=== PATIENT | female | born 1940 | race Caucasian/White ===

== ENCOUNTER 2019-07-18 10:20 | Outpatient (CLI) | payer MEDICARE, SELFPAY ==
[2019-07-18 10:35] LABS: Basophils Absolute Auto 0.08 K/mm3 (0.00-0.10); Basophils Percent Auto 0.9 % (0.0-1.0); Eosinophils Absolute Auto 0.16 K/mm3 (0.02-0.50); Eosinophils Percent Auto 1.8 % (1.0-6.0); Hematocrit 45.4 % (35.0-42.0); Hemoglobin 14.7 g/dL (11.7-13.8); Immature Granulocyte Absolute 0.04 K/mm3 (0.00-0.00); Immature Granulocyte Percent A 0.5 % (0.0-0.0); Lymphocytes Absolute Auto 1.89 K/mm3 (1.10-4.50); Lymphocytes Percent Auto 21.7 % (18.0-42.0); Mean Corpuscular HGB Conc 32.4 g/dL (32.0-36.0); Mean Corpuscular Hemoglobin 29.6 pg (27.0-31.0); Mean Corpuscular Volume 91.3 fL (78.0-102.0); Mean Platelet Volume 9.7 fl (9.2-11.8); Monocytes Absolute Auto 0.79 K/mm3 (0.10-0.90); Monocytes Percent Auto 9.1 % (2.0-11.0); Neutrophils Absolute Auto 5.8 K/mm3 (1.7-7.2); Platelet Count Result 254 K/mm3 (150-420); Red Blood Count 4.97 M/mm3 (4.20-5.40); Red Cell Distribution Width 13.9 % (11.6-14.4); White Blood Count 8.7 K/mm3 (4.8-10.8)
[2019-07-18 11:00] LABS: Anion Gap 11.6 mmol/L (7-16); Blood Urea Nitrogen 20 mg/dL (7-18); Calcium 8.9 mg/dL (8.5-10.1); Carbon Dioxide 29 mmol/L (21-32); Chloride 106 mmol/L (98-108); Estimated Glomerular Filt Rate 53; Glucose 90 mg/dL (70-99); Osmolality Calculated 296 mOsm/kg (285-295); Potassium 4.6 mmol/L (3.5-5.1); Sodium 142 mmol/L (136-145)
== END 2019-07-18 10:21 | disposition home or self-care (01) ==
PROVIDERS: PCP Nurse Practitioner Family; Visit Provider Internal Medicine Hematology & Oncology
DX: I26.99 Other pulmonary embolism without acute cor pulmonale (principal)
CPT/HCPCS: 36415; 80048; 85025

== ENCOUNTER 2020-08-13 12:51 | Outpatient (CLI) | payer MEDICARE, SELFPAY ==
[2020-08-13 13:06] LABS: Basophils Absolute Auto 0.1 K/mm3 (0.0-0.1); Basophils Percent Auto 0.8 % (0.2-1.2); Eosinophils Absolute Auto 0.3 K/mm3 (0-0.3); Eosinophils Percent Auto 2.9 % (0-4.4); Hemoglobin 14.6 g/dL (12.0-15.0); Immature Granulocyte Absolute 0.02 K/mm3 (0.00-0.031); Immature Granulocyte Percent A 0.2 % (0-0.5); Lymphocytes Absolute Auto 2.04 K/mm3 (0.9-3.2); Lymphocytes Percent Auto 22.6 % (18.3-44.2); Mean Corpuscular HGB Conc 31.7 g/dl (32-36); Mean Corpuscular Hemoglobin 29.3 pg (26-34); Mean Corpuscular Volume 92.2 fl (80-100); Mean Platelet Volume 9.5 fl (7.4-10.4); Monocytes Absolute Auto 0.8 K/mm3 (0.1-0.6); Monocytes Percent Auto 8.7 % (2.6-8.5); Neutrophils Absolute Auto 5.8 K/mm3 (1.3-6.7); Neutrophils Percent Auto 64.8 % (45.5-73.1); Platelet Count Result 274 k/mm3 (150-375); Red Blood Count 4.99 M/mm3 (4.2-5.4); Red Cell Distribution Width 13.5 % (11.5-14.5)
[2020-08-13 13:10] LABS: Blood Urea Nitrogen 23 mg/dL (8-26); Carbon Dioxide 30 mmol/L (22-30); Chloride 100 mmol/L (98-109); Estimated Glomerular Filt Rate 53; Glucose 83 mg/dL (70-105); Potassium 4.2 mmol/L (3.5-4.9); Sodium 140 mmol/L (138-146)
[2020-08-13 14:35] LABS: Alanine Aminotransferase 14 U/L (4-35); Albumin Level 3.9 g/dL (3.5-5.1); Alkaline Phosphatase 94 U/L (38-126); Anion Gap 6 mmol/L (8-16); Aspartate Amino Transferase 25 U/L (14-36); Bilirubin,Total 0.3 mg/dL (0.2-1.3); Blood Urea Nitrogen 22 mg/dL (7-17); Calcium 9.1 mg/dL (8.4-10.2); Carbon Dioxide 31 mmol/L (22-30); Chloride 103 mmol/L (98-107); Estimated Glomerular Filt Rate 60; Glucose 84 mg/dL (65-105); Potassium 4.2 mmol/L (3.4-5.0); Sodium 140 mmol/L (137-145)
== END 2020-08-13 12:52 | disposition home or self-care (01) ==
LOC: ANHLAB 12:55
PROVIDERS: PCP Nurse Practitioner Family; Visit Provider Internal Medicine Hematology & Oncology
DX: D68.59 Other primary thrombophilia (principal)
CPT/HCPCS: 36415; 80048; 80053; 85025

== ENCOUNTER 2021-02-03 15:40 | Outpatient (CLI) | payer MEDICARE, SELFPAY ==
[2021-02-03 15:57] LABS: Basophils Absolute Auto 0.07 K/mm3 (0.00-0.10); Basophils Percent Auto 0.8 % (0.0-1.0); Eosinophils Absolute Auto 0.22 K/mm3 (0.02-0.50); Eosinophils Percent Auto 2.5 % (1.0-6.0); Hematocrit 46.6 % (35.0-42.0); Hemoglobin 15.1 g/dL (11.7-13.8); Immature Granulocyte Absolute 0.02 K/mm3 (0.00-0.00); Immature Granulocyte Percent A 0.2 % (0.0-0.0); Lymphocytes Absolute Auto 2.36 K/mm3 (1.10-4.50); Lymphocytes Percent Auto 26.7 % (18.0-42.0); Mean Corpuscular HGB Conc 32.4 g/dL (32.0-36.0); Mean Corpuscular Hemoglobin 30.2 pg (27.0-31.0); Mean Corpuscular Volume 93.2 fL (78.0-102.0); Mean Platelet Volume 9.4 fl (9.2-11.8); Monocytes Absolute Auto 0.88 K/mm3 (0.10-0.90); Neutrophils Absolute Auto 5.3 K/mm3 (1.7-7.2); Neutrophils Percent Auto 59.8 % (50.0-70.0); Platelet Count Result 258 K/mm3 (150-420); Red Cell Distribution Width 13.2 % (11.6-14.4); White Blood Count 8.8 K/mm3 (4.8-10.8)
[2021-02-03 16:30] LABS: Alanine Aminotransferase 23 U/L (14-59); Albumin Level 3.8 g/dL (3.4-5.0); Alkaline Phosphatase 102 U/L (46-116); Anion Gap 7 mmol/L (8-16); Aspartate Amino Transferase 19 U/L (15-37); Bilirubin,Total 0.3 mg/dL (0.00-1.00); Blood Urea Nitrogen 16 mg/dL (7-18); Carbon Dioxide 31 mmol/L (21-32); Chloride 105 mmol/L (98-108); Cholesterol 250 mg/dL (0-200); Estimated Glomerular Filt Rate > 60; Glucose 102 mg/dL (70-99); HDL Direct 49 mg/dL (40-60); LDL Cholesterol Calculated 170 mg/dL (<130); Osmolality Calculated 297 mOsm/kg (285-295); Potassium 5.1 mmol/L (3.5-5.1); Sodium 143 mmol/L (136-145); Triglycerides 157 mg/dL (0-150)
== END 2021-02-03 15:41 | disposition home or self-care (01) ==
LOC: CHSLAB 15:43
PROVIDERS: PCP Nurse Practitioner Family; Visit Provider Nurse Practitioner Family
DX: E78.5 Hyperlipidemia, unspecified (principal); I10 Essential (primary) hypertension
CPT/HCPCS: 36415; 80053; 80061; 85025

== ENCOUNTER 2023-02-15 12:15 | Outpatient (CLI) | payer MEDICARE, SELFPAY ==
[2023-02-15 12:32] LABS: Basophils Absolute Auto 0.1 K/mm3 (0.0-0.1); Basophils Percent Auto 0.8 % (0.2-1.2); Eosinophils Absolute Auto 0.3 K/mm3 (0-0.3); Immature Granulocyte Absolute 0.02 K/mm3 (0.00-0.031); Immature Granulocyte Percent A 0.2 % (0-0.5); Lymphocytes Absolute Auto 2.07 K/mm3 (0.9-3.2); Lymphocytes Percent Auto 25.1 % (18.3-44.2); Mean Corpuscular HGB Conc 32.6 g/dl (32-36); Mean Corpuscular Hemoglobin 30.3 pg (26-34); Mean Corpuscular Volume 93.1 fl (80-100); Mean Platelet Volume 9.2 fl (7.4-10.4); Monocytes Absolute Auto 0.9 K/mm3 (0.1-0.6); Monocytes Percent Auto 10.3 % (2.6-8.5); Neutrophils Percent Auto 60.6 % (45.5-73.1); Platelet Count Result 286 k/mm3 (150-375); Red Blood Count 4.62 M/mm3 (4.2-5.4); Red Cell Distribution Width 12.7 % (11.5-14.5); White Blood Count 8.3 K/mm3 (4.5-10.0)
[2023-02-15 12:37] LABS: Blood Urea Nitrogen 30 mg/dL (8-26); Carbon Dioxide 30 mmol/L (22-30); Chloride 96 mmol/L (98-109); Estimated Glomerular Filt Rate 36; Glucose 97 mg/dL (70-105); Sodium 137 mmol/L (138-146)
[2023-02-15 13:56] LABS: Alanine Aminotransferase 16 U/L (6-35); Albumin Level 3.8 g/dL (3.5-5.1); Alkaline Phosphatase 87 U/L (38-126); Anion Gap 5 mmol/L (8-16); Aspartate Amino Transferase 26 U/L (14-36); Bilirubin,Total 0.4 mg/dL (0.2-1.3); Blood Urea Nitrogen 31 mg/dL (7-17); Calcium 9.1 mg/dL (8.4-10.2); Carbon Dioxide 34 mmol/L (22-30); Chloride 97 mmol/L (98-107); Estimated Glomerular Filt Rate 43; Glucose 95 mg/dL (65-110); Sodium 136 mmol/L (137-145)
== END 2023-02-15 12:16 | disposition home or self-care (01) ==
LOC: ANHLAB 12:18
PROVIDERS: PCP Nurse Practitioner Family; Visit Provider Internal Medicine Hematology & Oncology
DX: D68.69 Other thrombophilia (principal)
CPT/HCPCS: 36415; 80047; 80053; 85025

== ENCOUNTER 2023-11-13 15:57 | Outpatient (CLI) | payer MEDICARE, OTHER, SELFPAY ==
[2023-11-13 16:18] LABS: Basophils Absolute Auto 0.06 K/mm3 (0.00-0.10); Basophils Percent Auto 0.7 % (0.0-1.0); Eosinophils Absolute Auto 0.31 K/mm3 (0.02-0.50); Eosinophils Percent Auto 3.8 % (1.0-6.0); Hematocrit 40.1 % (35.0-42.0); Hemoglobin 13.4 g/dL (11.7-13.8); Immature Granulocyte Absolute 0.03 K/mm3 (0.00-0.00); Immature Granulocyte Percent A 0.4 % (0.0-0.0); Lymphocytes Absolute Auto 1.76 K/mm3 (1.10-4.50); Lymphocytes Percent Auto 21.5 % (18.0-42.0); Mean Corpuscular HGB Conc 33.4 g/dL (32-36); Mean Corpuscular Hemoglobin 29.8 pg (27.0-31.0); Mean Corpuscular Volume 89.3 fL (78.0-102.0); Monocytes Absolute Auto 0.83 K/mm3 (0.10-0.90); Monocytes Percent Auto 10.1 % (2.0-11.0); Neutrophils Percent Auto 63.5 % (50.0-70.0); Platelet Count Result 283 K/mm3 (150-420); Red Blood Count 4.49 M/mm3 (4.20-5.40); Red Cell Distribution Width 12.7 % (11.6-14.4); White Blood Count 8.2 K/mm3 (4.8-10.8)
[2023-11-13 16:19] LABS: Appearance Urine Clear (Clear); Bilirubin Urine Negative (Negative); Blood Urine Trace-intact (Negative); Color Urine Light Yellow (Yellow); Glucose Urine UA Negative (Negative); Ketones Urine Negative (Negative); Leukocyte Esterase Ur 1+ LEU/UL (Negative); Nitrate Urine Negative (Negative); Protein Urine Negative (Negative); Specific Grav Ur <= 1.005 (1.010-1.020); Urobilinogen Urine 0.2 mg/dL (0.2-1.0)
[2023-11-13 16:21] LABS: Add Urine Microscopic? YES
[2023-11-13 16:29] LABS: Bacteria Urine None seen /hpf; Mucus Urine Few /lpf; Squamous Epithelial Cell Urine None Seen /hpf (Few)
[2023-11-13 17:13] LABS: Alanine Aminotransferase 17 U/L (14-59); Albumin Level 3.6 g/dL (3.4-5.0); Alkaline Phosphatase 83 U/L (46-116); Anion Gap 8 mmol/L (4-12); Aspartate Amino Transferase 18 U/L (15-37); Bilirubin,Total 0.4 mg/dL (0.00-1.00); Blood Urea Nitrogen 23 mg/dL (7-18); Calcium 8.7 mg/dL (8.5-10.1); Carbon Dioxide 29 mmol/L (21-32); Chloride 97 mmol/L (98-108); Cholesterol 239 mg/dL (0-200); Estimated Glomerular Filt Rate 50; Glucose 98 mg/dL (70-99); HDL Direct 59 mg/dL (40-60); LDL Cholesterol Calculated 155 mg/dL (<130); Osmolality Calculated 281 mOsm/kg (285-295); Potassium 3.8 mmol/L (3.5-5.1); Sodium 134 mmol/L (136-145); Total Protein 6.7 g/dL (6.4-8.2); Triglycerides 124 mg/dL (0-150)
== END 2023-11-13 15:58 | disposition home or self-care (01) ==
LOC: CHSLAB 16:01
PROVIDERS: PCP Nurse Practitioner Family; Visit Provider Nurse Practitioner Family
DX: I10 Essential (primary) hypertension (principal); R31.9 Hematuria, unspecified; E78.5 Hyperlipidemia, unspecified; R82.90 Unspecified abnormal findings in urine
CPT/HCPCS: 36415; 80053; 80061; 81001; 85025; 87086; 87088

== ENCOUNTER 2024-02-16 09:27 | Outpatient (NON) | payer MEDICARE, SELFPAY ==
[2024-02-16 09:35] LABS: Bilirubin Urine Negative (Negative); Blood Urine 3+ (Negative); Glucose Urine UA Negative (Negative); Ketones Urine Negative (Negative); Leukocyte Esterase Ur 1+ LEU/UL (Negative); Nitrate Urine Negative (Negative); Protein Urine 1+ (Negative); Specific Grav Ur 1.015 (1.010-1.020); Urobilinogen Urine 0.2 mg/dL (0.2-1.0); pH Urine 6.5 (5.0-8.0)
[2024-02-16 09:37] LABS: Add Urine Microscopic? YES
[2024-02-16 09:38] LABS: Color Urine Light Red (Yellow)
[2024-02-16 09:40] LABS: Appearance Urine Cloudy (Clear); Bacteria Urine 1+ /hpf; Squamous Epithelial Cell Urine Few /hpf (Few); WBC Urine 51-75 /hpf (0-3)
== END 2024-02-16 09:28 | disposition home or self-care (01) ==
LOC: CHSLAB 09:28
PROVIDERS: PCP Nurse Practitioner Family; Visit Provider Nurse Practitioner Family
DX: R31.9 Hematuria, unspecified (principal)
CPT/HCPCS: 81001; 87086; 87088

== ENCOUNTER 2024-02-21 12:30 | Outpatient (CLI) | payer MEDICARE, OTHER, SELFPAY ==
[2024-02-21 12:44] LABS: Basophils Absolute Auto 0.1 K/mm3 (0.0-0.1); Basophils Percent Auto 0.7 % (0.2-1.2); Eosinophils Absolute Auto 0.3 K/mm3 (0-0.3); Hematocrit 42.8 % (37.0-47.0); Hemoglobin 13.8 g/dL (12.0-15.0); Immature Granulocyte Absolute 0.04 K/mm3 (0.00-0.031); Immature Granulocyte Percent A 0.4 % (0-0.5); Lymphocytes Absolute Auto 2.12 K/mm3 (0.9-3.2); Lymphocytes Percent Auto 19.5 % (18.3-44.2); Mean Corpuscular HGB Conc 32.2 g/dl (32-36); Mean Corpuscular Hemoglobin 29.9 pg (26-34); Mean Corpuscular Volume 92.6 fl (80-100); Mean Platelet Volume 9.1 fl (7.4-10.4); Monocytes Percent Auto 8.9 % (2.6-8.5); Neutrophils Absolute Auto 7.3 K/mm3 (1.3-6.7); Neutrophils Percent Auto 67.5 % (45.5-73.1); Platelet Count Result 301 k/mm3 (150-375); Red Blood Count 4.62 M/mm3 (4.2-5.4); Red Cell Distribution Width 12.9 % (11.5-14.5); White Blood Count 10.9 K/mm3 (4.5-10.0)
[2024-02-21 12:48] LABS: Blood Urea Nitrogen 22 mg/dL (8-26); Carbon Dioxide 29 mmol/L (22-30); Chloride 98 mmol/L (98-109); Estimated Glomerular Filt Rate 39; Glucose 90 mg/dL (70-105); Ionized Calcium (POC) 1.14 mmol/L (1.11-1.31); Potassium 3.8 mmol/L (3.5-4.9); Sodium 136 mmol/L (138-146)
== END 2024-02-21 12:31 | disposition home or self-care (01) ==
LOC: ANHLAB 12:32
PROVIDERS: PCP Nurse Practitioner Family; Visit Provider Internal Medicine Hematology & Oncology
DX: D68.69 Other thrombophilia (principal)
CPT/HCPCS: 36415; 80047; 85025

== ENCOUNTER 2024-03-17 15:04 | Emergency (ER) | payer MEDICARE, OTHER, SELFPAY ==
[2024-03-17] VITALS (43 sets, daily range): BP systolic 108–158; BP diastolic 51–77; PULSE 56–71; RESP 19–27; TEMP 36.4; O2SAT 94–100
--- NOTE | ~2024-03-17 | CT_ITS ---
EXAMINATION: CT brain wo con DATE: 03/17/2024 16:04 INDICATION: AMS/weakness x5 days . TECHNIQUE: Computed tomography (CT) of the head was performed without intravenous contrast. The mA wa s adjusted according to patient size. Iterative reconstruction technique was employed. The dose-lengt h product was 605.33 mGy-cm. COMPARISON: None. FINDINGS: No acute intracranial hemorrhage or extra-axial fluid collection. No hydrocephalus, mass, or herniation. No acute ischemic infarct. Unremarkable dural venous sinus attenuation. No acute osseous abnormality. The aerated spaces are clear. Mild atrophy and moderate chronic white matter change. Atherosclerotic intracranial calcification. Sm all old bilateral basal ganglia lacunar infarcts. Left lens replacement. IMPRESSION: No acute intracranial process. Reviewed, dictated and finalized at location K. F ENGINEER
--- NOTE | ~2024-03-17 | CT_ITS ---
EXAMINATION: CT abdomen pelvis wo con DATE: 03/17/2024 18:55 INDICATION: Acute renal failure TECHNIQUE: Computed tomography (CT) of the abdomen and pelvis was performed without intravenous contr ast. Automated exposure control and iterative reconstruction technique were employed. The dose-length product was 763.16 mGy-cm. COMPARISON: None. FINDINGS: Lower thorax: Large hiatal hernia containing the majority of the stomach. Aortic valve and coronary a rtery calcification. Liver: Normal. Biliary/Gallbladder: Gallbladder is normal. No bile duct dilation. Pancreas: No mass or duct dilation. Spleen: Normal. Adrenals:No mass. Kidneys: Simple bilateral cysts. No hydronephrosis. Left renal atrophy. No obstructing calcifications . Mild bilateral perinephric stranding. GI tract: No small or large bowel dilation. Appendix not confidently visualized. Diverticulosis witho ut diverticulitis. Mesentery/Peritoneum: No ascites, mass, or free air. Retroperitoneum: No mass. Atherosclerotic abdominal aortic and/or arterial calcifications. Pelvis: Moderate bladder wall thickening. 1.5 cm intraluminal soft tissue density projecting off the left lateral bladder wall. Small volume deep pelvic fluid. Absent uterus. Ovaries not visualized. Soft Tissues: Soft tissues and body wall unremarkable. Bones: No acute osseous finding. IMPRESSION: Left renal atrophy. No hydronephrosis. Cystitis versus urinary bladder wall thickening from incomplete distention. Small volume pelvic ascites. 1.5 cm bladder mass, recommend urology referral. Reviewed, dictated and finalized at location K. REPAIR MACHINIST
--- NOTE | ~2024-03-17 | XR_ITS ---
EXAMINATION: XR chest 1V portable Exam Date/Time: 03/17/2024 17:15 OWNER OPERATOR HISTORY: weakness/AMS x5 days Comparison: 03/26/2016. RESULT: Lines, tubes, and devices: None. Lungs and pleura: Segmental left basilar opacity. Costophrenic angle blunting on the left. Cardiomediastinal silhouette: Stable. Moderate hiatal hernia. Other: No acute osseous or upper abdominal finding. IMPRESSION: Segmental left basilar atelectasis/consolidation. Small left pleural effusion versus chronic pleural blunting. Reviewed, dictated and finalized at location K. R OPERATOR IMPRESSION: Segmental left basilar atelectasis/consolidation. Small left pleural effusion v ersus chronic pleural blunting.
--- NOTE | 2024-03-17 15:29 | ECG_ITS ---
Test Date: 2024-03-17 15:50:32 Measurements Intervals [place] Rate: 61 P: 52 VT: 119 QRS: 5 QRSD: 106 T: 28 QT: 416 QTc: 420 Interpretive Statements SINUS RHYTHM WITH SHORT VT INTERVAL EARLY PRECORDIAL R/S TRANSITION LEFT VENTRICULAR HYPERTROPHY WITH ST-T CHANGE BORDERLINE ST-T WAVE ABNORMALITY- ANTEROLAT/INF LEADS BASELINE ARTIFACT- I, II, III, AVR, AVL, AVF, V1-V6 BORDERLINE ECG No previous ECG available for comparison Electronically Signed On 03-17-2024 18:26:28 WATER SERVER by Stanley Lo D.O.
--- NOTE | 2024-03-17 15:44 | ED.GENADULT ---
HPI - General Adult General Chief complaint: Weakness Stated complaint: weakness History of Present Illness HPI narrative: Malia is an 83F with a PMH of HTN, HLD that came to the ED with weakness for 5 days. She reports that she has gradually been getting weaker since then but came in today after a son thought she was slurring her speech on the phone. She denies headache, N/V, diarrhea, chest pain, abdominal pain and dyspnea. Related Data Home Medications Medication Instructions Recorded Confirmed acetaminophen 650 mg 650 mg PO DAILY 08/06/19 03/17/24 tablet,extended release (Arthritis Pain Relief (acetaminophen) ER) loratadine 5 mg-pseudoephedrine ER 1 tablet PO DAILY 08/06/19 03/17/24 120 mg tablet,extended release,12hr (Claritin-D 12 Hour) uzxzajbw-dblr-ocac 8 mg-folic 400 1 tablet PO DAILY 08/06/19 03/17/24 mcg-K 50 mcg-lutein 300 mcg tablet (Multivitamin Women 50 Plus) rivaroxaban 20 mg tablet (Xarelto) 20 mg PO QPM 08/06/19 03/17/24 sodium chloride 5 % eye ointment 1 applic EACH EYE DAILY 02/03/21 03/17/24 (Romi 128) ascorbic acid (vitamin C) 500 mg 500 mg PO DAILY 11/13/23 03/17/24 capsule omega 1-vfd-sec-fish oil 300 1 cap PO DAILY 11/13/23 03/17/24 mg-1,000 mg capsule (Fish Oil) vitamin E (dl, acetate) 450 mg 450 mg PO DAILY 11/13/23 03/17/24 (1,000 unit) capsule atenolol 50 mg tablet 50 mg PO BID 03/17/24 03/17/24 chlorthalidone 25 mg tablet 25 mg PO DAILY 03/17/24 03/17/24 Allergies Allergy/AdvReac Type Severity Reaction Status Date / Time diclofenac [Arthrotec 50] Allergy Intermediate Unknown Verified 03/17/24 15:11 Eqtpgez-BIQ-BpN Reductase Allergy Intermediate Unknown Verified 03/17/24 15:11 Inhibitor [Coqnswv-Ets-Gtc Reductase Inhibitor] Review of Systems Review of Systems: All systems reviewed & are unremarkable except as noted in HPI and below PMFSH Past Medical History Medical History DVT (deep venous thrombosis) HTN (hypertension) Hyperlipidemia Osteoarthritis knees Overweight Pulmonary embolism Surgical History Surgical History History of appendectomy 2002 Hx of hysterectomy 2002 Family History Family History Father Hypertension Family history of arthritis Other Family history of malignant neoplasm Social History Social History Smoking status: Never smoker Alcohol intake: current Exam Const: General: cooperative, healthy appearing, comfortable, no acute distress, well developed, alert, awake and Physically active Orientation/consciousness: oriented to person, oriented to place and oriented to time HENMT: Head: normal to inspection, normocephalic and atraumatic Ears: hearing grossly normal bilaterally and external ears normal Face/Nose/Sinus: Normal external nose present Eyes: General: appearance normal, both eyes and all related structures Periorbital: periorbital findings normal Sclera: sclerae normal Pupils: Equal, round and reactive pupils present Neck: Neck: normal visual inspection Chest: Chest palpation & inspection: normal inspection of the chest Resp: Effort & Inspection: normal respiratory effort, able to speak in complete sentences and no respiratory distress Auscultation: clear to auscultation bilaterally Cardio: Jugular venous distension: no JVD Rate: regular rate Rhythm: regular rhythm GI: Inspection: normal to inspection GI Palp: Yes Soft to palpation Auscultation: normal bowel sounds Skin: General skin exam: normal color and no rashes or lesions noted Neuro: General: oriented to person, oriented to place and oriented to time Cranial nerves: Yes Equal, round and reactive pupils present Extrem: General: normal to inspection Course Course Emergency Course: Ordered labs, EKG, and CT brain. EKG showed NSR with a rate of 61, normal axis, no ST elevation/depression or ectopy EXAMINATION: CT brain wo con DATE: 03/17/2024 16:04 INDICATION: AMS/weakness x5 days . TECHNIQUE: Computed tomography (CT) of the head was performed without intravenous contrast. The mA was adjusted according to patient size. Iterative reconstruction technique was employed. The dose-length product was 605.33 mGy-cm. COMPARISON: None. FINDINGS: No acute intracranial hemorrhage or extra-axial fluid collection. No hydrocephalus, mass, or herniation. No acute ischemic infarct. Unremarkable dural venous sinus attenuation. No acute osseous abnormality. The aerated spaces are clear. Mild atrophy and moderate chronic white matter change. Atherosclerotic intracranial calcification. 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 Left lens replacement. IMPRESSION: No acute intracranial process. EXAMINATION: XR chest 1V portable Exam Date/Time: 03/17/2024 17:15 MANAGER DENTAL HISTORY: weakness/AMS x5 days Comparison: 03/26/2016. RESULT: Lines, tubes, and devices: None. Lungs and pleura: Segmental left basilar opacity. Costophrenic angle blunting on the left. Cardiomediastinal silhouette: Stable. Moderate hiatal hernia. Other: No acute osseous or upper abdominal finding. IMPRESSION: Segmental left basilar atelectasis/consolidation. Small left pleural effusion versus chronic pleural blunting. Labs showed severe leukocytosis, hyponatremia, hyperkalemia, Cr. of 5.59, GFR of 7, Contacted [facility] for Admission at 1830. Critical recommended 2L of fluids, recheck BMP and to get a CT abd/pelvis. Given ceftriaxone given results of UA. EXAMINATION: CT abdomen pelvis wo con DATE: 03/17/2024 18:55 INDICATION: Acute renal failure TECHNIQUE: Computed tomography (CT) of the abdomen and pelvis was performed without intravenous contrast. Automated exposure control and iterative reconstruction technique were employed. The dose-length product was 763.16 mGy-cm. COMPARISON: None. FINDINGS: Lower thorax: Large hiatal hernia containing the majority of the stomach. Aortic valve and coronary artery calcification. Liver: Normal. Biliary/Gallbladder: Gallbladder is normal. No bile duct dilation. Pancreas: No mass or duct dilation. Spleen: Normal. Adrenals:No mass. Kidneys: Simple bilateral cysts. No hydronephrosis. Left renal atrophy. No obstructing calcifications. Mild bilateral perinephric stranding. GI tract: No small or large bowel dilation. Appendix not confidently visualized. Diverticulosis without diverticulitis. Mesentery/Peritoneum: No ascites, mass, or free air. Retroperitoneum: No mass. Atherosclerotic abdominal aortic and/or arterial calcifications. Pelvis: Moderate bladder wall thickening. 1.5 cm intraluminal soft tissue density projecting off the left lateral bladder wall. Small volume deep pelvic fluid. Absent uterus. Ovaries not visualized. Soft Tissues: Soft tissues and body wall unremarkable. Bones: No acute osseous finding. IMPRESSION: Left renal atrophy. No hydronephrosis. Cystitis versus urinary bladder wall thickening from incomplete distention. Small volume pelvic ascites. 1.5 cm bladder mass, recommend urology referral. After fluids and albuterol sodium improved to 124, K+ improved to 3.9, but Cr. was still very elevated. Dr. Sierra accepted the transfer at 2207 Vital Signs Vital signs: Vital Signs Temperature 97.5 F L 03/17/24 15:06 Pulse Rate 71 03/17/24 15:06 Respiratory Rate 20 03/17/24 15:06 Blood Pressure 147/69 H 03/17/24 15:06 Pulse Oximetry 95 03/17/24 15:06 Oxygen Delivery Room Air 03/17/24 15:06 Temperature 97.5 F L 03/17/24 15:06 Pulse Rate 62 03/17/24 23:32 Respiratory Rate 19 03/17/24 20:15 Blood Pressure 136/76 03/17/24 23:32 Pulse Oximetry 99 03/17/24 23:32 Oxygen Delivery Room Air 03/17/24 17:00 Oxygen Flow Rate 10 03/17/24 18:48 Medical Decision Making Vital Signs Vital Signs: Vital Signs Temperature 97.5 F L 03/17/24 15:06 Pulse Rate 71 03/17/24 15:06 Respiratory Rate 20 03/17/24 15:06 Blood Pressure 147/69 H 03/17/24 15:06 Pulse Oximetry 95 03/17/24 15:06 Oxygen Delivery Room Air 03/17/24 15:06 Temperature 97.5 F L 03/17/24 15:06 Pulse Rate 62 03/17/24 23:32 Respiratory Rate 19 03/17/24 20:15 Blood Pressure 136/76 03/17/24 23:32 Pulse Oximetry 99 03/17/24 23:32 Oxygen Delivery Room Air 03/17/24 17:00 Oxygen Flow Rate 10 03/17/24 18:48 Lab Data 03/17/24 15:29 03/17/24 21:17 Labs: Lab Results 03/17/24 03/17/24 03/17/24 Range/Units 15:29 15:30 17:45 WBC 23.8 H* (4.8-10.8) K/mm3 RBC 4.19 L (4.20-5.40) M/mm3 Hgb 12.5 (11.7-13.8) g/dL Hct 35.2 (35.0-42.0) % MCV 84.0 (78.0-102.0) fL MCH 29.8 (27.0-31.0) pg MCHC 35.5 (32-36) g/dL RDW 13.7 (11.6-14.4) % Plt Count 209 (150-420) K/mm3 MPV 10.6 (9.2-11.8) fl Immature Gran % (Auto) Not Reportable Neut % (Auto) Not Reportable Lymph % (Auto) Not Reportable [place] % (Auto) Not Reportable Eos % (Auto) Not Reportable Baso % (Auto) Not Reportable Lymph # (Auto) Not Reportable [place] # (Auto) Not Reportable Eos # (Auto) Not Reportable Baso # (Auto) Not Reportable Abs Immat Gran (auto) Not Reportable Absolute Neuts (auto) Not Reportable Absolute Nucleated RBC Not Reportable Total Counted 100 Neutrophils % (Manual) 82 H (46-73) % Band Neutrophils % 0 (0-6) % Lymphocytes % (Manual) 8 L (18-44) % Monocytes % (Manual) 10 H (3-9) % Nucleated RBC % Not Reportable Abs Neuts (Manual) 19.51 H (1.7-7.2) K/mm3 Abs Lymphs (Manual) 1.90 (1.1-4.5) K/mm3 Abs Monocytes (Manual) 2.38 H (0.1-0.90) K/mm3 Hypersegmented Neuts Present Other Cell Type See comment Toxic Granulation Present Platelet Estimate Adequate (Adequate) Schistocytes None seen Sodium 120 L (136-145) mmol/L Potassium 5.5 H (3.5-5.1) mmol/L Chloride 85 L (98-108) mmol/L Carbon Dioxide 20 L (21-32) mmol/L Anion Gap 15 H (4-12) mmol/L BUN 103 H (7-18) mg/dL Creatinine 5.59 H* (0.55-1.02) mg/dL Estim Creat Clear Calc 8 ml/min Estimated GFR 7 L (59 - ) Glucose 77 (70-99) mg/dL Calculated Osmolality 281 L (285-295) mOsm/kg Lactic Acid 1.5 (0.4-2.0) mmol/L Calcium 9.1 (8.5-10.1) mg/dL Magnesium 2.3 (1.8-2.4) mg/dL Total Bilirubin 1.0 (0.00-1.00) mg/dL AST 45 H (15-37) U/L ALT 25 (14-59) U/L Alkaline Phosphatase 241 H (46-116) U/L Troponin I 49.8 (0.00-60.4) ng/L NT-Pro-B Natriuret Pep 79593 H (0-450) pg/mL Total Protein 6.4 (6.4-8.2) g/dL Albumin 1.8 L (3.4-5.0) g/dL Urine Color Yellow (Yellow) Urine Appearance Turbid A (Clear) Urine pH 5.5 (5.0-8.0) Ur Specific [place] 1.015 (1.010-1.020) Urine Protein 2+ H (Negative) Urine Glucose (UA) Negative (Negative) Urine Ketones Trace H (Negative) Ur Blood (Man) 3+ H (Negative) Urine Nitrate Negative (Negative) Urine Bilirubin Negative (Negative) Urine Urobilinogen 0.2 (0.2-1.0) mg/dL Leukocyte Esterase Rfl 3+ H (Negative) [place]/UL Urine RBC >75 H (0-2) /hpf Urine WBC >75 H (0-3) /hpf Urine WBC Clumps Present H (None) /hpf Amorphous Sediment Heavy H (None) Urine Bacteria 4+ H (None) /hpf Influenza A (RT-PCR) Negative (Negative) Influenza B (RT-PCR) Negative (Negative) RSV (RT-PCR) Negative (Negative) SARS-CoV-2 RNA (RT-PCR) Negative (Negative) 03/17/24 Range/Units 21:17 WBC (4.8-10.8) K/mm3 RBC (4.20-5.40) M/mm3 Hgb (11.7-13.8) g/dL Hct (35.0-42.0) % MCV (78.0-102.0) fL MCH (27.0-31.0) pg MCHC (32-36) g/dL RDW (11.6-14.4) % Plt Count (150-420) K/mm3 MPV (9.2-11.8) fl Immature Gran % (Auto) Neut % (Auto) Lymph % (Auto) [place] % (Auto) Eos % (Auto) Baso % (Auto) Lymph # (Auto) [place] # (Auto) Eos # (Auto) Baso # (Auto) Abs Immat Gran (auto) Absolute Neuts (auto) Absolute Nucleated RBC Total Counted Neutrophils % (Manual) (46-73) % Band Neutrophils % (0-6) % Lymphocytes % (Manual) (18-44) % Monocytes % (Manual) (3-9) % Nucleated RBC % Abs Neuts (Manual) (1.7-7.2) K/mm3 Abs Lymphs (Manual) (1.1-4.5) K/mm3 Abs Monocytes (Manual) (0.1-0.90) K/mm3 Hypersegmented Neuts Other Cell Type Toxic Granulation Platelet Estimate (Adequate) Schistocytes Sodium 124 L (136-145) mmol/L Potassium 3.9 (3.5-5.1) mmol/L Chloride 88 L (98-108) mmol/L Carbon Dioxide 19 L (21-32) mmol/L Anion Gap 17 H (4-12) mmol/L BUN 101 H (7-18) mg/dL Creatinine 5.49 H* (0.55-1.02) mg/dL Estim Creat Clear Calc 8 ml/min Estimated GFR 7 L (59 - ) Glucose 74 (70-99) mg/dL Calculated Osmolality 288 (285-295) mOsm/kg Lactic Acid (0.4-2.0) mmol/L Calcium 8.9 (8.5-10.1) mg/dL Magnesium (1.8-2.4) mg/dL Total Bilirubin (0.00-1.00) mg/dL AST (15-37) U/L ALT (14-59) U/L Alkaline Phosphatase (46-116) U/L Troponin I (0.00-60.4) ng/L NT-Pro-B Natriuret Pep (0-450) pg/mL Total Protein (6.4-8.2) g/dL Albumin (3.4-5.0) g/dL Urine Color (Yellow) Urine Appearance (Clear) Urine pH (5.0-8.0) Ur Specific [place] (1.010-1.020) Urine Protein (Negative) Urine Glucose (UA) (Negative) Urine Ketones (Negative) Ur Blood (Man) (Negative) Urine Nitrate (Negative) Urine Bilirubin (Negative) Urine Urobilinogen (0.2-1.0) mg/dL Leukocyte Esterase Rfl (Negative) [place]/UL Urine RBC (0-2) /hpf Urine WBC (0-3) /hpf Urine WBC Clumps (None) /hpf Amorphous Sediment (None) Urine Bacteria (None) /hpf Influenza A (RT-PCR) (Negative) Influenza B (RT-PCR) (Negative) RSV (RT-PCR) (Negative) SARS-CoV-2 RNA (RT-PCR) (Negative) ABG Data ABG results: 03/17/24 17:45 VBG pH 7.33 VBG pCO2 42.8 VBG pO2 27.1 L VBG HCO3 21.9 L O2 Delivery Device Other device O2 Liters/Min 10.0 Discharge Plan Discharge Clinical Impression: Acute renal failure Patient Disposition: Home, Self-Care Condition: Serious Prescriptions: No Action chlorthalidone 25 mg tablet 25 mg PO DAILY Rx Instructions: TAKE 1 TABLET BY MOUTH EVERY DAY atenolol 50 mg tablet 50 mg PO BID Rx Instructions: TAKE 1 TABLET BY MOUTH TWICE A DAY acetaminophen [Arthritis Pain Relief (acetam)] 650 mg Tablet Extended Release 650 mg PO DAILY Claritin-D 12 Hour 5-120 mg Tablet Extended Release 12 Hr 1 tablet PO DAILY Multivitamin Women 50 Plus 8 mg iron-400 mcg-300 mcg Tablet 1 tablet PO DAILY Xarelto 20 mg Tablet 20 mg PO QPM sodium chloride [Romi 128] 5 % ointment 1 applic EACH EYE DAILY ascorbic acid (vitamin C) 500 mg capsule 500 mg PO DAILY vitamin E (dl, acetate) 450 mg (1,000 unit) capsule 450 mg PO DAILY omega 9-hii-scs-fish oil [Fish Oil] 300-1,000 mg capsule 1 cap PO DAILY Follow-up/Referrals: UNKNOWN,DOCTOR [Primary Care Provider] -
[2024-03-17 15:48] LABS: Hematocrit 35.2 % (35.0-42.0); Hemoglobin 12.5 g/dL (11.7-13.8); Mean Corpuscular HGB Conc 35.5 g/dL (32-36); Mean Corpuscular Hemoglobin 29.8 pg (27.0-31.0); Mean Platelet Volume 10.6 fl (9.2-11.8); Platelet Count Result 209 K/mm3 (150-420); Red Blood Count 4.19 M/mm3 (4.20-5.40); Red Cell Distribution Width 13.7 % (11.6-14.4)
--- NOTE | 2024-03-17 15:53 | PC.NURSE ---
covid culture sent to lab
[2024-03-17 16:03] LABS: White Blood Count 23.8 K/mm3 (4.8-10.8)
[2024-03-17 16:18] LABS: Lactic Acid Reflex 1.5 mmol/L (0.4-2.0)
[2024-03-17 16:29] LABS: Influenza A QL RT-PCR Negative (Negative); Influenza B QL RT-PCR Negative (Negative); RSV RNA, RT-PCR Negative (Negative); SARS-CoV-2 RNA PCR Negative (Negative)
[2024-03-17 16:40] LABS: Alanine Aminotransferase 25 U/L (14-59); Albumin Level 1.8 g/dL (3.4-5.0); Alkaline Phosphatase 241 U/L (46-116); Anion Gap 15 mmol/L (4-12); Aspartate Amino Transferase 45 U/L (15-37); Blood Urea Nitrogen 103 mg/dL (7-18); Calcium 9.1 mg/dL (8.5-10.1); Carbon Dioxide 20 mmol/L (21-32); Chloride 85 mmol/L (98-108); Estimated CRCL calculation 8 ml/min; Estimated Glomerular Filt Rate 7; Glucose 77 mg/dL (70-99); Magnesium 2.3 mg/dL (1.8-2.4); NT Pro B Type Natriuretic Pept 19788 pg/mL (0-450); Osmolality Calculated 281 mOsm/kg (285-295); Potassium 5.5 mmol/L (3.5-5.1); Total Protein 6.4 g/dL (6.4-8.2); Troponin I 49.8 ng/L (0.00-60.4)
[2024-03-17 16:49] LABS: Sodium 120 mmol/L (136-145)
[2024-03-17] MEDS: ALBUTEROL SULFATE NEB 2.5 MG/3 ML INH 15 MG INHALATION (17:18)
[2024-03-17] MEDS: SODIUM CHLORIDE 0.9% IV 1,000 ML 999 ML IV CONT ×2 (17:57→19:08)
[2024-03-17 18:11] LABS: HCO3 VBG 21.9 mEq/l (24.0-30.0); PCO2 VBG 42.8 mmHg (42.0-48.0); PO2 VBG 27.1 mmHg (35.0-45.0); pH VBG 7.33 (7.33-7.43)
[2024-03-17 18:20] LABS: Device OTHER DEVICE
[2024-03-17 19:15] LABS: Band Neutrophils Percent 0 % (0-6); Lymphocytes Percent Manual 8 % (18-44); Monocytes Absolute Manual 2.38 K/mm3 (0.1-0.90); Monocytes Percent Manual 10 % (3-9); Neutrophils Absolute Manual 19.51 K/mm3 (1.7-7.2); Neutrophils Percent Manual 82 % (46-73); Total Cells Counted 100
[2024-03-17 19:16] LABS: Hypersegmented Neutrophils Present; Platelet Estimate Adequate (Adequate); Schistocytes None Seen; Toxic Granulation Present
[2024-03-17 19:21] LABS: Add Urine Microscopic? YES; Bilirubin Urine Negative (Negative); Blood Urine 3+ (Negative); Color Urine Yellow (Yellow); Glucose Urine UA Negative (Negative); Ketones Urine Trace (Negative); Leukocyte Esterase Ur 3+ LEU/UL (Negative); Nitrate Urine Negative (Negative); Protein Urine 2+ (Negative); Specific Grav Ur 1.015 (1.010-1.020); Urobilinogen Urine 0.2 mg/dL (0.2-1.0); pH Urine 5.5 (5.0-8.0)
[2024-03-17 19:29] LABS: Amorphous Sediment Urine Heavy; Appearance Urine Turbid (Clear); Bacteria Urine 4+ /hpf; RBC Urine >75 /hpf (0-2); WBC Clumps Urine Present /hpf; WBC Urine >75 /hpf (0-3)
[2024-03-17] MEDS: cefTRIAXone 2 GM/NS 100 ML 2 GM/100 ML BAG IVPB (19:57)
[2024-03-17 21:32] LABS: Anion Gap 17 mmol/L (4-12); Blood Urea Nitrogen 101 mg/dL (7-18); Calcium 8.9 mg/dL (8.5-10.1); Carbon Dioxide 19 mmol/L (21-32); Chloride 88 mmol/L (98-108); Estimated CRCL calculation 8 ml/min; Estimated Glomerular Filt Rate 7; Glucose 74 mg/dL (70-99); Osmolality Calculated 288 mOsm/kg (285-295); Potassium 3.9 mmol/L (3.5-5.1); Sodium 124 mmol/L (136-145)
--- NOTE | 2024-03-20 12:42 | PC.NURSE ---
blood and urine preliminary cultures noted. results still pending. pt transferred to [facility]
--- NOTE | 2024-03-21 13:11 | PC.NURSE ---
1310 CONTACTED KAREN RODRIGUEZ SHE WILL FOLLOW UP WITH PT ON FLOOR FOR FINAL BLOOD CULTURE POSITIVE FOR ESCHERICHIA COLI PT RECIEVED ROCEPHIN 2GM IVPB IN ER
== END 2024-03-17 23:50 | disposition short-term general hospital (02) ==
PROVIDERS: Emergency Provider Family Medicine
DX: N17.9 Acute kidney failure, unspecified (principal); I10 Essential (primary) hypertension; E78.5 Hyperlipidemia, unspecified; Z79.899 Other long term (current) drug therapy; Z79.01 Long term (current) use of anticoagulants; Z20.822 Contact with and (suspected) exposure to COVID-19
CPT/HCPCS: 36415; 70450; 71045; 74176; 80048; 80053; 81001; 82803; 83605; 83735; 83880; 84484; 85025; 87040; 87086; 87186; 87637; 93005; 96361; 96365; 99285; J0696; J7030

== ENCOUNTER 2024-03-18 02:42 | Inpatient (IN) | payer MEDICARE, OTHER, SELFPAY ==
[2024-03-18] VITALS (20 sets, daily range): BP systolic 130–153; BP diastolic 44–71; PULSE 60–71; RESP 18–20; TEMP 36.3–36.8; O2SAT 93–100; BMI 29.7
--- NOTE | 2024-03-18 | ECHO_ITS ---
Patient Info Name: Malia Selby Age: 83 years : 1940 Gender: Female Ht: 67 in Wt: 190 lbs BSA: 2.04 m2 HR: 64 bpm BP: 130 / 56 mmHg Technical Quality: Fair Exam Date: 03/18/2024 10:37 AM Exam Location: Echo Lab Patient Status: Inpatient Admit Date: 03/18/2024 Staff Ordering Physician: Kennedy Sierra MD Parts Consultant: Anibal Maria RDCS Attending Provider: Kennedy Sierra MD Referring Physician: Rigo KILPATRICK; Exam Type: CA echo doppler color flow Study Info Indications - MATTHEW Complete two-dimensional, color flow and Doppler transthoracic echocardiogram is performed. Summary 1. Complete two-dimensional, color flow and Doppler transthoracic echocardiogram is performed. 2. Left ventricular systolic function is normal, estimated at 55-60%. 3. There is mildly increased left ventricular wall thickness. 4. The left ventricular diastolic function is grade I diastolic dysfunction. 5. Left atrial chamber dimension is mildly enlarged. 6. There is mild aortic valve stenosis. FLOR 1.4cm2 and mean gradient 7 mm Hg. 7. There is mild aortic valve calcification. 8. There is mild mitral valve regurgitation. 9. There is trace tricuspid valve regurgitation. 10. No pulmonary hypertension, estimated pulmonary arterial systolic pressure is 24 mmHg. Left Ventricle Left ventricular chamber dimension is normal. Left ventricular systolic function is normal, estimated at 55-60%. There is mildly increased left ventricular wall thickness. Left ventricular septal wall motion is normal. The left ventricular diastolic function is grade I diastolic dysfunction. Right Ventricle Right ventricular chamber dimension is normal. Right ventricular systolic function is normal. Left Atria Left atrial chamber dimension is mildly enlarged. Right Atria Right atrial chamber dimension is normal. Atrial Septum Intact interatrial septum visualized by color flow imaging. Aortic Valve The aortic valve is trileaflet. There is no aortic valve sclerosis. There is mild aortic valve stenosis. FLOR 1.4cm2 and mean gradient 7 mm Hg. There is no aortic valve regurgitation. There is mild aortic valve calcification. Pulmonic Valve The pulmonic valve is normal. There is no pulmonic valve stenosis. There is no pulmonic regurgitation. Mitral Valve The mitral valve has normal leaflets. There is no mitral valve stenosis. There is mild mitral valve regurgitation. Tricuspid Valve The tricuspid valve leaflets are normal. There is no significant tricuspid valve stenosis. There is trace tricuspid valve regurgitation. No pulmonary hypertension, estimated pulmonary arterial systolic pressure is 24 mmHg. Pericardium/Pleural The pericardium appears normal. There is no pericardial effusion. Aorta The aortic root size at the sinus of Valsalva is normal. The prox ascending aorta size is normal. Left Ventricular Outflow Tract Name Value Normal LVOT 2D LVOT Diameter 2.0 cm LVOT Doppler LVOT Peak Gradient 3 mmHg LVOT Mean Gradient 1 mmHg LVOT VTI 21 cm LVOT VTI/AV VTI Ratio 0.5 LVOT Stroke Volume 62 ml LVOT CO 4.0 l/min LVOT CI 2.0 l/min/m2 Mitral Valve Name Value Normal MV Doppler MV Decel Mcmullen 275 cm/s2 MV PHT 70 ms MV Area (PHT) 3.1 cm2 4.0-5.0 MV Regurgitation Doppler MR Peak Gradient 67 mmHg MV Diastolic Function MV E Peak Velocity 67 cm/s MV A Peak Velocity 102 cm/s MV E/A 0.7 MV Decel Time 243 ms MV Annular TDI MV E/e' (Septal) 16.1 <=8.0 MV E/e' (Lateral) 10.0 <=8.0 MV E/e' (Average) 13.0 Tricuspid Valve Name Value Normal TV Regurgitation Doppler TR Peak Velocity 189 cm/s TR Peak Gradient 14 mmHg Estimated PAP/RSVP RA Pressure 10 mmHg <=5 PA Systolic Pressure 24 mmHg <36 RV Systolic Pressure 24 mmHg <36 Aortic Valve Name Value Normal AV Doppler AV Peak Velocity 176 cm/s AV Peak Gradient 12 mmHg AV Mean Gradient 7 mmHg AV VTI 44 cm AV Area (Cont Eq VTI) 1.4 cm2 >=3.0 AV Area (Cont Eq Abner) 1.4 cm2 AV Regurgitation 2D LVOT Area 3.0 cm2 Ventricles Name Value Normal LV Dimensions 2D/MM IVS Diastolic Thickness (2D) 1.2 cm 0.6-1.0 LVID Diastole (2D) 4.9 cm 3.8-5.2 LVIW Diastolic Thickness (2D) 1.2 cm 0.6-0.9 LVID Systole (2D) 3.3 cm 2.2-3.5 LVOT Diameter 2.0 cm LV Mass (2D Cubed) 216.64 g 67.00-162.00 LV Mass Index (2D Cubed) 106 g/m2 43-95 Relative Wall Thickness (2D) 0.48 LV Fractional Shortening/Ejection Fraction 2D/MM LV Fractional Shortening (2D) 33 % 27-45 LV EF (2D Teicholz) 61 % 54-74 LV Diastolic Volume (4C MOD) 100 ml LV EF (4C MOD) 60 % LV Diastolic Volume (2C MOD) 79 ml LV EF (2C MOD) 53 % LV Diastolic Volume (BP MOD) 89 ml 46-106 LV Diastolic Volume Index (BP MOD) 43 ml/m2 29-61 LV Systolic Volume (BP MOD) 38 ml 14-42 LV Systolic Volume Index (BP MOD) 19 ml/m2 8-24 LV EF (BP MOD) 57 % 54-74 LV Diastolic Length (4C) 7.3 cm LV Systolic Length (4C) 5.8 cm LV Stroke Volume (4C MOD) 60 ml Atria Name Value Normal LA Dimensions LA Volume (4C A-L) 45 ml LA Volume (BP A-L) 62 ml RA Dimensions RA Area (4C) 13.7 cm2 <=18.0 Report Signatures
--- NOTE | ~2024-03-18 | US_ITS ---
EXAMINATION: US renal BI DATE: 03/18/2024 12:16 INDICATION: Acute renal insufficiency TECHNIQUE: Multiple ultrasound grayscale images of the kidneys were obtained. COMPARISON: None. FINDINGS: The right kidney measures 12.7 x 6.4 x 5.6 cm. The left kidney measures 9.0 x 4.7 x 4.9 cm. There is asymmetric moderate cortical atrophy at the left kidney relative to the right. The kidneys demonstrat e normal echogenicity. 4.0 cm anechoic cyst at the upper pole of the right kidney and 4.1 cm anechoic cyst at the lower pole of the left kidney.. There is no hydronephrosis in either kidney. No stones identified. The bladder is is not visualized likely decompressed with a Ferreira catheter reportedly in place. IMPRESSION: 1. Moderate diffuse cortical atrophy at the left kidney. No hydronephrosis. 2. Bilateral renal cysts. Reviewed, dictated and finalized at location B. [place] STOCKER
--- NOTE | ~2024-03-18 | XR_ITS ---
EXAMINATION: XR retrograde pyelogram BI DATE: 03/21/2024 13:34 INDICATION: Hematuria. Bladder mass. TECHNIQUE: 138 intraoperative fluoroscopic views of the abdomen and pelvis were obtained. I was not p resent. Fluoroscopy exposure time was 25 seconds. COMPARISON: CT abdomen and pelvis 03/17/2024, ultrasound 03/18/2024 FINDINGS: The bilateral retrograde pyelograms are normal. IMPRESSION: 1. Normal bilateral retrograde pyelograms. Reviewed, dictated and finalized at location A. L [employer]ING [employer]PERATOR
--- NOTE | 2024-03-18 00:30 | ADMGEN ---
This patient, Malia Selby, was admitted to IMU Room 205-02. Patient/family oriented to hospital policies and general routines including ID bracelet, bed and alarms, visiting hours, pain management, procedures, bathroom and other care routines, personal items, smoking policy, room service/diet, and visiting hours. Information on how to activate the Rapid Response Team has been discussed. Patient/Family are encouraged to report perceived risks to care and to ask questions if they do not understand what they are told or what they should do.
--- NOTE | 2024-03-18 02:44 | ECG_ITS ---
Test Date: 2024-03-18 05:28:24 Measurements Intervals [place] Rate: 65 P: 56 TX: 131 QRS: 11 QRSD: 101 T: 13 QT: 414 QTc: 430 Interpretive Statements SINUS RHYTHM LEFT VENTRICULAR HYPERTROPHY BASELINE ARTIFACT- I, II, III, AVR, AVL, AVF, V2 BORDERLINE ECG Compared to ECG 03/17/2024 15:50:32 NO SIGNIFICANT CHANGE Electronically Signed On 03-18-2024 07:03:30 AUTOMOTIVE INTERNET SALES CONSULTANT by Stanley Lo D.O.
[2024-03-18 03:57] LABS: Basophils Percent Auto 0.1 % (0.2-1.2); Eosinophils Percent Auto 0.1 % (0-4.4); Hematocrit 36.4 % (37.0-47.0); Hemoglobin 12.7 g/dL (12.0-15.0); Immature Granulocyte Absolute 0.48 K/mm3 (0.00-0.031); Immature Granulocyte Percent A 1.8 % (0-0.5); Lymphocytes Absolute Auto 1.07 K/mm3 (0.9-3.2); Lymphocytes Percent Auto 4.1 % (18.3-44.2); Mean Corpuscular HGB Conc 34.9 g/dl (32-36); Mean Corpuscular Hemoglobin 30.2 pg (26-34); Mean Corpuscular Volume 86.7 fl (80-100); Mean Platelet Volume 10.2 fl (7.4-10.4); Monocytes Absolute Auto 1.8 K/mm3 (0.1-0.6); Monocytes Percent Auto 6.6 % (2.6-8.5); Neutrophils Percent Auto 87.3 % (45.5-73.1); Platelet Count Result 230 k/mm3 (150-375); Red Cell Distribution Width 14.1 % (11.5-14.5); White Blood Count 26.4 K/mm3 (4.5-10.0)
[2024-03-18 04:09] LABS: INR 1.6; Prothrombin Time 19.4 Seconds (11.1-14.7)
[2024-03-18 04:18] LABS: Anion Gap 17 mmol/L (4-12); Blood Urea Nitrogen 99 mg/dL (7-17); Calcium 8.6 mg/dL (8.4-10.2); Carbon Dioxide 18 mmol/L (22-30); Chloride 88 mmol/L (98-107); Glucose 61 mg/dL (65-110); Magnesium 2.1 mg/dL (1.6-2.3); Phosphorus 5.9 mg/dL (2.5-4.5); Potassium 4.3 mmol/L (3.4-5.0); Sodium 123 mmol/L (137-145)
[2024-03-18 04:25] LABS: Estimated CRCL calculation 8 ml/min; Estimated Glomerular Filt Rate 7
[2024-03-18 04:37] LABS: Glucose Point of Care 57 mg/dl (65-105)
[2024-03-18 04:38] LABS: Creatinine Urine 68.7 mg/dL
[2024-03-18 04:39] LABS: Sodium Urine Random 31 meq/L
[2024-03-18] MEDS: SODIUM CHLORIDE 0.9% IV 1,000 ML 75 ML IV CONT ×2 (05:00→21:04)
[2024-03-18] MEDS: AZITHROMYCIN 500 MG/NS 250 ML 500 MG/250 ML BAG 250 MG IVPB (05:00)
[2024-03-18 06:02] LABS: Glucose Point of Care 85 mg/dl (65-105)
[2024-03-18 06:02] LABS: Glucose Point of Care 71 mg/dl (65-105)
--- NOTE | 2024-03-18 06:35 | P.CONUR_ITS ---
Assessment and Plan Assessment and plan (1) Acute renal failure: Code(s): N17.9 - Acute kidney failure, unspecified Status: Acute (2) Urinary tract infection: Code(s): N39.0 - Urinary tract infection, site not specified Status: Acute (3) Bladder mass: Code(s): N32.89 - Other specified disorders of bladder Status: Acute Assessment and Plan: * MATTHEW without upper tract obstruction * Acute UTI - on Ceftriaxone pending culture * Cysto. once infection treated - later this week while admitted if logistically possible * If bladder mass, will need to stop Xarelto prior to resection Urology Consult Note HPI Date Seen: 03/18/24 Requesting Physician: Kennedy Sierra MD Primary Care Provider: UNKNOWN,DOCTOR Consult Narrative Narrative: Malia Selby is a 83 year old female, previously unknown to our practice and without known significant urological history, transferred from [facility] where she presented with a several-day history of generalized weakness and acute onset of slurring of her speech. Evaluation in the emergency department there showed signs of urinary tract infection and acute kidney injury. CT scan showed some mild left renal atrophy without other upper urinary tract pathology. There does appear to be a possible mass in the left posterior lateral bladder w all. Patient does report intermittent mild irritable voiding symptoms but denies a history of recurrent urinary tract infection or gross hematuria. Review of Systems Review of Systems: All systems reviewed & are unremarkable except as noted in HPI and below PMFSH Past Medical History Medical History DVT (deep venous thrombosis) HTN (hypertension) Hyperlipidemia Osteoarthritis knees Overweight Pulmonary embolism Surgical History Surgical History History of appendectomy 2002 Hx of hysterectomy 2003 Family History Family History Father Hypertension Family history of arthritis Other Family history of malignant neoplasm Social History Social History Smoking status: Never smoker Alcohol intake: never Substance use: never Substance use type: does not use Do You Feel Safe in your Home?: Yes Lack of Transportation: No Lack of Food: Never True Current Housing: I Have Housing Concerned About Future Housing: No Difficulty Paying Gas/Electric Bills: No Difficulty Paying for Meds: No Currently Unemployed: No Education: High School Diploma/GED Difficulty w/ Childcare or Family Care: No Spiritual care concerns: No Meds Home Medications and Allergies Home Medications Medication Instructions Recorded Confirmed Type acetaminophen 650 mg 650 mg PO DAILY PRN Pain 08/06/19 03/18/24 History tablet,extended release (Arthritis Pain Relief (acetaminophen) ER) loratadine 5 mg-pseudoephedrine ER 1 tablet PO DAILY PRN Allergic 08/06/19 03/18/24 History 120 mg tablet,extended Symptoms release,12hr (Claritin-D 12 Hour) lsnsytze-ljqy-knsx 8 mg-folic 400 1 tablet PO DAILY 08/06/19 03/18/24 History mcg-K 50 mcg-lutein 300 mcg tablet (Multivitamin Women 50 Plus) rivaroxaban 20 mg tablet (Xarelto) 20 mg PO QPM 08/06/19 03/18/24 History sodium chloride 5 % eye ointment 1 applic EACH EYE HS 02/03/21 03/18/24 History (Romi 128) ascorbic acid (vitamin C) 500 mg 500 mg PO DAILY 11/13/23 03/18/24 History capsule omega 3-vbg-hwv-fish oil 300 1 cap PO DAILY 11/13/23 03/18/24 History mg-1,000 mg capsule (Fish Oil) vitamin E (dl, acetate) 450 mg 400 mg PO DAILY 11/13/23 03/18/24 History (1,000 unit) capsule atenolol 50 mg tablet 50 mg PO BID 03/17/24 03/18/24 History chlorthalidone 25 mg tablet 25 mg PO DAILY 03/17/24 03/18/24 History sodium chloride 5 % eye drops 1 drp EACH EYE TID 03/18/24 03/18/24 History vit C-vit U-hpltpk-jeehouiu capsule 1 cap PO DAILY 03/18/24 03/18/24 History Allergies Allergy/AdvReac Type Severity Reaction Status Date / Time diclofenac [Arthrotec 50] Allergy Intermediate Unknown Verified 03/17/24 15:11 Vzevqtf-VSI-OlU Reductase Allergy Intermediate Unknown Verified 03/17/24 15:11 Inhibitor [Uuynvfz-Gak-Vsz Reductase Inhibitor] Vital Signs Vital Signs - 24 hr 03/18/24 00:41 03/18/24 00:45 03/18/24 04:00 Temperature 98.2 F Pulse Rate 61 Respiratory Rate 18 Blood Pressure 151/44 H Pulse Oximetry 96 Oxygen Delivery Room Air Room Air 03/18/24 02:00 03/18/24 04:46 Temperature 98 F Pulse Rate 60 62 Respiratory Rate 18 Blood Pressure 130/56 L Pulse Oximetry 98 Oxygen Delivery Exam Const: General: no acute distress Resp: Effort & Inspection: normal respiratory effort GI: Inspection: non-distended GI Palp: No abdominal tenderness and No Guarding due to palpation present (GI) Auscultation: normal bowel sounds Results Labs 03/18/24 03:45 03/18/24 03:45 Labs: Short CBC 03/18/24 Range/Units 03:45 WBC 26.4 H (4.5-10.0) K/mm3 Hgb 12.7 (12.0-15.0) g/dL Hct 36.4 L (37.0-47.0) % Plt Count 230 (150-375) k/mm3 [facility] 03/18/24 03:45 Sodium 123 L Potassium 4.3 Chloride 88 L Carbon Dioxide 18 L BUN 99 H D Creatinine 5.50 H Glucose 61 L Calcium 8.6
--- NOTE | 2024-03-18 07:29 | P.HP_ITS ---
H&P: HPI History of Present Illness Date/Time: 03/18/24 07:29 Chief Complaint: weakness Narrative: Malia is an 83F with a PMH of Hypercoagulable state with Hx PE and left LE DVT which is managed with Periodic phlebotomy and Xarelto,thrombophilia, HTN, HLD that came to the ED with weakness for 5 days. She reports that she has gradually been getting weaker since then but came in today after a son thought she was slurring her speech on the phone. She denies headache, N/V, diarrhea, chest pain, abdominal pain and dyspnea. Transferred from [facility] where she presented with a several-day history of generalized weakness and acute onset of slurring of her speech. Evaluation in the emergency department there showed signs of urinary tract infection and acute kidney injury. CT scan showed some mild left renal atrophy without other upper urinary tract pathology. There does appear to be a possible mass in the left posterior lateral bladder wall. Patient does report intermittent mild irritable voiding symptoms but denies a history of recurrent urinary tract infection or gross hematuria. Pertinent Labs on admission : WBC 26.4, Na 123, AG 17, Cr 5.50 ( Baseline 1.30),GFR 7 UA : Blood 3, LE positive, Nitrates neg, WBC >75 Abd/Pelvis CT : Left renal atrophy. No hydronephrosis.Cystitis versus urinary bladder wall thickening from incomplete distention.Small volume pelvic ascites. 1.5 cm bladder mass, recommend urology referral. Patient is seen by for hypercoagulable state with history of bilateral pulmonary embolism and left lower extremity DVT which was diagnosed in March 2016. Currently patient is on Xarelto 20 mg p.o. q.d. which was last taken yesterday. Upon the diagnosis of bladder mass we discussed with her son given who is the medical POA and wants to evaluate the mass. We are currently holding Xarelto and starting heparin drip. Urology today evaluated the patient will consider cystoscopy once the infection is treated. Patient is currently on ceftriaxone and urine culture is pending. Pending Nephrology evaluation for MATTHEW and Hypo Na. Review of Systems Review of Systems: All systems reviewed & are unremarkable except as noted in HPI and below PMFSH Past Medical History Medical History DVT (deep venous thrombosis) HTN (hypertension) Hyperlipidemia Osteoarthritis knees Overweight Pulmonary embolism Surgical History Surgical History History of appendectomy 2002 Hx of hysterectomy 2002 Family History Family History Father Hypertension Family history of arthritis Other Family history of malignant neoplasm Social History Social History Smoking status: Never smoker Alcohol intake: never Substance use: never Substance use type: does not use Do You Feel Safe in your Home?: Yes Lack of Transportation: No Lack of Food: Never True Current Housing: I Have Housing Concerned About Future Housing: No Difficulty Paying Gas/Electric Bills: No Difficulty Paying for Meds: No Currently Unemployed: No Education: High School Diploma/GED Difficulty w/ Childcare or Family Care: No Spiritual care concerns: No Meds Home Medications and Allergies Home Medications Medication Instructions Recorded Confirmed Type acetaminophen 650 mg 650 mg PO DAILY PRN Pain 08/06/19 03/18/24 History tablet,extended release (Arthritis Pain Relief (acetaminophen) ER) loratadine 5 mg-pseudoephedrine ER 1 tablet PO DAILY PRN Allergic 08/06/19 03/18/24 History 120 mg tablet,extended Symptoms release,12hr (Claritin-D 12 Hour) wqtcqmhf-gymj-xukd 8 mg-folic 400 1 tablet PO DAILY 08/06/19 03/18/24 History mcg-K 50 mcg-lutein 300 mcg tablet (Multivitamin Women 50 Plus) rivaroxaban 20 mg tablet (Xarelto) 20 mg PO QPM 08/06/19 03/18/24 History sodium chloride 5 % eye ointment 1 applic EACH EYE HS 02/03/21 03/18/24 History (Romi 128) ascorbic acid (vitamin C) 500 mg 500 mg PO DAILY 11/13/23 03/18/24 History capsule omega 4-hlo-qla-fish oil 300 1 cap PO DAILY 11/13/23 03/18/24 History mg-1,000 mg capsule (Fish Oil) vitamin E (dl, acetate) 450 mg 400 mg PO DAILY 11/13/23 03/18/24 History (1,000 unit) capsule atenolol 50 mg tablet 50 mg PO BID 03/17/24 03/18/24 History chlorthalidone 25 mg tablet 25 mg PO DAILY 03/17/24 03/18/24 History sodium chloride 5 % eye drops 1 drp EACH EYE TID 03/18/24 03/18/24 History vit C-vit Y-dumkbn-fgrzxnja capsule 1 cap PO DAILY 03/18/24 03/18/24 History Allergies Allergy/AdvReac Type Severity Reaction Status Date / Time diclofenac [Arthrotec 50] Allergy Intermediate Unknown Verified 03/17/24 15:11 Rqkuvyn-WMS-YvW Reductase Allergy Intermediate Unknown Verified 03/17/24 15:11 Inhibitor [Sybzfmm-Kbe-Ffh Reductase Inhibitor] Vital Signs Vital Signs - 24 hr 03/18/24 00:41 03/18/24 00:45 03/18/24 04:00 Temperature 98.2 F Pulse Rate 61 Respiratory Rate 18 Blood Pressure 151/44 H Pulse Oximetry 96 Oxygen Delivery Room Air Room Air 03/18/24 02:00 03/18/24 04:46 Temperature 98 F Pulse Rate 60 62 Respiratory Rate 18 Blood Pressure 130/56 L Pulse Oximetry 98 Oxygen Delivery Exam Const: General: no acute distress Resp: Effort & Inspection: normal respiratory effort GI: Inspection: non-distended Auscultation: normal bowel sounds H&P: Results Labs Labs: Short CBC 03/18/24 Range/Units 03:45 WBC 26.4 H (4.5-10.0) K/mm3 Hgb 12.7 (12.0-15.0) g/dL Hct 36.4 L (37.0-47.0) % Plt Count 230 (150-375) k/mm3 [facility] 03/18/24 03:45 Sodium 123 L Potassium 4.3 Chloride 88 L Carbon Dioxide 18 L BUN 99 H D Creatinine 5.50 H Glucose 61 L Calcium 8.6 Assessment and Plan Assessment and plan (1) Acute renal failure: Code(s): N17.9 - Acute kidney failure, unspecified Status: Acute (2) Urinary tract infection: Code(s): N39.0 - Urinary tract infection, site not specified Status: Acute (3) Bladder mass: Code(s): N32.89 - Other specified disorders of bladder Status: Acute Plan #Bladder mass # MATTHEW #Urosepsis -Abd/Pelvis CT : Left renal atrophy. No hydronephrosis.Cystitis versus urinary bladder wall thickening from incomplete distention.Small volume pelvic ascites.1.5 cm bladder mass, recommend urology referral. -Urology evaluated possible cystoscopy -Cr 5.50 ( Baseline 1.30),GFR 7 -On Ceftriaxone 2 gm -Monitor UO -Hold Nephrotoxic drugs -Chlorthalidone on hold -Strict I and O -Electrolyte replenishment -US renal -Oncology consulted -Nephrology consulted -Xarelto on hold due to possible cystoscopy -On heparin drip # Hypo Na -Na 123 -Chlorthalidone on hold -Dehydration contribution -NaCl @ 75ml/hr -fractional excretion of urea -CPK , serology and immunofixation. -Nephrology following #UTI/Urosepsis -UA reviewed -UC Pending -On Ceftriaxone #Hypercoagulable state -Heparin drip -Xarelto on hold due to possible cystoscopy -Not required a phlebotomy in the last year. -Follows up with Hospitalist [facility] Advance Care Plan I have confirmed that the patient's Advanced Care Plan is present, code status is documented, or surrogate decision maker is listed in patient medical record.: Yes Medication Reconciliation I have utilized all available resources to obtain, update and review the patients current medications (includes all prescriptions, OTC, herbals, cannabis, and nutritional supplements).: Yes
[2024-03-18 08:18] LABS: Glucose Point of Care 89 mg/dl (65-105)
[2024-03-18] MEDS: atenoloL 50 MG TABLET PO ×2 (08:41→17:07)
[2024-03-18 11:34] LABS: Glucose Point of Care 71 mg/dl (65-105)
--- NOTE | 2024-03-18 11:38 | P.CONNP_ITS ---
Assessment and Plan Assessment and plan (1) Acute renal failure: Code(s): N17.9 - Acute kidney failure, unspecified Status: Acute Assessment and Plan: the patient has acute kidney injury. The patient has not been taking any nonsteroidal anti-inflammatory agents. She has not been on any new medications. She has received no contrast. She has not been eating very well and has been on a diuretic. the patient's urine electrolytes do not look pre renal but she was on a diuretic. Will get a fractional excretion of urea. She looks somewhat dry to me as she has no swelling in her mucous membranes are dry. I do agree with giving her some IV fluids. The patient has a UTI and a very high white count in the blood stream and so could have urosepsis. This could of course cause renal failure. Patient has a bladder mass but no obstruction so I do not think this is playing a role in her renal disease. other causes include glomerulonephritis, interstitial nephritis, infiltrative diseases, and rhabdomyolysis but I think these are all less likely. At this point will get a renal ultrasound to look more into the left renal atrophy. Will check a CPK , serology and immunofixation. Will continue antibiotics and IV fluids. (2) Chronic kidney disease, stage 3b: Code(s): N18.32 - Chronic kidney disease, stage 3b Status: Acute Assessment and Plan: the patient has chronic kidney disease. 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 She also has hypertension which could contribute to this as well. in addition she has hyperlipidemia and so could have some vascular disease in the kidneys. Will see what the above tests show. (3) HTN (hypertension): Code(s): I10 - Essential (primary) hypertension Status: Acute Assessment and Plan: Her blood pressure seems under pretty good control ranging from 100-150. It could be better, but with the acute kidney injury I do not want to over treat this in the short term. (4) Hyperlipidemia: Code(s): E78.5 - Hyperlipidemia, unspecified Status: Acute Assessment and Plan: the patient is on pravastatin (5) Bladder mass: Code(s): N32.89 - Other specified disorders of bladder Status: Acute Assessment and Plan: Dr. Garcia has seen the patient (6) Urinary tract infection: Code(s): N39.0 - Urinary tract infection, site not specified Status: Acute Assessment and Plan: the patient has pyuria. Cultures are pending and she is on antibiotics. (7) Erythrocytosis: Code(s): D75.1 - Secondary polycythemia Status: Acute Assessment and Plan: This is not been an issue lately. Possibly the elevated creatinine has calmed this down. She has not required a phlebotomy in the last year. (8) Hyponatremia: Code(s): E87.1 - Hypo-osmolality and hyponatremia Status: Acute Assessment and Plan: The sodium level is low. It was normal until February of 2023 and since then has been mildly low. For this admission the sodium is very low. The patient is on chlorthalidone which can do this. The patient has a bladder mass and could be cancer which can contribute to a low sodium as well. dehydration can also make the sodium low. Other causes of hyponatremia include: Medications: Chlorthalidone is the only 1 that would do this in her situation. Abnormally functioning thyroid or adrenal glands. We will check these. [employer] disorders. She had a CT of the brain which was negative. Pulmonary disorders. She does have a little bit of atelectasis /c onsolidation. This would be a diagnosis of exclusion. Cancer. Of course the patient has bladder cancer and a strong family history of cancer. At this point will get serum and urine osmolality, TSH and cortisol, urine sodium, SPEP. Will start a fluid restriction. Will continue IV fluids for now and watch the sodium closely long discussion with the patient, son, and [id number]-vt-lpl. History of Present Illness Reason for Consult Consult date: 03/18/24 Chief Complaint Chief complaint: Acute renal failure History of Present Illness Narrative: Malia reese is a very pleasant 83-year-old lady who has multiple medical problems including history of DVT, pulmonary embolism on Xarelto, hypertension, hyperlipidemia, osteoarthritis, cancer of the pancreatic head, and mildly elevated creatinine through late 2022 and early 2023. a few months ago the patient went to the doctor. She was found have blood in the urine. She was treated with an antibiotic. She was post to follow-up on this but never did. She does say however that she is had blood in her urine periodically, generally about once a month since then. the patient says that for the last week she has had poor appetite but drinking lots of fluid. She has been taking her medications. She has grown gradually weaker. a 1st she got along with a walker but more recently, She was barely able to get out of bed. Her son called her yesterday and could barely hear her she was so weak so her other son went over and arranged for her to come to the e mergency room. She was sent to the hospital in [place] and evaluated. Her creatinine was very high at around 5. The patient was transferred to [facility] for further care. The patient was found to have pyuria and so has been placed on antibiotics. She has been given IV fluids as well. She feels about the same today. She denies any foamy urine kidney stones or bladder infections other than above. She denies any chest pain. She has no appetite but no nausea vomiting or diarrhea or abdominal pain. She has had some shortness of breath. She denies any skin rash. she has osteoarthritis. She has been having more pain in the low back lately. She also has had some right shoulder pain. The patient has Fuch's Dystrophy. Review of Systems Constitutional: Constitutional: Reports no additional constitutional complaints Eyes: Eyes: Reports no additional eye complaints ENT: Reports system reviewed and no additional complaints, except as documented Cardiovascular: Cardiovascular: Reports no additional cardiovascular complaints Respiratory: Respiratory: Reports no additional respiratory complaints Gastrointestinal: Gastrointestinal: Reports no additional gastrointestinal complaints Genitourinary: Genitourinary: Reports no additional female genitourinary complaints Musculoskeletal: Musculoskeletal: Reports no additional musculoskeletal complaints Integumentary/Breasts: Skin/Breast: Reports system reviewed and no additional complaints, except as docu Neurologic: Reports system reviewed and no additional complaints, except as documented Psychiatric: Psychiatric: Reports no additional psychiatric complaints Endocrine: Endocrine: Reports no additional endocrine complaints [facility] Past Medical History Medical History DVT (deep venous thrombosis) HTN (hypertension) Hyperlipidemia Osteoarthritis knees Overweight Pulmonary embolism Surgical History Surgical History History of appendectomy 2002 Hx of hysterectomy 2002 Family History Family History Father Hypertension Family history of arthritis Other Family history of malignant neoplasm Social History Social History Smoking status: Never smoker Alcohol intake: never Substance use: never Substance use type: does not use Do You Feel Safe in your Home?: Yes Lack of Transportation: No Lack of Food: Never True Current Housing: I Have Housing Concerned About Future Housing: No Difficulty Paying Gas/Electric Bills: No Difficulty Paying for Meds: No Currently Unemployed: No Education: High School Diploma/GED Difficulty w/ Childcare or Family Care: No Spiritual care concerns: No Meds Home Medications and Allergies Home Medications Medication Instructions Recorded Confirmed Type acetaminophen 650 mg 650 mg PO DAILY PRN Pain 08/06/19 03/18/24 History tablet,extended release (Arthritis Pain Relief (acetaminophen) ER) loratadine 5 mg-pseudoephedrine ER 1 tablet PO DAILY PRN Allergic 08/06/19 03/18/24 History 120 mg tablet,extended Symptoms release,12hr (Claritin-D 12 Hour) cmmrbdgg-cixu-craq 8 mg-folic 400 1 tablet PO DAILY 08/06/19 03/18/24 History mcg-K 50 mcg-lutein 300 mcg tablet (Multivitamin Women 50 Plus) rivaroxaban 20 mg tablet (Xarelto) 20 mg PO QPM 08/06/19 03/18/24 History sodium chloride 5 % eye ointment 1 applic EACH EYE HS 02/03/21 03/18/24 History (Romi 128) ascorbic acid (vitamin C) 500 mg 500 mg PO DAILY 11/13/23 03/18/24 History capsule omega 1-vub-kcd-fish oil 300 1 cap PO DAILY 11/13/23 03/18/24 History mg-1,000 mg capsule (Fish Oil) vitamin E (dl, acetate) 450 mg 400 mg PO DAILY 11/13/23 03/18/24 History (1,000 unit) capsule atenolol 50 mg tablet 50 mg PO BID 03/17/24 03/18/24 History chlorthalidone 25 mg tablet 25 mg PO DAILY 03/17/24 03/18/24 History sodium chloride 5 % eye drops 1 drp EACH EYE TID 03/18/24 03/18/24 History vit C-vit R-zyxexk-mwkjmgsz capsule 1 cap PO DAILY 03/18/24 03/18/24 History Allergies Allergy/AdvReac Type Severity Reaction Status Date / Time diclofenac [Arthrotec 50] Allergy Intermediate Unknown Verified 03/17/24 15:11 Lxkgxgq-OKN-FuR Reductase Allergy Intermediate Unknown Verified 03/17/24 15:11 Inhibitor [Quuehad-Gai-Tuj Reductase Inhibitor] Vital Signs Vital Signs - 24 hr 03/18/24 00:41 03/18/24 00:45 03/18/24 04:00 Temperature 98.2 F Pulse Rate 61 Respiratory Rate 18 Blood Pressure 151/44 H Pulse Oximetry 96 Oxygen Delivery Room Air Room Air 03/18/24 02:00 03/18/24 04:46 03/18/24 07:33 Temperature 98 F 98.1 F Pulse Rate 60 62 65 Respiratory Rate 18 20 Blood Pressure 130/56 L 142/55 H Pulse Oximetry 98 97 Oxygen Delivery 03/18/24 04:00 03/18/24 06:00 03/18/24 08:41 Temperature Pulse Rate 64 71 64 Respiratory Rate Blood Pressure Pulse Oximetry Oxygen Delivery 03/18/24 08:00 03/18/24 08:00 03/18/24 10:00 Temperature Pulse Rate 67 69 Respiratory Rate Blood Pressure Pulse Oximetry Oxygen Delivery Room Air Exam Narrative: Exam Narrative: Well developed well-nourished female, generally weak but in no acute distress Skin is warm and dry without rash Head normocephalic atraumatic Eyes normal sclerae and conjunctivae Mouth normal lips teeth and gums . Mucous membranes are dry Neck no nodes no thyromegaly no carotid bruits Axillae no nodes Back no CVA tenderness Lungs symmetric and clear to auscultation and percussion Heart regular rate and rhythm without rub or gallop Abdomen bowel sounds positive soft nontender, no HSM, masses, or bruits. Extremities no cyanosis, clubbing, or edema Pulses 2+ equal in radial arteries Psychological not anxious or depressed Neuro alert and oriented x3 motor 5/5 cranial nerves 2-12 intact reflexes 2+ and equal in the biceps and patellar tendons cerebellar normal rapid alternating movements Results Lab Results 03/18/24 03:45 03/18/24 03:45 Lab results: Most recent lab results Calcium 8.6 mg/dL (8.4-10.2) 03/18/24 03:45 Phosphorus 5.9 mg/dL (2.5-4.5) H 03/18/24 03:45 Magnesium 2.1 mg/dL (1.6-2.3) 03/18/24 03:45 Urine Creatinine 68.7 mg/dL 03/18/24 04:24
[2024-03-18 11:45] LABS: Hematocrit 34.1 % (37.0-47.0); Hemoglobin 11.7 g/dL (12.0-15.0); Mean Corpuscular HGB Conc 34.3 g/dl (32-36); Mean Corpuscular Hemoglobin 29.9 pg (26-34); Mean Corpuscular Volume 87.2 fl (80-100); Mean Platelet Volume 10.3 fl (7.4-10.4); Platelet Count Result 212 k/mm3 (150-375); Red Blood Count 3.91 M/mm3 (4.2-5.4); Red Cell Distribution Width 14.2 % (11.5-14.5)
[2024-03-18] MEDS: HEPARIN SODIUM 5,000 UNITS/ML VIAL 5500 UNITS IV PUSH (11:46)
[2024-03-18] MEDS: HEPARIN SOD/D5W 100 UNITS/ML 25,000 UNITS/250 ML BAG 13 UNITS IV CONT (11:46)
[2024-03-18 12:00] LABS: Prothrombin Time 23.4 Seconds (11.1-14.7)
[2024-03-18 12:01] LABS: Partial Thromboplastin Time 31.1 Seconds (22.3-36.8)
[2024-03-18 12:30] LABS: Band Neutrophils Percent 5 % (0-6); Basophils Percent Manual 0 % (0-1); Eosinophils Percent Manual 0 % (0-4); Lymphocytes Absolute Manual 0.22 K/mm3 (1.1-4.5); Lymphocytes Percent Manual 1 % (18-44); Monocytes Percent Manual 5 % (3-9); Neutrophils Absolute Manual 20.68 K/mm3 (1.7-7.2); Neutrophils Percent Manual 89 % (46-73); Platelet Estimate Adequate (Adequate); Total Cells Counted 100
[2024-03-18 12:34] LABS: Burr Cells 1+; Platelet Clumps Present; Schistocytes None Seen
[2024-03-18 12:38] LABS: Erythrocyte Sedimentation Rate 57 mm/hr (0-20)
[2024-03-18 13:36] LABS: Creatine Kinase 201 U/L (30-135)
[2024-03-18 13:40] LABS: Complement C3 131 mg/dL (88-165)
[2024-03-18 13:42] LABS: Urea Random Urine 359 MG/DL
[2024-03-18 13:43] LABS: Sodium Urine Random 29 meq/L
[2024-03-18 13:45] LABS: Creatinine Urine 62.9 mg/dL; Total Protein Urine Random 88 mg/dL
[2024-03-18 13:59] LABS: Parathyroid Intact 69.6 pg/mL (14.5-75.2)
--- NOTE | 2024-03-18 15:46 | P.CONONC_ITS ---
Recommendations Patient has been noticing hematuria since November 2023. This has been intermittent so she did not pay much attention to it. She is now admitted for generalized weakness, urinary tract infection. CT scan done outside hospital showed some mild left renal atrophy without other upper urinary tract pathology. There appeared to be a possible mass in the left posterior lateral bladder wall. Patient hematuria since November 2023 and reported it to her primary care physician then. Urologist Dr. Garcia has seen the patient and plan to do cystoscopy after the UTI resolved. Patient is on ceftriaxone and azithromycin. Creatinine 5.5 on admission and nephrology on board. Oncology is consulted for possibility of bladder cancer. Patient has seen Dr. Arnold for hx of thrombosis and is on xarelto. Currently xarelto is switched to heparin drip for possibility of cystoscopy. Patient should see Dr. Arnold as an outpatient to discuss the results of this biopsy. Impression This is a 83-year-old female with possible bladder mass PMF - Date/Time Seen 03/18/24 15:46 - History of Present Illness Malia Selby is a 83 year old female, transferred from [facility] where she presented with a several-day history of generalized weakness and acute onset of slurring of her speech. Evaluation in the emergency department there showed signs of urinary tract infection and acute kidney injury. CT scan done outside hospital showed some mild left renal atrophy without other upper urinary tract pathology. There appeared to be a possible mass in the left posterior lateral bladder wall. Patient hematuria since November 2023 and reported it to her primary care physician then. Urologist Dr. Garcia has seen the patient and plan to do cystoscopy after the UTI resolved. Patient is on ceftriaxone. Creatinine 5.5 on admission and nephrology on board. Oncology is consulted for possibility of bladder cancer. Patient has seen Dr. Arnold for hx of thrombosis and is on xarelto. Currently xarelto is switched to heparin drip for possibility of cystoscopy. - Medical History Medical History (Last Reviewed 03/18/24 @ 11:38 by Noel Manzo MD) DVT (deep venous thrombosis) HTN (hypertension) Hyperlipidemia Osteoarthritis knees Overweight Pulmonary embolism - Surgical History Surgical History (Last Reviewed 03/18/24 @ 11:38 by Noel Manzo MD) History of appendectomy 2002 Hx of hysterectomy 2002 - Family History Family History (Last Reviewed 03/18/24 @ 11:38 by Noel Manzo MD) Father Hypertension Family history of arthritis Other Family history of malignant neoplasm - Social History Social History (Last Reviewed 03/18/24 @ 11:38 by Noel Manzo MD) Alcohol Use: Alcohol intake: never Substance Use: Substance use: never Substance use type: does not use Others: Spiritual care concerns: No Smoking Status: Smoking status: Never smoker Social Determinants of Health: Do You Feel Safe in your Home?: Yes Has the Lack of Transportation Kept You From Medical Appointments or From Getting Medications?: No Within the Past 12 Months, Were You Worried Whether Your Food Would Run Out Before You Got Money to Buy More?: Never True What is Your Housing Situation Today?: I Have Housing Are You Worried That in the Next 2 Months, You May Not Have Your Own Housing to Live In?: No Do You Have Trouble Paying Your Heating Or Electricity Bill?: No Do You Have Trouble Paying For Medicines?: No Are You Currently Unemployed and Looking for Work?: No Highest Level of Education Completed: High School Diploma/GED Do You Have Trouble With Childcare or the Care of a Family Member?: No - Medications Active Medications Generic Name Dose Route Start Last Admin Trade Name Freq PRN Reason Stop Dose Admin Acetaminophen 650 mg 03/18/24 02:38 Acetaminophen 325 Mg Tablet PO DAILY PRN Pain Al Hydrox/Mg Hydrox/Simethicone 30 ml 03/18/24 02:38 Mag Hydrox/Al Hydrox/Simeth 30 Ml Udc PO Q6H PRN Indigestion Atenolol 50 mg 03/18/24 09:00 03/18/24 08:41 Atenolol 50 Mg Tablet PO 50 mg BID LINDA Administration Dextrose 12.5 gm 03/18/24 04:36 Dextrose 50% 25 Gm/50 Ml Syringe IV PUSH PRN PRN Hypoglycemia Protocol Glucagon 1 mg 03/18/24 04:36 Glucagon For Inj 1 Mg Vial IM PRN PRN Hypoglycemia Protocol Glucose 15 gm 03/18/24 04:36 Glucose Oral Gel 15 Gm Of Glucse In 37.5 Gm Tube PO PRN PRN Hypoglycemia Protocol Heparin Sodium (Porcine) 5,500 units 03/18/24 11:27 Heparin Sodium 5,000 Units/Ml Vial IV PUSH PRN PRN aPTT less than 55 seconds Heparin Sodium (Porcine) 3,000 units 03/18/24 11:27 Heparin Sodium 5,000 Units/Ml Vial IV PUSH PRN PRN aPTT 55 - 70 seconds Sodium Chloride 1,000 mls @ 75 mls/hr 03/18/24 02:40 03/18/24 05:00 Normal Saline Iv IV CONT 75 mls/hr .[id number] LINDA Administration Azithromycin 500 mg in 250 mls @ 250 mls/hr 03/18/24 04:00 03/18/24 06:00 Zithromax IVPB Infused Q24H [facility] Infusion Ceftriaxone Sodium 2 gm in 100 mls @ 200 mls/hr 03/18/24 20:00 Rocephin 2 Gm/Ns 100 Ml IVPB Q24H LINDA Dextrose 1,000 mls @ 100 mls/hr 03/18/24 04:36 Dextrose 5% 1,000 Ml IVPB PRN PRN Hypoglycemia Protocol Heparin Sodium/Dextrose 25,000 units in 250 mls @ 13 mls/hr 03/18/24 11:30 03/18/24 11:46 Heparin Sodium/D5w 100 Units/Ml IV CONT 1,300 units/hr .[id number] LINDA 13 mls/hr Administration Protocol 1,300 UNITS/HR Ondansetron HCl 4 mg 03/18/24 02:41 Ondansetron Inj 4 Mg/2 Ml Vial IV PUSH Q6H PRN Nausea And Vomiting Perflutren Lipid Microsphere 0 ml 03/18/24 02:38 Perflutren Lipid Microspheres 1.5 Ml Vial Diluted To 10 Ml Total Volume IV PUSH 03/21/24 02:40 ONCE PRN adequate visualization Protocol Polyethylene Glycol 17 gm 03/18/24 02:38 Polyethylene Glycol 3350 17 Gm Powd.Pack PO QAM PRN Constipation Rivaroxaban 20 mg 03/18/24 17:00 Rivaroxaban 20 Mg Tablet PO DAILY@1700 [facility] - Allergies Allergies Allergy/AdvReac Type Severity Reaction Status Date / Time diclofenac [Arthrotec 50] Allergy Intermediate Unknown Verified 03/17/24 15:11 [id number] Reductase Allergy Intermediate Unknown Verified 03/17/24 15:11 Inhibitor [Ffababg-Xel-Yyg Reductase Inhibitor] Review of Systems - Constitutional Reports fatigue, Reports malaise - Eyes Comments: Normal - ENT Comments: Normal - Cardiovascular Comments: Denies chest pain or shortness of breath. - Respiratory Comments: No cough or phlegm production - Gastrointestinal Comments: Patient does not report any abdominal pain or pelvic pain. No nausea vomiting diarrhea - Neurologic Reports system reviewed and no additional complaints, except as documented Exam - Vital Signs Vital Signs - 24 hr 03/18/24 00:41 03/18/24 00:45 03/18/24 04:00 Temperature 36.8 C Pulse Rate 61 Respiratory Rate 18 Blood Pressure 151/44 H Pulse Oximetry 96 Oxygen Delivery Room Air Room Air 03/18/24 02:00 03/18/24 04:46 03/18/24 07:33 Temperature 36.6 C 36.7 C Pulse Rate 60 62 65 Respiratory Rate 18 20 Blood Pressure 130/56 L 142/55 H Pulse Oximetry 98 97 Oxygen Delivery 03/18/24 04:00 03/18/24 06:00 03/18/24 08:41 Temperature Pulse Rate 64 71 64 Respiratory Rate Blood Pressure Pulse Oximetry Oxygen Delivery 03/18/24 08:00 03/18/24 08:00 03/18/24 10:00 Temperature Pulse Rate 67 69 Respiratory Rate Blood Pressure Pulse Oximetry Oxygen Delivery Room Air 03/18/24 11:49 03/18/24 12:00 03/18/24 12:00 Temperature 36.3 C L Pulse Rate 64 64 Respiratory Rate Blood Pressure 146/55 H Pulse Oximetry 100 Oxygen Delivery Room Air 03/18/24 14:00 03/18/24 15:32 Temperature 36.8 C Pulse Rate 68 64 Respiratory Rate 20 Blood Pressure 153/62 H Pulse Oximetry 96 Oxygen Delivery - Exam HEENT: EOMI, PERRLA Neck: supple Lungs: clear to auscultation Heart: no murmurs, gallops, or rubs, regular rhythm, regular rate Abdomen: abdomen soft, non-distended, normal bowel sounds Neurological: normal gait, normal speech, sensation intact Psychological: mental status NL, mood NL - Lab Results Laboratory Last Values WBC 22.0 K/mm3 (4.5-10.0) H 03/18/24 11:41 RBC 3.91 M/mm3 (4.2-5.4) L 03/18/24 11:41 Hgb 11.7 g/dL (12.0-15.0) L 03/18/24 11:41 Hct 34.1 % (37.0-47.0) L 03/18/24 11:41 MCV 87.2 fl (80-100) 03/18/24 11:41 MCH 29.9 pg (26-34) 03/18/24 11:41 MCHC 34.3 g/dl (32-36) 03/18/24 11:41 RDW 14.2 % (11.5-14.5) 03/18/24 11:41 Plt Count 212 k/mm3 (150-375) 03/18/24 11:41 MPV 10.3 fl (7.4-10.4) 03/18/24 11:41 Immature Gran % (Auto) Not Reportable 03/18/24 11:41 Neut % (Auto) Not Reportable 03/18/24 11:41 Lymph % (Auto) Not Reportable 03/18/24 11:41 [place] % (Auto) Not Reportable 03/18/24 11:41 Eos % (Auto) Not Reportable 03/18/24 11:41 Baso % (Auto) Not Reportable 03/18/24 11:41 Lymph # (Auto) Not Reportable 03/18/24 11:41 Clark # (Auto) Not Reportable 03/18/24 11:41 Eos # (Auto) Not Reportable 03/18/24 11:41 Baso # (Auto) Not Reportable 03/18/24 11:41 Abs Immat Gran (auto) Not Reportable 03/18/24 11:41 Absolute Neuts (auto) Not Reportable 03/18/24 11:41 Absolute Nucleated RBC Not Reportable 03/18/24 11:41 Total Counted 100 03/18/24 11:41 Neutrophils % (Manual) 89 % (46-73) H 03/18/24 11:41 Band Neutrophils % 5 % (0-6) 03/18/24 11:41 Lymphocytes % (Manual) 1 % (18-44) L 03/18/24 11:41 Monocytes % (Manual) 5 % (3-9) 03/18/24 11:41 Eosinophils % (Manual) 0 % (0-4) 03/18/24 11:41 Basophils % (Manual) 0 % (0-1) 03/18/24 11:41 Nucleated RBC % Not Reportable 03/18/24 11:41 Abs Neuts (Manual) 20.68 K/mm3 (1.7-7.2) H 03/18/24 11:41 Abs Lymphs (Manual) 0.22 K/mm3 (1.1-4.5) L 03/18/24 11:41 Abs Monocytes (Manual) 1.10 K/mm3 (0.1-0.90) H 03/18/24 11:41 Absolute Eos (Manual) 0.00 K/mm3 (0.02-0.50) L 03/18/24 11:41 Abs Basophils (Manual) 0.00 K/mm3 (0.0-0.1) 03/18/24 11:41 Platelet Estimate Adequate (Adequate) 03/18/24 11:41 Clumped Platelets Present 03/18/24 11:41 [place] Cells 1+ 03/18/24 11:41 Schistocytes None seen 03/18/24 11:41 ESR 57 mm/hr (0-20) H 03/18/24 11:37 PT 23.4 Seconds (11.1-14.7) H D 03/18/24 11:41 INR 2.0 03/18/24 11:41 APTT 31.1 Seconds (22.3-36.8) 03/18/24 11:41 Sodium 123 mmol/L (137-145) L 03/18/24 03:45 Potassium 4.3 mmol/L (3.4-5.0) 03/18/24 03:45 Chloride 88 mmol/L (98-107) L 03/18/24 03:45 Carbon Dioxide 18 mmol/L (22-30) L 03/18/24 03:45 Anion Gap 17 mmol/L (4-12) H 03/18/24 03:45 BUN 99 mg/dL (7-17) H D 03/18/24 03:45 Creatinine 5.50 mg/dL (0.7-1.0) H 03/18/24 03:45 Estim Creat Clear Calc 8 ml/min 03/18/24 03:45 Estimated GFR 7 (59-) L 03/18/24 03:45 Glucose 61 mg/dL (65-110) L 03/18/24 03:45 POC Capillary Glucose 71 mg/dl (65-105) 03/18/24 11:20 Calcium 8.6 mg/dL (8.4-10.2) 03/18/24 03:45 Phosphorus 5.9 mg/dL (2.5-4.5) H 03/18/24 03:45 Magnesium 2.1 mg/dL (1.6-2.3) 03/18/24 03:45 Total Creatine Kinase 201 U/L (30-135) H 03/18/24 03:38 TSH (Reflex) 0.900 uIU/mL (0.465-4.68) 03/18/24 11:41 PTH Intact 69.6 pg/mL (14.5-75.2) 03/18/24 03:38 Random Cortisol 24.30 ug/dL 03/18/24 03:38 U Random Total Protein 88 mg/dL 03/18/24 13:01 Ur Random Sodium 29 meq/L 03/18/24 13:01 Ur Random Urea 359 MG/DL 03/18/24 13:01 Urine Creatinine 62.9 mg/dL 03/18/24 13:01 Protein/Creat Ratio 2 1.40 mg/mg (0-0.20) H 03/18/24 13:01 Complement C3 131 mg/dL (88-165) 03/18/24 03:38 Complement C4 21.6 mg/dL (14.0-44.0) 03/18/24 03:38
[2024-03-18 16:06] LABS: Glucose Point of Care 106 mg/dl (65-105)
[2024-03-18 17:59] LABS: Partial Thromboplastin Time 56.2 Seconds (22.3-36.8)
[2024-03-18] MEDS: HEPARIN SODIUM 5,000 UNITS/ML VIAL 3000 UNITS IV PUSH (18:11)
[2024-03-18 19:50] LABS: Sodium 123 mmol/L (137-145)
[2024-03-18 20:07] LABS: Glucose Point of Care 107 mg/dl (65-105)
[2024-03-18] MEDS: cefTRIAXone 2 GM/NS 100 ML 2 GM/100 ML BAG IVPB (21:05)
[2024-03-18] MEDS: AZITHROMYCIN 250 MG TABLET 500 MG PO (21:05)
[2024-03-19] VITALS (19 sets, daily range): BP systolic 92–170; BP diastolic 56–74; PULSE 58–65; RESP 18–20; TEMP 36.3–36.8; O2SAT 94–100
[2024-03-19 00:22] LABS: Glucose Point of Care 107 mg/dl (65-105)
[2024-03-19 00:40] LABS: Partial Thromboplastin Time 66.1 Seconds (22.3-36.8)
[2024-03-19] MEDS: HEPARIN SODIUM 5,000 UNITS/ML VIAL 3000 UNITS IV PUSH (00:46)
[2024-03-19] MEDS: HEPARIN SOD/D5W 100 UNITS/ML 25,000 UNITS/250 ML BAG 15 UNITS IV CONT (05:45)
--- NOTE | 2024-03-19 06:24 | P.PNUR_ITS ---
Progress Note: A&P Assessment and Plan (1) Urinary tract infection: Code(s): N39.0 - Urinary tract infection, site not specified Status: Acute (2) Hematuria: Code(s): R31.9 - Hematuria, unspecified Status: Acute (3) Bladder mass: Code(s): N32.89 - Other specified disorders of bladder Status: Acute Assessment and Plan: * Appreciate heme/onc input. * Xarelto on hold. Will tentatively plan cysto., possible TURBT either . or Mon. -> depending on how she's doing with UTI, MATTHEW, etc. Subjective Subjective Date/Time Seen: 03/19/24 06:24 Interval history: Comfortable, no complaints Review of Systems Review of Systems: All systems reviewed & are unremarkable except as noted in HPI and below Exam Const: General: no acute distress Resp: Effort & Inspection: normal respiratory effort GI: Inspection: non-distended GI Palp: No abdominal tenderness and No Guarding due to palpation present (GI) Auscultation: normal bowel sounds Objective Data Vital Signs Vital Signs: Vital Signs - 24 hr 03/18/24 07:33 03/18/24 08:41 03/18/24 08:00 Temperature 98.1 F Pulse Rate 65 64 67 Respiratory Rate 20 Blood Pressure 142/55 H Pulse Oximetry 97 Oxygen Delivery 03/18/24 08:00 03/18/24 10:00 03/18/24 11:49 Temperature 97.3 F L Pulse Rate 69 64 Respiratory Rate Blood Pressure 146/55 H Pulse Oximetry 100 Oxygen Delivery Room Air 03/18/24 12:00 03/18/24 12:00 03/18/24 14:00 Temperature Pulse Rate 64 68 Respiratory Rate Blood Pressure Pulse Oximetry Oxygen Delivery Room Air 03/18/24 15:32 03/18/24 16:00 03/18/24 16:00 Temperature 98.2 F Pulse Rate 64 66 Respiratory Rate 20 Blood Pressure 153/62 H Pulse Oximetry 96 Oxygen Delivery Room Air 03/18/24 17:07 03/18/24 18:00 03/18/24 20:28 Temperature 98.2 F Pulse Rate 65 62 63 Respiratory Rate 20 Blood Pressure 152/71 H Pulse Oximetry 93 Oxygen Delivery 03/18/24 20:00 03/18/24 23:42 03/19/24 00:00 Temperature 98.1 F Pulse Rate 63 Respiratory Rate 20 Blood Pressure 133/49 L Pulse Oximetry 98 Oxygen Delivery Room Air Room Air 03/18/24 20:00 03/18/24 22:00 03/19/24 00:00 Temperature Pulse Rate 64 69 64 Respiratory Rate Blood Pressure Pulse Oximetry Oxygen Delivery 03/19/24 02:00 03/19/24 03:39 03/19/24 05:04 Temperature 97.6 F Pulse Rate 63 63 Respiratory Rate 20 Blood Pressure 138/56 L Pulse Oximetry 94 Oxygen Delivery Room Air 03/19/24 04:00 03/19/24 06:00 Temperature Pulse Rate 63 62 Respiratory Rate Blood Pressure Pulse Oximetry Oxygen Delivery Intake/Output Intake/Output: Intake & Output 03/16/24 03/17/24 03/18/24 03/19/24 23:59 23:59 23:59 23:59 Intake Total 2413.4 926.6 Output Total 950 800 Balance 1463.4 126.6 Meds/Results Medications: Active Medications Generic Name Dose Route Start Last Admin Trade Name Ortizq PRN Reason Stop Dose Admin Acetaminophen 650 mg 03/18/24 02:38 Acetaminophen 325 Mg Tablet PO DAILY PRN Pain Al Hydrox/Mg Hydrox/Simethicone 30 ml 03/18/24 02:38 Mag Hydrox/Al Hydrox/Simeth 30 Ml Udc PO Q6H PRN Indigestion Atenolol 50 mg 03/18/24 09:00 03/18/24 17:07 Atenolol 50 Mg Tablet PO 50 mg BID LINDA Administration Azithromycin 500 mg 03/18/24 21:00 03/18/24 21:05 Azithromycin 250 Mg Tablet PO 03/21/24 21:01 500 mg DAILY@2100 LINDA Administration Dextrose 12.5 gm 03/18/24 04:36 Dextrose 50% 25 Gm/50 Ml Syringe IV PUSH PRN PRN Hypoglycemia Protocol Glucagon 1 mg 03/18/24 04:36 Glucagon For Inj 1 Mg Vial IM PRN PRN Hypoglycemia Protocol Glucose 15 gm 03/18/24 04:36 Glucose Oral Gel 15 Gm Of Glucse In 37.5 Gm Tube PO PRN PRN Hypoglycemia Protocol Heparin Sodium (Porcine) 5,500 units 03/18/24 11:27 Heparin Sodium 5,000 Units/Ml Vial IV PUSH PRN PRN aPTT less than 55 seconds Heparin Sodium (Porcine) 3,000 units 03/18/24 11:27 03/19/24 00:46 Heparin Sodium 5,000 Units/Ml Vial IV PUSH 3,000 units PRN PRN Administration aPTT 55 - 70 seconds Sodium Chloride 1,000 mls @ 75 mls/hr 03/18/24 02:40 03/18/24 21:04 Normal Saline Iv IV CONT 75 mls/hr .[id number] LINDA Administration Ceftriaxone Sodium 2 gm in 100 mls @ 200 mls/hr 03/18/24 20:00 03/18/24 21:35 Rocephin 2 Gm/Ns 100 Ml IVPB Infused Q24H LINDA Infusion Dextrose 1,000 mls @ 100 mls/hr 03/18/24 04:36 Dextrose 5% 1,000 Ml IVPB PRN PRN Hypoglycemia Protocol Heparin Sodium/Dextrose 25,000 units in 250 mls @ 15 mls/hr 03/18/24 11:30 03/19/24 05:45 Heparin Sodium/D5w 100 Units/Ml IV CONT 1,500 units/hr .[id number] LINDA 15 mls/hr Administration Protocol 1,500 UNITS/HR Ondansetron HCl 4 mg 03/18/24 02:41 Ondansetron Inj 4 Mg/2 Ml Vial IV PUSH Q6H PRN Nausea And Vomiting Perflutren Lipid Microsphere 0 ml 03/18/24 02:38 Perflutren Lipid Microspheres 1.5 Ml Vial Diluted To 10 Ml Total Volume IV PUSH 03/21/24 02:40 ONCE PRN adequate visualization Protocol Polyethylene Glycol 17 gm 03/18/24 02:38 Polyethylene Glycol 3350 17 Gm Powd.Pack PO QAM PRN Constipation Rivaroxaban 20 mg 03/18/24 17:00 Rivaroxaban 20 Mg Tablet PO DAILY@1700 [facility] Radiology Results: ITS Impressions Renal Ultrasound 03/18/24 12:20 IMPRESSION: 1. Moderate diffuse cortical atrophy at the left kidney. No hydronephrosis. 2. Bilateral renal cysts. Labs Labs: Laboratory Results - last 24 hr 03/18/24 03/18/24 03/18/24 03:38 07:32 11:20 WBC RBC Hgb Hct MCV MCH MCHC RDW Plt Count MPV Immature Gran % (Auto) Neut % (Auto) Lymph % (Auto) [place] % (Auto) Eos % (Auto) Baso % (Auto) Lymph # (Auto) [place] # (Auto) Eos # (Auto) Baso # (Auto) Abs Immat Gran (auto) Absolute Neuts (auto) Absolute Nucleated RBC Total Counted Neutrophils % (Manual) Band Neutrophils % Lymphocytes % (Manual) Monocytes % (Manual) Eosinophils % (Manual) Basophils % (Manual) Nucleated RBC % Abs Neuts (Manual) Abs Lymphs (Manual) Abs Monocytes (Manual) Absolute Eos (Manual) Abs Basophils (Manual) Platelet Estimate Clumped Platelets [place] Cells Schistocytes ESR PT INR APTT Sodium POC Capillary Glucose 89 71 Total Creatine Kinase 201 H TSH (Reflex) PTH Intact 69.6 Random Cortisol 24.30 U Random Total Protein Ur Random Sodium Ur Random Urea Urine Creatinine Protein/Creat Ratio 2 Complement C3 131 Complement C4 21.6 03/18/24 03/18/24 03/18/24 11:37 11:41 13:01 WBC 22.0 H RBC 3.91 L Hgb 11.7 L Hct 34.1 L MCV 87.2 MCH 29.9 MCHC 34.3 RDW 14.2 Plt Count 212 MPV 10.3 Immature Gran % (Auto) Not Reportable Neut % (Auto) Not Reportable Lymph % (Auto) Not Reportable [place] % (Auto) Not Reportable Eos % (Auto) Not Reportable Baso % (Auto) Not Reportable Lymph # (Auto) Not Reportable [place] # (Auto) Not Reportable Eos # (Auto) Not Reportable Baso # (Auto) Not Reportable Abs Immat Gran (auto) Not Reportable Absolute Neuts (auto) Not Reportable Absolute Nucleated RBC Not Reportable Total Counted 100 Neutrophils % (Manual) 89 H Band Neutrophils % 5 Lymphocytes % (Manual) 1 L Monocytes % (Manual) 5 Eosinophils % (Manual) 0 Basophils % (Manual) 0 Nucleated RBC % Not Reportable Abs Neuts (Manual) 20.68 H Abs Lymphs (Manual) 0.22 L Abs Monocytes (Manual) 1.10 H Absolute Eos (Manual) 0.00 L Abs Basophils (Manual) 0.00 Platelet Estimate Adequate Clumped Platelets Present [place] Cells 1+ Schistocytes None seen ESR 57 H PT 23.4 H D INR 2.0 APTT 31.1 Sodium POC Capillary Glucose Total Creatine Kinase TSH (Reflex) 0.900 PTH Intact Random Cortisol U Random Total Protein 88 Ur Random Sodium 29 Ur Random Urea 359 Urine Creatinine 62.9 Protein/Creat Ratio 2 1.40 H Complement C3 Complement C4 03/18/24 03/18/24 03/18/24 15:31 17:37 19:40 WBC RBC Hgb Hct MCV MCH MCHC RDW Plt Count MPV Immature Gran % (Auto) Neut % (Auto) Lymph % (Auto) [place] % (Auto) Eos % (Auto) Baso % (Auto) Lymph # (Auto) [place] # (Auto) Eos # (Auto) Baso # (Auto) Abs Immat Gran (auto) Absolute Neuts (auto) Absolute Nucleated RBC Total Counted Neutrophils % (Manual) Band Neutrophils % Lymphocytes % (Manual) Monocytes % (Manual) Eosinophils % (Manual) Basophils % (Manual) Nucleated RBC % Abs Neuts (Manual) Abs Lymphs (Manual) Abs Monocytes (Manual) Absolute Eos (Manual) Abs Basophils (Manual) Platelet Estimate Clumped Platelets [place] Cells Schistocytes ESR PT INR APTT 56.2 H Sodium 123 L POC Capillary Glucose 106 H Total Creatine Kinase TSH (Reflex) PTH Intact Random Cortisol U Random Total Protein Ur Random Sodium Ur Random Urea Urine Creatinine Protein/Creat Ratio 2 Complement C3 Complement C4 03/18/24 03/19/24 03/19/24 20:03 00:15 00:20 WBC RBC Hgb Hct MCV MCH MCHC RDW Plt Count MPV Immature Gran % (Auto) Neut % (Auto) Lymph % (Auto) [place] % (Auto) Eos % (Auto) Baso % (Auto) Lymph # (Auto) [place] # (Auto) Eos # (Auto) Baso # (Auto) Abs Immat Gran (auto) Absolute Neuts (auto) Absolute Nucleated RBC Total Counted Neutrophils % (Manual) Band Neutrophils % Lymphocytes % (Manual) Monocytes % (Manual) Eosinophils % (Manual) Basophils % (Manual) Nucleated RBC % Abs Neuts (Manual) Abs Lymphs (Manual) Abs Monocytes (Manual) Absolute Eos (Manual) Abs Basophils (Manual) Platelet Estimate Clumped Platelets [place] Cells Schistocytes ESR PT INR APTT 66.1 H Sodium POC Capillary Glucose 107 H 107 H Total Creatine Kinase TSH (Reflex) PTH Intact Random Cortisol U Random Total Protein Ur Random Sodium Ur Random Urea Urine Creatinine Protein/Creat Ratio 2 Complement C3 Complement C4
[2024-03-19 07:15] LABS: Partial Thromboplastin Time 73.4 Seconds (22.3-36.8)
[2024-03-19 07:20] LABS: Alanine Aminotransferase 20 U/L (6-35); Albumin Level 2.6 g/dL (3.5-5.1); Alkaline Phosphatase 217 U/L (38-126); Anion Gap 13 mmol/L (4-12); Aspartate Amino Transferase 31 U/L (14-36); Basophils Absolute Auto 0.1 K/mm3 (0.0-0.1); Basophils Percent Auto 0.7 % (0.2-1.2); Bilirubin,Total 0.7 mg/dL (0.2-1.3); Blood Urea Nitrogen 99 mg/dL (7-17); Calcium 7.6 mg/dL (8.4-10.2); Carbon Dioxide 17 mmol/L (22-30); Chloride 95 mmol/L (98-107); Eosinophils Absolute Auto 0.1 K/mm3 (0-0.3); Eosinophils Percent Auto 0.3 % (0-4.4); Estimated CRCL calculation 9 ml/min; Estimated Glomerular Filt Rate 8; Glucose 102 mg/dL (65-110); Hematocrit 32.3 % (37.0-47.0); Hemoglobin 11.2 g/dL (12.0-15.0); Immature Granulocyte Absolute 0.53 K/mm3 (0.00-0.031); Immature Granulocyte Percent A 2.9 % (0-0.5); Lymphocytes Absolute Auto 1.05 K/mm3 (0.9-3.2); Lymphocytes Percent Auto 5.7 % (18.3-44.2); Mean Corpuscular HGB Conc 34.7 g/dl (32-36); Mean Corpuscular Hemoglobin 29.7 pg (26-34); Mean Corpuscular Volume 85.7 fl (80-100); Mean Platelet Volume 10.2 fl (7.4-10.4); Monocytes Absolute Auto 1.5 K/mm3 (0.1-0.6); Monocytes Percent Auto 7.9 % (2.6-8.5); Neutrophils Absolute Auto 15.1 K/mm3 (1.3-6.7); Neutrophils Percent Auto 82.5 % (45.5-73.1); Phosphorus 5.5 mg/dL (2.5-4.5); Platelet Count Result 242 k/mm3 (150-375); Potassium 3.8 mmol/L (3.4-5.0); Red Blood Count 3.77 M/mm3 (4.2-5.4); Red Cell Distribution Width 14.1 % (11.5-14.5); Sodium 125 mmol/L (137-145); White Blood Count 18.3 K/mm3 (4.5-10.0)
[2024-03-19 07:25] LABS: Glucose Point of Care 111 mg/dl (65-105)
[2024-03-19 07:53] LABS: Protein, Total 5.3 g/dL (6.1-8.1)
[2024-03-19] MEDS: atenoloL 50 MG TABLET PO ×2 (09:16→18:07)
[2024-03-19] MEDS: SODIUM CHLORIDE 0.9% IV 1,000 ML 75 ML IV CONT ×2 (09:24→21:02)
[2024-03-19 11:53] LABS: Glucose Point of Care 153 mg/dl (65-105)
--- NOTE | 2024-03-19 12:27 | PM.PNNEP ---
Progress Note: A&P Assessment and Plan (1) Acute renal failure: Code(s): N17.9 - Acute kidney failure, unspecified Status: Inactive Assessment and Plan: the patient has acute kidney injury. Fractional excretion of urea is pre renal. Renal ultrasound shows moderate diffuse cortical atrophy of the left kidney. There are cysts in both kidneys. CT showed the bladder mass Sed rate is 57. C3 and C4 are okay. Other serology plus immunofixation are pending CK is mildly high at 2 001 but this would not bother the kidneys. the creatinine has come down a little bit with hydration. most likely the patient has acute kidney injury from pre renal azotemia because she was not eating. The patient has a UTI and a very high white count in the blood stream and so could have urosepsis. This could of course cause renal failure. Will continue hydration and antibiotics. Check labs tomorrow (2) Chronic kidney disease, stage 3b: Code(s): N18.32 - Chronic kidney disease, stage 3b Status: Acute Assessment and Plan: the patient has chronic kidney disease. 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 She also has hypertension which could contribute to this as well. in addition she has hyperlipidemia and so could have some vascular disease in the kidneys. Will see what the above tests show. (3) HTN (hypertension): Code(s): I10 - Essential (primary) hypertension Status: Acute Assessment and Plan: Her blood pressure is a bit high. Systolic is ranging from 130-170 she is getting no antihypertensives. Will start low-dose amlodipine (4) Hyperlipidemia: Code(s): E78.5 - Hyperlipidemia, unspecified Status: Acute Assessment and Plan: the patient is on pravastatin (5) Bladder mass: Code(s): N32.89 - Other specified disorders of bladder Status: Acute Assessment and Plan: Dr. Garcia and Oncology have seen the patient (6) Urinary tract infection: Code(s): N39.0 - Urinary tract infection, site not specified Status: Acute Assessment and Plan: the patient has pyuria. urine culture was negative. Blood culture showed Gram-negative bacilli 1/2 bottles. Possible contaminant? Repeat cultures from yesterday are pending. (7) Erythrocytosis: Code(s): D75.1 - Secondary polycythemia Status: Acute Assessment and Plan: This is not been an issue lately. Possibly the elevated creatinine has calmed this down. She has not required a phlebotomy in the last year. (8) Hyponatremia: Code(s): E87.1 - Hypo-osmolality and hyponatremia Status: Acute Assessment and Plan: The sodium level is low. It was normal until February of 2023 and since then has been mildly low. For this admission the sodium is very low. Urine sodium is a little low. Osmolalitis and SPEP are pending TSH and cortisol rule out thyroid and adrenal gland issues respectively. The patient was on chlorthalidone which can do this. The patient has a bladder mass and could be cancer which can contribute to a low sodium as well. dehydration can also make the sodium low. Other causes of hyponatremia include: Medications: Chlorthalidone is the only 1 that would do this in her situation. Abnormally functioning thyroid or adrenal glands. We will check these. 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 She had a CT of the brain which was negative. Pulmonary disorders. She does have a little bit of atelectasis /consolidation. This would be a diagnosis of exclusion. Cancer. Of course the patient has bladder cancer and a strong family history of cancer. At this point will continue to hydrate. I told patient to drink thirsty not if not. Repeat labs this afternoon Subjective Date/time seen: 03/19/24 12:27 Interval history: Malia is feeling about the same today. She is still weak. She is eating some. Review of Systems Cardiovascular: Cardiovascular: Reports no additional cardiovascular complaints Respiratory: Respiratory: Reports no additional respiratory complaints Gastrointestinal: Gastrointestinal: Reports no additional gastrointestinal complaints Genitourinary: Genitourinary: Reports no additional female genitourinary complaints Exam Narrative: WDWN in NAD skin no rash head ncat lungs clear cor reg no rub abd BS+ nontender and soft ext no edema. Objective Data Vital Signs Vital Signs: Vital Signs - 24 hr 03/18/24 14:00 03/18/24 15:32 03/18/24 16:00 Temperature 98.2 F Pulse Rate 68 64 66 Respiratory Rate 20 Blood Pressure 153/62 H Pulse Oximetry 96 Oxygen Delivery 03/18/24 16:00 03/18/24 17:07 03/18/24 18:00 Temperature Pulse Rate 65 62 Respiratory Rate Blood Pressure Pulse Oximetry Oxygen Delivery Room Air 03/18/24 20:28 03/18/24 20:00 03/18/24 23:42 Temperature 98.2 F 98.1 F Pulse Rate 63 63 Respiratory Rate 20 20 Blood Pressure 152/71 H 133/49 L Pulse Oximetry 93 98 Oxygen Delivery Room Air 03/19/24 00:00 03/18/24 20:00 03/18/24 22:00 Temperature Pulse Rate 64 69 Respiratory Rate Blood Pressure Pulse Oximetry Oxygen Delivery Room Air 03/19/24 00:00 03/19/24 02:00 03/19/24 03:39 Temperature Pulse Rate 64 63 Respiratory Rate Blood Pressure Pulse Oximetry Oxygen Delivery Room Air 03/19/24 05:04 03/19/24 04:00 03/19/24 06:00 Temperature 97.6 F Pulse Rate 63 63 62 Respiratory Rate 20 Blood Pressure 138/56 L Pulse Oximetry 94 Oxygen Delivery 03/19/24 07:20 03/19/24 09:16 03/19/24 12:02 Temperature 98.3 F 97.4 F L Pulse Rate 62 65 58 L Respiratory Rate 20 18 Blood Pressure 146/56 H 170/67 H Pulse Oximetry 95 96 Oxygen Delivery Intake/Output Intake/Output: Intake & Output 03/16/24 03/17/24 03/18/24 03/19/24 23:59 23:59 23:59 23:59 Intake Total 2413.4 2110.4 Output Total 950 800 Balance 1463.4 1310.4 Meds/Results Medications: Active Medications Generic Name Dose Route Start Last Admin Trade Name Freq PRN Reason Stop Dose Admin Acetaminophen 650 mg 03/18/24 02:38 Acetaminophen 325 Mg Tablet PO DAILY PRN Pain Al Hydrox/Mg Hydrox/Simethicone 30 ml 03/18/24 02:38 Mag Hydrox/Al Hydrox/Simeth 30 Ml Udc PO Q6H PRN Indigestion Atenolol 50 mg 03/18/24 09:00 03/19/24 09:16 Atenolol 50 Mg Tablet PO 50 mg BID LINDA Administration Azithromycin 500 mg 03/18/24 21:00 03/18/24 21:05 Azithromycin 250 Mg Tablet PO 03/21/24 21:01 500 mg DAILY@2100 LINDA Administration Dextrose 12.5 gm 03/18/24 04:36 Dextrose 50% 25 Gm/50 Ml Syringe IV PUSH PRN PRN Hypoglycemia Protocol Glucagon 1 mg 03/18/24 04:36 Glucagon For Inj 1 Mg Vial IM PRN PRN Hypoglycemia Protocol Glucose 15 gm 03/18/24 04:36 Glucose Oral Gel 15 Gm Of Glucse In 37.5 Gm Tube PO PRN PRN Hypoglycemia Protocol Heparin Sodium (Porcine) 5,500 units 03/18/24 11:27 Heparin Sodium 5,000 Units/Ml Vial IV PUSH PRN PRN aPTT less than 55 seconds Heparin Sodium (Porcine) 3,000 units 03/18/24 11:27 03/19/24 00:46 Heparin Sodium 5,000 Units/Ml Vial IV PUSH 3,000 units PRN PRN Administration aPTT 55 - 70 seconds Sodium Chloride 1,000 mls @ 75 mls/hr 03/18/24 02:40 03/19/24 09:24 Normal Saline Iv IV CONT 75 mls/hr .[id number] LINDA Administration Ceftriaxone Sodium 2 gm in 100 mls @ 200 mls/hr 03/18/24 20:00 03/18/24 21:35 Rocephin 2 Gm/Ns 100 Ml IVPB Infused Q24H LINDA Infusion Dextrose 1,000 mls @ 100 mls/hr 03/18/24 04:36 Dextrose 5% 1,000 Ml IVPB PRN PRN Hypoglycemia Protocol Heparin Sodium/Dextrose 25,000 units in 250 mls @ 15 mls/hr 03/18/24 11:30 03/19/24 07:00 Heparin Sodium/D5w 100 Units/Ml IV CONT 1,500 units/hr .[id number] LINDA 15 mls/hr Titration Protocol 1,500 UNITS/HR Ondansetron HCl 4 mg 03/18/24 02:41 Ondansetron Inj 4 Mg/2 Ml Vial IV PUSH Q6H PRN Nausea And Vomiting Perflutren Lipid Microsphere 0 ml 03/18/24 02:38 Perflutren Lipid Microspheres 1.5 Ml Vial Diluted To 10 Ml Total Volume IV PUSH 03/21/24 02:40 ONCE PRN adequate visualization Protocol Polyethylene Glycol 17 gm 03/18/24 02:38 Polyethylene Glycol 3350 17 Gm Powd.Pack PO QAM PRN Constipation Rivaroxaban 20 mg 03/18/24 17:00 Rivaroxaban 20 Mg Tablet PO DAILY@1700 LINDA Radiology Results: ITS Impressions Renal Ultrasound 03/18/24 12:20 IMPRESSION: 1. Moderate diffuse cortical atrophy at the left kidney. No hydronephrosis. 2. Bilateral renal cysts. Labs Labs: Laboratory Results - last 24 hr 03/18/24 03/18/24 03/18/24 03:38 11:37 11:41 WBC 22.0 H RBC 3.91 L Hgb 11.7 L Hct 34.1 L MCV 87.2 MCH 29.9 MCHC 34.3 RDW 14.2 Plt Count 212 MPV 10.3 Immature Gran % (Auto) Not Reportable Neut % (Auto) Not Reportable Lymph % (Auto) Not Reportable [place] % (Auto) Not Reportable Eos % (Auto) Not Reportable Baso % (Auto) Not Reportable Lymph # (Auto) Not Reportable [place] # (Auto) Not Reportable Eos # (Auto) Not Reportable Baso # (Auto) Not Reportable Abs Immat Gran (auto) Not Reportable Absolute Neuts (auto) Not Reportable Absolute Nucleated RBC Not Reportable Total Counted 100 Neutrophils % (Manual) 89 H Band Neutrophils % 5 Lymphocytes % (Manual) 1 L Monocytes % (Manual) 5 Eosinophils % (Manual) 0 Basophils % (Manual) 0 Nucleated RBC % Not Reportable Abs Neuts (Manual) 20.68 H Abs Lymphs (Manual) 0.22 L Abs Monocytes (Manual) 1.10 H Absolute Eos (Manual) 0.00 L Abs Basophils (Manual) 0.00 Platelet Estimate Adequate Clumped Platelets Present Roberts Cells 1+ Schistocytes None seen ESR 57 H APTT Sodium Potassium Chloride Carbon Dioxide Anion Gap BUN Creatinine Estim Creat Clear Calc Estimated GFR Glucose POC Capillary Glucose Calcium Phosphorus Total Bilirubin AST ALT Alkaline Phosphatase Total Creatine Kinase 201 H Total Protein Albumin TSH (Reflex) 0.900 PTH Intact 69.6 Random Cortisol 24.30 U Random Total Protein Ur Random Sodium Ur Random Urea Urine Creatinine Protein/Creat Ratio 2 Complement C3 131 Complement C4 21.6 03/18/24 03/18/24 03/18/24 13:01 15:31 17:37 WBC RBC Hgb Hct MCV MCH MCHC RDW Plt Count MPV Immature Gran % (Auto) Neut % (Auto) Lymph % (Auto) [place] % (Auto) Eos % (Auto) Baso % (Auto) Lymph # (Auto) [place] # (Auto) Eos # (Auto) Baso # (Auto) Abs Immat Gran (auto) Absolute Neuts (auto) Absolute Nucleated RBC Total Counted Neutrophils % (Manual) Band Neutrophils % Lymphocytes % (Manual) Monocytes % (Manual) Eosinophils % (Manual) Basophils % (Manual) Nucleated RBC % Abs Neuts (Manual) Abs Lymphs (Manual) Abs Monocytes (Manual) Absolute Eos (Manual) Abs Basophils (Manual) Platelet Estimate Clumped Platelets [place] Cells Schistocytes ESR APTT 56.2 H Sodium Potassium Chloride Carbon Dioxide Anion Gap BUN Creatinine Estim Creat Clear Calc Estimated GFR Glucose POC Capillary Glucose 106 H Calcium Phosphorus Total Bilirubin AST ALT Alkaline Phosphatase Total Creatine Kinase Total Protein 5.3 L Albumin TSH (Reflex) PTH Intact Random Cortisol U Random Total Protein 88 Ur Random Sodium 29 Ur Random Urea 359 Urine Creatinine 62.9 Protein/Creat Ratio 2 1.40 H Complement C3 Complement C4 03/18/24 03/18/24 03/19/24 19:40 20:03 00:15 WBC RBC Hgb Hct MCV MCH MCHC RDW Plt Count MPV Immature Gran % (Auto) Neut % (Auto) Lymph % (Auto) [place] % (Auto) Eos % (Auto) Baso % (Auto) Lymph # (Auto) [place] # (Auto) Eos # (Auto) Baso # (Auto) Abs Immat Gran (auto) Absolute Neuts (auto) Absolute Nucleated RBC Total Counted Neutrophils % (Manual) Band Neutrophils % Lymphocytes % (Manual) Monocytes % (Manual) Eosinophils % (Manual) Basophils % (Manual) Nucleated RBC % Abs Neuts (Manual) Abs Lymphs (Manual) Abs Monocytes (Manual) Absolute Eos (Manual) Abs Basophils (Manual) Platelet Estimate Clumped Platelets Roberts Cells Schistocytes ESR APTT 66.1 H Sodium 123 L Potassium Chloride Carbon Dioxide Anion Gap BUN Creatinine Estim Creat Clear Calc Estimated GFR Glucose POC Capillary Glucose 107 H Calcium Phosphorus Total Bilirubin AST ALT Alkaline Phosphatase Total Creatine Kinase Total Protein Albumin TSH (Reflex) PTH Intact Random Cortisol U Random Total Protein Ur Random Sodium Ur Random Urea Urine Creatinine Protein/Creat Ratio 2 Complement C3 Complement C4 03/19/24 03/19/24 03/19/24 00:20 06:56 07:22 WBC 18.3 H RBC 3.77 L Hgb 11.2 L Hct 32.3 L MCV 85.7 MCH 29.7 MCHC 34.7 RDW 14.1 Plt Count 242 MPV 10.2 Immature Gran % (Auto) 2.9 H Neut % (Auto) 82.5 H Lymph % (Auto) 5.7 L [place] % (Auto) 7.9 Eos % (Auto) 0.3 Baso % (Auto) 0.7 Lymph # (Auto) 1.05 [place] # (Auto) 1.5 H Eos # (Auto) 0.1 Baso # (Auto) 0.1 Abs Immat Gran (auto) 0.53 H Absolute Neuts (auto) 15.1 H Absolute Nucleated RBC 0.000 Total Counted Neutrophils % (Manual) Band Neutrophils % Lymphocytes % (Manual) Monocytes % (Manual) Eosinophils % (Manual) Basophils % (Manual) Nucleated RBC % 0.0 Abs Neuts (Manual) Abs Lymphs (Manual) Abs Monocytes (Manual) Absolute Eos (Manual) Abs Basophils (Manual) Platelet Estimate Clumped Platelets [place] Cells Schistocytes ESR APTT 73.4 H Sodium 125 L Potassium 3.8 Chloride 95 L Carbon Dioxide 17 L Anion Gap 13 H BUN 99 H Creatinine 4.90 H Estim Creat Clear Calc 9 Estimated GFR 8 L Glucose 102 POC Capillary Glucose 107 H 111 H Calcium 7.6 L Phosphorus 5.5 H Total Bilirubin 0.7 AST 31 ALT 20 Alkaline Phosphatase 217 H Total Creatine Kinase Total Protein 6.0 L Albumin 2.6 L TSH (Reflex) PTH Intact Random Cortisol U Random Total Protein Ur Random Sodium Ur Random Urea Urine Creatinine Protein/Creat Ratio 2 Complement C3 Complement C4 03/19/24 11:42 WBC RBC Hgb Hct MCV MCH MCHC RDW Plt Count MPV Immature Gran % (Auto) Neut % (Auto) Lymph % (Auto) [place] % (Auto) Eos % (Auto) Baso % (Auto) Lymph # (Auto) [place] # (Auto) Eos # (Auto) Baso # (Auto) Abs Immat Gran (auto) Absolute Neuts (auto) Absolute Nucleated RBC Total Counted Neutrophils % (Manual) Band Neutrophils % Lymphocytes % (Manual) Monocytes % (Manual) Eosinophils % (Manual) Basophils % (Manual) Nucleated RBC % Abs Neuts (Manual) Abs Lymphs (Manual) Abs Monocytes (Manual) Absolute Eos (Manual) Abs Basophils (Manual) Platelet Estimate Clumped Platelets Roberts Cells Schistocytes ESR APTT Sodium Potassium Chloride Carbon Dioxide Anion Gap BUN Creatinine Estim Creat Clear Calc Estimated GFR Glucose POC Capillary Glucose 153 H Calcium Phosphorus Total Bilirubin AST ALT Alkaline Phosphatase Total Creatine Kinase Total Protein Albumin TSH (Reflex) PTH Intact Random Cortisol U Random Total Protein Ur Random Sodium Ur Random Urea Urine Creatinine Protein/Creat Ratio 2 Complement C3 Complement C4
[2024-03-19] MEDS: amLODIPine BESYLATE 2.5 MG TABLET PO (13:14)
[2024-03-19 13:34] LABS: Partial Thromboplastin Time 53.4 Seconds (22.3-36.8)
[2024-03-19] MEDS: HEPARIN SODIUM 5,000 UNITS/ML VIAL 5500 UNITS IV PUSH (14:03)
--- NOTE | 2024-03-19 14:33 | PM.IMPN ---
Progress Note: A&P Assessment and Plan (1) Acute renal failure: Code(s): N17.9 - Acute kidney failure, unspecified Status: Inactive (2) Urinary tract infection: Code(s): N39.0 - Urinary tract infection, site not specified Status: Acute (3) Bladder mass: Code(s): N32.89 - Other specified disorders of bladder Status: Acute Plan # MATTHEW -Abd/Pelvis CT : Left renal atrophy. No hydronephrosis.Cystitis versus urinary bladder wall thickening from incomplete distention.Small volume pelvic ascites.1.5 cm bladder mass, recommend urology referral. -Urology evaluated possible cystoscopy -Cr 5.50 -->4.9( Baseline 1.30),GFR 7 BUN 99 -US renal showed diffuse cortical atrophy 24 hr urine for immunofixation -Hold Nephrotoxic drugs -Chlorthalidone on hold continue IVF and nephrology following Bladder mass Urology planning for Cystoscopy with TURP on Mon/ Oncology eval noted patient should continue follow ip with Dr Arnold on discharge # Hypo Na -Na 125, today -Chlorthalidone on hold -Dehydration contribution -NaCl @ 75ml/hr -fractional excretion of urea -CPK , serology and immunofixation. -Nephrology following #UTI/Urosepsis with bacteremia Blood culture positive for GNB continue [place] and monitor cultures #Hypercoagulable state -Heparin drip -Xarelto on hold due to possible cystoscopy -Not required a phlebotomy in the last year. -Follows up with DVT prophylaxis on Heparin infusion Subjective Date/time seen: 03/19/24 14:33 Interval history: Patient comfortable at bedside Nephrology doing 24 hours urine immunofixation Review of Systems Review of Systems: All systems reviewed & are unremarkable except as noted in HPI and below Exam Const: General: no acute distress Resp: Effort & Inspection: normal respiratory effort GI: Inspection: non-distended Auscultation: normal bowel sounds Objective Data Vital Signs Vital Signs: Vital Signs - 24 hr 03/18/24 15:32 03/18/24 16:00 03/18/24 16:00 Temperature 98.2 F Pulse Rate 64 66 Respiratory Rate 20 Blood Pressure 153/62 H Pulse Oximetry 96 Oxygen Delivery Room Air 03/18/24 17:07 03/18/24 18:00 03/18/24 20:28 Temperature 98.2 F Pulse Rate 65 62 63 Respiratory Rate 20 Blood Pressure 152/71 H Pulse Oximetry 93 Oxygen Delivery 03/18/24 20:00 03/18/24 23:42 03/19/24 00:00 Temperature 98.1 F Pulse Rate 63 Respiratory Rate 20 Blood Pressure 133/49 L Pulse Oximetry 98 Oxygen Delivery Room Air Room Air 03/18/24 20:00 03/18/24 22:00 03/19/24 00:00 Temperature Pulse Rate 64 69 64 Respiratory Rate Blood Pressure Pulse Oximetry Oxygen Delivery 03/19/24 02:00 03/19/24 03:39 03/19/24 05:04 Temperature 97.6 F Pulse Rate 63 63 Respiratory Rate 20 Blood Pressure 138/56 L Pulse Oximetry 94 Oxygen Delivery Room Air 03/19/24 04:00 03/19/24 06:00 03/19/24 07:20 Temperature 98.3 F Pulse Rate 63 62 62 Respiratory Rate 20 Blood Pressure 146/56 H Pulse Oximetry 95 Oxygen Delivery 03/19/24 09:16 03/19/24 12:02 03/19/24 08:00 Temperature 97.4 F L Pulse Rate 65 58 L Respiratory Rate 18 Blood Pressure 170/67 H Pulse Oximetry 96 Oxygen Delivery Room Air 03/19/24 12:00 03/19/24 13:13 Temperature Pulse Rate Respiratory Rate Blood Pressure 161/64 H Pulse Oximetry Oxygen Delivery Room Air Intake/Output Intake/Output: Intake & Output 03/16/24 03/17/24 03/18/24 03/19/24 23:59 23:59 23:59 23:59 Intake Total 2413.4 2455.9 Output Total 950 800 Balance 1463.4 1655.9 Meds/Results Medications: Active Medications Generic Name Dose Route Start Last Admin Trade Name Freq PRN Reason Stop Dose Admin Acetaminophen 650 mg 03/18/24 02:38 Acetaminophen 325 Mg Tablet PO DAILY PRN Pain Al Hydrox/Mg Hydrox/Simethicone 30 ml 03/18/24 02:38 Mag Hydrox/Al Hydrox/Simeth 30 Ml Udc PO Q6H PRN Indigestion Amlodipine Besylate 2.5 mg 03/19/24 12:35 03/19/24 13:14 Amlodipine Besylate 2.5 Mg Tablet PO 2.5 mg QAM LINDA Administration Atenolol 50 mg 03/18/24 09:00 03/19/24 09:16 Atenolol 50 Mg Tablet PO 50 mg BID LINDA Administration Azithromycin 500 mg 03/18/24 21:00 03/18/24 21:05 Azithromycin 250 Mg Tablet PO 03/21/24 21:01 500 mg DAILY@2100 LINDA Administration Dextrose 12.5 gm 03/18/24 04:36 Dextrose 50% 25 Gm/50 Ml Syringe IV PUSH PRN PRN Hypoglycemia Protocol Glucagon 1 mg 03/18/24 04:36 Glucagon For Inj 1 Mg Vial IM PRN PRN Hypoglycemia Protocol Glucose 15 gm 03/18/24 04:36 Glucose Oral Gel 15 Gm Of Glucse In 37.5 Gm Tube PO PRN PRN Hypoglycemia Protocol Heparin Sodium (Porcine) 5,500 units 03/18/24 11:27 03/19/24 14:03 Heparin Sodium 5,000 Units/Ml Vial IV PUSH 5,500 units PRN PRN Administration aPTT less than 55 seconds Heparin Sodium (Porcine) 3,000 units 03/18/24 11:27 03/19/24 00:46 Heparin Sodium 5,000 Units/Ml Vial IV PUSH 3,000 units PRN PRN Administration aPTT 55 - 70 seconds Sodium Chloride 1,000 mls @ 75 mls/hr 03/18/24 02:40 03/19/24 09:24 Normal Saline Iv IV CONT 75 mls/hr .[id number] LINDA Administration Ceftriaxone Sodium 2 gm in 100 mls @ 200 mls/hr 03/18/24 20:00 03/18/24 21:35 Rocephin 2 Gm/Ns 100 Ml IVPB Infused Q24H LINDA Infusion Dextrose 1,000 mls @ 100 mls/hr 03/18/24 04:36 Dextrose 5% 1,000 Ml IVPB PRN PRN Hypoglycemia Protocol Heparin Sodium/Dextrose 25,000 units in 250 mls @ 18 mls/hr 03/18/24 11:30 03/19/24 14:02 Heparin Sodium/D5w 100 Units/Ml IV CONT 1,800 units/hr .[id number] LINDA 18 mls/hr Titration Protocol 1,800 UNITS/HR Ondansetron HCl 4 mg 03/18/24 02:41 Ondansetron Inj 4 Mg/2 Ml Vial IV PUSH Q6H PRN Nausea And Vomiting Perflutren Lipid Microsphere 0 ml 03/18/24 02:38 Perflutren Lipid Microspheres 1.5 Ml Vial Diluted To 10 Ml Total Volume IV PUSH 03/21/24 02:40 ONCE PRN adequate visualization Protocol Polyethylene Glycol 17 gm 03/18/24 02:38 Polyethylene Glycol 3350 17 Gm Powd.Pack PO QAM PRN Constipation Rivaroxaban 20 mg 03/18/24 17:00 Rivaroxaban 20 Mg Tablet PO DAILY@1700 [facility] Sodium Chloride 1 applic 03/19/24 21:00 Sodium Chloride 5% Ophth Oint 3.5 Gm Tube EACH EYE HS [facility] Sodium Chloride 1 drop 03/19/24 17:00 Sodium Chloride 5% Op Soln 15 Ml Btl EACH EYE TID [facility] Radiology Results: ITS Impressions Renal Ultrasound 03/18/24 12:20 IMPRESSION: 1. Moderate diffuse cortical atrophy at the left kidney. No hydronephrosis. 2. Bilateral renal cysts. Labs Labs: Laboratory Results - last 24 hr 03/18/24 03/18/24 03/18/24 15:31 17:37 19:40 WBC RBC Hgb Hct MCV MCH MCHC RDW Plt Count MPV Immature Gran % (Auto) Neut % (Auto) Lymph % (Auto) [place] % (Auto) Eos % (Auto) Baso % (Auto) Lymph # (Auto) [place] # (Auto) Eos # (Auto) Baso # (Auto) Abs Immat Gran (auto) Absolute Neuts (auto) Absolute Nucleated RBC Nucleated RBC % APTT 56.2 H Sodium 123 L Potassium Chloride Carbon Dioxide Anion Gap BUN Creatinine Estim Creat Clear Calc Estimated GFR Glucose POC Capillary Glucose 106 H Calcium Phosphorus Total Bilirubin AST ALT Alkaline Phosphatase Total Protein 5.3 L Albumin 03/18/24 03/19/24 03/19/24 20:03 00:15 00:20 WBC RBC Hgb Hct MCV MCH MCHC RDW Plt Count MPV Immature Gran % (Auto) Neut % (Auto) Lymph % (Auto) [place] % (Auto) Eos % (Auto) Baso % (Auto) Lymph # (Auto) [place] # (Auto) Eos # (Auto) Baso # (Auto) Abs Immat Gran (auto) Absolute Neuts (auto) Absolute Nucleated RBC Nucleated RBC % APTT 66.1 H Sodium Potassium Chloride Carbon Dioxide Anion Gap BUN Creatinine Estim Creat Clear Calc Estimated GFR Glucose POC Capillary Glucose 107 H 107 H Calcium Phosphorus Total Bilirubin AST ALT Alkaline Phosphatase Total Protein Albumin 03/19/24 03/19/24 03/19/24 06:56 07:22 11:42 WBC 18.3 H RBC 3.77 L Hgb 11.2 L Hct 32.3 L MCV 85.7 MCH 29.7 MCHC 34.7 RDW 14.1 Plt Count 242 MPV 10.2 Immature Gran % (Auto) 2.9 H Neut % (Auto) 82.5 H Lymph % (Auto) 5.7 L [place] % (Auto) 7.9 Eos % (Auto) 0.3 Baso % (Auto) 0.7 Lymph # (Auto) 1.05 [place] # (Auto) 1.5 H Eos # (Auto) 0.1 Baso # (Auto) 0.1 Abs Immat Gran (auto) 0.53 H Absolute Neuts (auto) 15.1 H Absolute Nucleated RBC 0.000 Nucleated RBC % 0.0 APTT 73.4 H Sodium 125 L Potassium 3.8 Chloride 95 L Carbon Dioxide 17 L Anion Gap 13 H BUN 99 H Creatinine 4.90 H Estim Creat Clear Calc 9 Estimated GFR 8 L Glucose 102 POC Capillary Glucose 111 H 153 H Calcium 7.6 L Phosphorus 5.5 H Total Bilirubin 0.7 AST 31 ALT 20 Alkaline Phosphatase 217 H Total Protein 6.0 L Albumin 2.6 L 03/19/24 12:54 WBC RBC Hgb Hct MCV MCH MCHC RDW Plt Count MPV Immature Gran % (Auto) Neut % (Auto) Lymph % (Auto) [place] % (Auto) Eos % (Auto) Baso % (Auto) Lymph # (Auto) [place] # (Auto) Eos # (Auto) Baso # (Auto) Abs Immat Gran (auto) Absolute Neuts (auto) Absolute Nucleated RBC Nucleated RBC % APTT 53.4 H Sodium Potassium Chloride Carbon Dioxide Anion Gap BUN Creatinine Estim Creat Clear Calc Estimated GFR Glucose POC Capillary Glucose Calcium Phosphorus Total Bilirubin AST ALT Alkaline Phosphatase Total Protein Albumin
[2024-03-19 14:54] LABS: Osmolality, Urine 249 mOsm/kg (50-1200)
[2024-03-19 16:26] LABS: Glucose Point of Care 124 mg/dl (65-105)
[2024-03-19 16:54] LABS: Sodium 124 mmol/L (137-145)
[2024-03-19 17:08] LABS: Albumin 2.3 g/dL (3.8-4.8); Alpha 1 Globulin 0.6 g/dL (0.2-0.3); Alpha 2 Globulin 0.9 g/dL (0.5-0.9); Beta 1 Globulin 0.4 g/dL (0.4-0.6); Gamma Globulin 0.7 g/dL (0.8-1.7)
[2024-03-19] MEDS: SODIUM CHLORIDE 5% OP SOLN 15 ML BTL 1 DROP EACH EYE (18:09)
[2024-03-19 20:16] LABS: Glucose Point of Care 120 mg/dl (65-105)
[2024-03-19 20:55] LABS: Partial Thromboplastin Time 160.5 Seconds (22.3-36.8)
[2024-03-19] MEDS: AZITHROMYCIN 250 MG TABLET 500 MG PO (21:01)
[2024-03-19] MEDS: SODIUM CHLORIDE 5% OPHTH OINT 3.5 GM TUBE 1 APPLIC EACH EYE (21:02)
[2024-03-19] MEDS: HEPARIN SOD/D5W 100 UNITS/ML 25,000 UNITS/250 ML BAG 18 UNITS IV CONT (21:07)
[2024-03-19] MEDS: cefTRIAXone 2 GM/NS 100 ML 2 GM/100 ML BAG IVPB (21:08)
[2024-03-20] VITALS (18 sets, daily range): BP systolic 146–166; BP diastolic 50–64; PULSE 57–75; RESP 16–24; TEMP 36.4–36.6; O2SAT 91–100
[2024-03-20 04:45] LABS: Basophils Absolute Auto 0.1 K/mm3 (0.0-0.1); Basophils Percent Auto 0.6 % (0.2-1.2); Eosinophils Absolute Auto 0.1 K/mm3 (0-0.3); Eosinophils Percent Auto 0.7 % (0-4.4); Hematocrit 31.6 % (37.0-47.0); Hemoglobin 10.8 g/dL (12.0-15.0); Immature Granulocyte Absolute 0.92 K/mm3 (0.00-0.031); Immature Granulocyte Percent A 6.6 % (0-0.5); Lymphocytes Absolute Auto 1.24 K/mm3 (0.9-3.2); Lymphocytes Percent Auto 8.9 % (18.3-44.2); Mean Corpuscular HGB Conc 34.2 g/dl (32-36); Mean Corpuscular Hemoglobin 29.2 pg (26-34); Mean Corpuscular Volume 85.4 fl (80-100); Mean Platelet Volume 9.7 fl (7.4-10.4); Monocytes Absolute Auto 1.4 K/mm3 (0.1-0.6); Monocytes Percent Auto 9.8 % (2.6-8.5); Neutrophils Absolute Auto 10.3 K/mm3 (1.3-6.7); Neutrophils Percent Auto 73.4 % (45.5-73.1); Platelet Count Result 275 k/mm3 (150-375); Red Cell Distribution Width 14.1 % (11.5-14.5)
[2024-03-20 04:57] LABS: Alanine Aminotransferase 20 U/L (6-35); Albumin Level 2.5 g/dL (3.5-5.1); Alkaline Phosphatase 203 U/L (38-126); Anion Gap 11 mmol/L (4-12); Aspartate Amino Transferase 30 U/L (14-36); Bilirubin,Total 0.6 mg/dL (0.2-1.3); Blood Urea Nitrogen 90 mg/dL (7-17); Calcium 7.5 mg/dL (8.4-10.2); Carbon Dioxide 17 mmol/L (22-30); Chloride 98 mmol/L (98-107); Estimated CRCL calculation 10 ml/min; Estimated Glomerular Filt Rate 10; Glucose 107 mg/dL (65-110); Magnesium 1.9 mg/dL (1.6-2.3); Potassium 3.8 mmol/L (3.4-5.0); Sodium 126 mmol/L (137-145)
[2024-03-20 04:59] LABS: Partial Thromboplastin Time 96.8 Seconds (22.3-36.8)
--- NOTE | 2024-03-20 07:17 | WPDUROPN2 ---
Progress Note: A&P Assessment and Plan (1) Hematuria: Code(s): R31.9 - Hematuria, unspecified Status: Acute Assessment and Plan: Cystoscopy, possible bladder tumor resection scheduled for tomorrow. Subjective Subjective Date/Time Seen: 03/20/24 07:17 Interval history: Comfortable, no complaints Review of Systems Cardiovascular: Cardiovascular: Denies chest pain, Denies lightheadedness, Denies palpitations and Denies dyspnea Respiratory: Respiratory: Denies dyspnea Gastrointestinal: Gastrointestinal: Denies diarrhea, Denies nausea and Denies vomiting Genitourinary: Genitourinary: Denies hematuria and Denies dysuria Endocrine: Endocrine: Denies palpitations Exam Const: General: no acute distress Resp: Effort & Inspection: normal respiratory effort GI: Inspection: non-distended GI Palp: No abdominal tenderness and No Guarding due to palpation present (GI) Auscultation: normal bowel sounds Objective Data Vital Signs Vital Signs: Vital Signs - 24 hr 03/19/24 07:20 03/19/24 09:16 03/19/24 12:02 Temperature 98.3 F 97.4 F L Pulse Rate 62 65 58 L Respiratory Rate 20 18 Blood Pressure 146/56 H 170/67 H Pulse Oximetry 95 96 Oxygen Delivery 03/19/24 08:00 03/19/24 12:00 03/19/24 13:13 Temperature Pulse Rate Respiratory Rate Blood Pressure 161/64 H Pulse Oximetry Oxygen Delivery Room Air Room Air 03/19/24 08:00 03/19/24 10:00 03/19/24 12:00 Temperature Pulse Rate 64 61 59 L Respiratory Rate Blood Pressure Pulse Oximetry Oxygen Delivery 03/19/24 14:00 03/19/24 16:00 03/19/24 16:00 Temperature 97.7 F Pulse Rate 63 58 L Respiratory Rate 20 Blood Pressure 162/74 H Pulse Oximetry 100 Oxygen Delivery Room Air 03/19/24 18:07 03/19/24 16:00 03/19/24 18:00 Temperature Pulse Rate 60 60 60 Respiratory Rate Blood Pressure Pulse Oximetry Oxygen Delivery 03/19/24 20:15 03/19/24 20:00 03/19/24 20:00 Temperature 97.8 F Pulse Rate 60 59 L Respiratory Rate 20 Blood Pressure 92/67 L Pulse Oximetry 100 Oxygen Delivery Room Air 03/19/24 22:00 03/20/24 00:33 03/20/24 00:00 Temperature 97.8 F Pulse Rate 58 L 63 60 Respiratory Rate 20 Blood Pressure 146/50 H Pulse Oximetry 97 Oxygen Delivery 03/20/24 00:00 03/20/24 04:30 03/20/24 02:00 Temperature 97.8 F Pulse Rate 60 61 Respiratory Rate 20 Blood Pressure 149/58 H Pulse Oximetry 97 Oxygen Delivery Room Air 03/20/24 04:00 03/20/24 04:00 03/20/24 05:49 Temperature Pulse Rate 59 L 59 L Respiratory Rate Blood Pressure Pulse Oximetry Oxygen Delivery Room Air Intake/Output Intake/Output: Intake & Output 03/17/24 03/18/24 03/19/24 03/20/24 23:59 23:59 23:59 23:59 Intake Total 2413.4 3954.4 661.5 Output Total 950 1350 1150 Balance 1463.4 2604.4 -488.5 Meds/Results Medications: Active Medications Generic Name Dose Route Start Last Admin Trade Name Freq PRN Reason Stop Dose Admin Acetaminophen 650 mg 03/18/24 02:38 Acetaminophen 325 Mg Tablet PO DAILY PRN Pain Al Hydrox/Mg Hydrox/Simethicone 30 ml 03/18/24 02:38 Mag Hydrox/Al Hydrox/Simeth 30 Ml Udc PO Q6H PRN Indigestion Amlodipine Besylate 2.5 mg 03/19/24 12:35 03/19/24 13:14 Amlodipine Besylate 2.5 Mg Tablet PO 2.5 mg QAM LINDA Administration Atenolol 50 mg 03/18/24 09:00 03/19/24 18:07 Atenolol 50 Mg Tablet PO 50 mg BID LINDA Administration Azithromycin 500 mg 03/18/24 21:00 03/19/24 21:01 Azithromycin 250 Mg Tablet PO 03/21/24 21:01 500 mg DAILY@2100 LINDA Administration Dextrose 12.5 gm 03/18/24 04:36 Dextrose 50% 25 Gm/50 Ml Syringe IV PUSH PRN PRN Hypoglycemia Protocol Glucagon 1 mg 03/18/24 04:36 Glucagon For Inj 1 Mg Vial IM PRN PRN Hypoglycemia Protocol Glucose 15 gm 03/18/24 04:36 Glucose Oral Gel 15 Gm Of Glucse In 37.5 Gm Tube PO PRN PRN Hypoglycemia Protocol Heparin Sodium (Porcine) 5,500 units 03/18/24 11:27 03/19/24 14:03 Heparin Sodium 5,000 Units/Ml Vial IV PUSH 5,500 units PRN PRN Administration aPTT less than 55 seconds Heparin Sodium (Porcine) 3,000 units 03/18/24 11:27 03/19/24 00:46 Heparin Sodium 5,000 Units/Ml Vial IV PUSH 3,000 units PRN PRN Administration aPTT 55 - 70 seconds Sodium Chloride 1,000 mls @ 75 mls/hr 03/18/24 02:40 03/19/24 21:02 Normal Saline Iv IV CONT 75 mls/hr .[id number] LINDA Administration Ceftriaxone Sodium 2 gm in 100 mls @ 200 mls/hr 03/18/24 20:00 03/19/24 21:55 Rocephin 2 Gm/Ns 100 Ml IVPB Infused Q24H LINDA Infusion Dextrose 1,000 mls @ 100 mls/hr 03/18/24 04:36 Dextrose 5% 1,000 Ml IVPB PRN PRN Hypoglycemia Protocol Heparin Sodium/Dextrose 25,000 units in 250 mls @ 16 mls/hr 03/18/24 11:30 03/20/24 05:06 Heparin Sodium/D5w 100 Units/Ml IV CONT 1,600 units/hr .[id number] LINDA 16 mls/hr Titration Protocol 1,600 UNITS/HR Ondansetron HCl 4 mg 03/18/24 02:41 Ondansetron Inj 4 Mg/2 Ml Vial IV PUSH Q6H PRN Nausea And Vomiting Perflutren Lipid Microsphere 0 ml 03/18/24 02:38 Perflutren Lipid Microspheres 1.5 Ml Vial Diluted To 10 Ml Total Volume IV PUSH 03/21/24 02:40 ONCE PRN adequate visualization Protocol Polyethylene Glycol 17 gm 03/18/24 02:38 Polyethylene Glycol 3350 17 Gm Powd.Pack PO QAM PRN Constipation Rivaroxaban 20 mg 03/18/24 17:00 Rivaroxaban 20 Mg Tablet PO DAILY@1700 LINDA Sodium Chloride 1 applic 03/19/24 21:00 03/19/24 21:02 Sodium Chloride 5% Ophth Oint 3.5 Gm Tube EACH EYE 1 applic HS LINDA Administration Sodium Chloride 1 drop 03/19/24 17:00 03/19/24 18:09 Sodium Chloride 5% Op Soln 15 Ml Btl EACH EYE 1 drop TID LINDA Administration Radiology Results: ITS Impressions Renal Ultrasound 03/18/24 12:20 IMPRESSION: 1. Moderate diffuse cortical atrophy at the left kidney. No hydronephrosis. 2. Bilateral renal cysts. Labs Labs: Laboratory Results - last 24 hr 03/18/24 03/18/24 03/19/24 13:01 17:37 06:56 WBC 18.3 H RBC 3.77 L Hgb 11.2 L Hct 32.3 L MCV 85.7 MCH 29.7 MCHC 34.7 RDW 14.1 Plt Count 242 MPV 10.2 Immature Gran % (Auto) 2.9 H Neut % (Auto) 82.5 H Lymph % (Auto) 5.7 L [place] % (Auto) 7.9 Eos % (Auto) 0.3 Baso % (Auto) 0.7 Lymph # (Auto) 1.05 [place] # (Auto) 1.5 H Eos # (Auto) 0.1 Baso # (Auto) 0.1 Abs Immat Gran (auto) 0.53 H Absolute Neuts (auto) 15.1 H Absolute Nucleated RBC 0.000 Nucleated RBC % 0.0 APTT Sodium 125 L Potassium 3.8 Chloride 95 L Carbon Dioxide 17 L Anion Gap 13 H BUN 99 H Creatinine 4.90 H Estim Creat Clear Calc 9 Estimated GFR 8 L Glucose 102 POC Capillary Glucose Calcium 7.6 L Phosphorus 5.5 H Magnesium Total Bilirubin 0.7 AST 31 ALT 20 Alkaline Phosphatase 217 H Total Protein 5.3 L 6.0 L Albumin 2.3 L 2.6 L Fjfmy-3-Zndfagbwf 0.6 H Fvnfz-7-Gxfkmaien 0.9 Cnrj-2-Ugcceypt 0.4 Ilaz-0-Uhaslyht 0.4 Gamma Globulins 0.7 L PEP Interpretation See note Urine Osmolality 249 03/19/24 03/19/24 03/19/24 07:22 11:42 12:54 WBC RBC Hgb Hct MCV MCH MCHC RDW Plt Count MPV Immature Gran % (Auto) Neut % (Auto) Lymph % (Auto) [place] % (Auto) Eos % (Auto) Baso % (Auto) Lymph # (Auto) [place] # (Auto) Eos # (Auto) Baso # (Auto) Abs Immat Gran (auto) Absolute Neuts (auto) Absolute Nucleated RBC Nucleated RBC % APTT 53.4 H Sodium Potassium Chloride Carbon Dioxide Anion Gap BUN Creatinine Estim Creat Clear Calc Estimated GFR Glucose POC Capillary Glucose 111 H 153 H Calcium Phosphorus Magnesium Total Bilirubin AST ALT Alkaline Phosphatase Total Protein Albumin Hrmaa-9-Roohdckri Xhyqx-1-Ronnqvjzn Xqlm-7-Rzoneeep Kdxh-9-Plqkwsyw Gamma Globulins PEP Interpretation Urine Osmolality 03/19/24 03/19/24 03/19/24 16:02 16:43 19:55 WBC RBC Hgb Hct MCV MCH MCHC RDW Plt Count MPV Immature Gran % (Auto) Neut % (Auto) Lymph % (Auto) [place] % (Auto) Eos % (Auto) Baso % (Auto) Lymph # (Auto) [place] # (Auto) Eos # (Auto) Baso # (Auto) Abs Immat Gran (auto) Absolute Neuts (auto) Absolute Nucleated RBC Nucleated RBC % APTT 160.5 H* Sodium 124 L Potassium Chloride Carbon Dioxide Anion Gap BUN Creatinine Estim Creat Clear Calc Estimated GFR Glucose POC Capillary Glucose 124 H Calcium Phosphorus Magnesium Total Bilirubin AST ALT Alkaline Phosphatase Total Protein Albumin Rqkdu-3-Wlyunqtam Bhtgf-9-Nbsntiwzk Ghdu-5-Qzfrtfku Orve-3-Gwbcqfge Gamma Globulins PEP Interpretation Urine Osmolality 03/19/24 03/20/24 20:09 04:36 WBC 14.0 H RBC 3.70 L Hgb 10.8 L Hct 31.6 L MCV 85.4 MCH 29.2 MCHC 34.2 RDW 14.1 Plt Count 275 MPV 9.7 Immature Gran % (Auto) 6.6 H Neut % (Auto) 73.4 H Lymph % (Auto) 8.9 L [place] % (Auto) 9.8 H Eos % (Auto) 0.7 Baso % (Auto) 0.6 Lymph # (Auto) 1.24 [place] # (Auto) 1.4 H Eos # (Auto) 0.1 Baso # (Auto) 0.1 Abs Immat Gran (auto) 0.92 H Absolute Neuts (auto) 10.3 H Absolute Nucleated RBC 0.000 Nucleated RBC % 0.0 APTT 96.8 H Sodium 126 L Potassium 3.8 Chloride 98 Carbon Dioxide 17 L Anion Gap 11 BUN 90 H Creatinine 4.40 H Estim Creat Clear Calc 10 Estimated GFR 10 L Glucose 107 POC Capillary Glucose 120 H Calcium 7.5 L Phosphorus Magnesium 1.9 Total Bilirubin 0.6 AST 30 ALT 20 Alkaline Phosphatase 203 H Total Protein 6.0 L Albumin 2.5 L Lfahc-1-Zugjrgtzc Wvxnw-3-Ytdkfjsuw Grva-3-Jlqerzzl Xocj-6-Wbckaoxu Gamma Globulins PEP Interpretation Urine Osmolality
[2024-03-20 07:40] LABS: Glucose Point of Care 121 mg/dl (65-105)
[2024-03-20] MEDS: SODIUM CHLORIDE 5% OP SOLN 15 ML BTL 1 DROP EACH EYE ×3 (08:22→16:43)
[2024-03-20] MEDS: SODIUM CHLORIDE 0.9% IV 1,000 ML 75 ML IV CONT ×2 (08:22→20:26)
[2024-03-20] MEDS: atenoloL 50 MG TABLET PO ×2 (08:24→16:43)
[2024-03-20] MEDS: amLODIPine BESYLATE 2.5 MG TABLET PO (08:25)
[2024-03-20 10:43] LABS: Anti Nuclear Antibody Pattern Cytoplasmic; Anti Nuclear Antibody Titer 1:40 titer
[2024-03-20 11:11] LABS: Partial Thromboplastin Time 72.2 Seconds (22.3-36.8)
[2024-03-20 12:02] LABS: Glucose Point of Care 141 mg/dl (65-105)
--- NOTE | 2024-03-20 13:15 | P.PNNP_ITS ---
Progress Note: A&P Assessment and Plan (1) Acute renal failure: Code(s): N17.9 - Acute kidney failure, unspecified Status: Acute Assessment and Plan: * as noted by admission labs * evaluation to date noted: * fractional excretion of urea is pre renal * renal ultrasound shows moderate diffuse cortical atrophy of the left kidney; bilateral renal cysts * CT showed the bladder mass * CPK mildly elevated * serologies pending * creatinine has trended down with IVF hydration * suspect insult due to volume depletion/pre renal azotemia due to diminished oral intake coupled with infection (UTI/bacteremia) * follow trend of repeat labs and UOP * continue supportive therapy (2) Chronic kidney disease, stage 3b: Code(s): N18.32 - Chronic kidney disease, stage 3b Status: Acute Assessment and Plan: * baseline creatinine runs ~ 1.0 - 1.4mg/dl * follow-up on pending testing * suspect due to HTN, vascular disease and age-related change (3) Hyponatremia: Code(s): E87.1 - Hypo-osmolality and hyponatremia Status: Inactive Assessment and Plan: * slow improvement noted * only real intervention has been IVFs * evaluation noted: * urine sodium low * TSH and cortisol okay * serum/urine osmo and protein electrophoresis pending * noted bladder mass * chlorthalidone use * follow trend of sodium (4) Urinary tract infection: Code(s): N39.0 - Urinary tract infection, site not specified Status: Acute Assessment and Plan: * urine and blood culture with GNB * on antibiotics * follow repeat cultures (5) HTN (hypertension): Code(s): I10 - Essential (primary) hypertension Status: Acute Assessment and Plan: * reasonable control * follow trend on hemodynamics (6) Bladder mass: Code(s): N32.89 - Other specified disorders of bladder Status: Acute Assessment and Plan: * as noted by admission imaging * Urology following * likely intervention tomorrow Will continue to follow. Subjective Date/time seen: 03/20/24 13:15 Interval history: Follow-up for acute kidney injury/acute renal failure. Chart reviewed -- assuming care from Dr. Manzo; overall, she reports that she is feeling better at the time of my visit; renal function/creatinine continues to improve albeit slowly; no apparent distress noted. Exam Narrative: General: elderly but WD/WN female in NAD Heart: normal S1 and S2; no rub Lungs: clear to auscultation Abdomen: soft, nontender, nondistended, positive bowel sounds Extremities: no cyanosis or clubbing; no edema Skin: warm and dry Objective Data Vital Signs Vital Signs: Vital Signs 03/19/24 07:20 03/19/24 09:16 03/19/24 12:02 Temperature 98.3 F 97.4 F L Pulse Rate 62 65 58 L Respiratory Rate 20 18 Blood Pressure 146/56 H 170/67 H Pulse Oximetry 95 96 Oxygen Delivery Oxygen Flow Rate 03/19/24 08:00 03/19/24 12:00 03/19/24 13:13 Temperature Pulse Rate Respiratory Rate Blood Pressure 161/64 H Pulse Oximetry Oxygen Delivery Room Air Room Air Oxygen Flow Rate 03/19/24 08:00 03/19/24 10:00 03/19/24 12:00 Temperature Pulse Rate 64 61 59 L Respiratory Rate Blood Pressure Pulse Oximetry Oxygen Delivery Oxygen Flow Rate 03/19/24 14:00 03/19/24 16:00 03/19/24 16:00 Temperature 97.7 F Pulse Rate 63 58 L Respiratory Rate 20 Blood Pressure 162/74 H Pulse Oximetry 100 Oxygen Delivery Room Air Oxygen Flow Rate 03/19/24 18:07 03/19/24 16:00 03/19/24 18:00 Temperature Pulse Rate 60 60 60 Respiratory Rate Blood Pressure Pulse Oximetry Oxygen Delivery Oxygen Flow Rate 03/19/24 20:15 03/19/24 20:00 03/19/24 20:00 Temperature 97.8 F Pulse Rate 60 59 L Respiratory Rate 20 Blood Pressure 92/67 L Pulse Oximetry 100 Oxygen Delivery Room Air Oxygen Flow Rate 03/19/24 22:00 03/20/24 00:33 03/20/24 00:00 Temperature 97.8 F Pulse Rate 58 L 63 60 Respiratory Rate 20 Blood Pressure 146/50 H Pulse Oximetry 97 Oxygen Delivery Oxygen Flow Rate 03/20/24 00:00 03/20/24 04:30 03/20/24 02:00 Temperature 97.8 F Pulse Rate 60 61 Respiratory Rate 20 Blood Pressure 149/58 H Pulse Oximetry 97 Oxygen Delivery Room Air Oxygen Flow Rate 03/20/24 04:00 03/20/24 04:00 03/20/24 05:49 Temperature Pulse Rate 59 L 59 L Respiratory Rate Blood Pressure Pulse Oximetry Oxygen Delivery Room Air Oxygen Flow Rate 03/20/24 08:24 03/20/24 08:00 03/20/24 08:00 Temperature 97.9 F Pulse Rate 60 58 L Respiratory Rate 18 Blood Pressure 147/57 H Pulse Oximetry 96 Oxygen Delivery Room Air Oxygen Flow Rate 03/20/24 08:00 03/20/24 10:00 03/20/24 11:06 Temperature Pulse Rate 62 62 Respiratory Rate Blood Pressure Pulse Oximetry Oxygen Delivery Room Air Oxygen Flow Rate 03/20/24 12:00 03/20/24 12:00 03/20/24 12:00 Temperature 97.6 F Pulse Rate 60 57 L Respiratory Rate 20 Blood Pressure 164/63 H Pulse Oximetry 91 Oxygen Delivery Room Air Oxygen Flow Rate Intake/Output Intake/Output: Intake & Output 03/18/24 03/19/24 03/20/24 03/21/24 23:59 23:59 23:59 23:59 Intake Total 2413.4 3954.4 3531.9 1352 Output Total 950 1350 3250 2785 Balance 1463.4 2604.4 281.9 -1433 Meds/Results Medications: Active Medications Generic Name Dose Route Start Last Admin Trade Name Freq PRN Reason Stop Dose Admin Acetaminophen 650 mg 03/18/24 02:38 Acetaminophen 325 Mg Tablet PO DAILY PRN Pain Al Hydrox/Mg Hydrox/Simethicone 30 ml 03/18/24 02:38 Mag Hydrox/Al Hydrox/Simeth 30 Ml Udc PO Q6H PRN Indigestion Amlodipine Besylate 2.5 mg 03/19/24 12:35 03/21/24 17:31 Amlodipine Besylate 2.5 Mg Tablet PO 2.5 mg QAM LINDA Administration Atenolol 50 mg 03/18/24 09:00 03/21/24 17:31 Atenolol 50 Mg Tablet PO 50 mg BID LINDA Administration Azithromycin 500 mg 03/18/24 21:00 03/20/24 20:26 Azithromycin 250 Mg Tablet PO 03/21/24 21:01 500 mg DAILY@2100 LINDA Administration Dextrose 12.5 gm 03/18/24 04:36 Dextrose 50% 25 Gm/50 Ml Syringe IV PUSH PRN PRN Hypoglycemia Protocol Glucagon 1 mg 03/18/24 04:36 Glucagon For Inj 1 Mg Vial IM PRN PRN Hypoglycemia Protocol Glucose 15 gm 03/18/24 04:36 Glucose Oral Gel 15 Gm Of Glucse In 37.5 Gm Tube PO PRN PRN Hypoglycemia Protocol Heparin Sodium (Porcine) 5,500 units 03/22/24 02:00 Heparin Sodium 5,000 Units/Ml Vial IV PUSH 03/22/24 02:01 ONCE ONE Heparin Sodium (Porcine) 5,500 units 03/22/24 02:00 Heparin Sodium 5,000 Units/Ml Vial IV PUSH 03/22/24 02:01 ONCE ONE Heparin Sodium (Porcine) 5,500 units 03/22/24 02:00 Heparin Sodium 5,000 Units/Ml Vial IV PUSH PRN PRN aPTT less than 55 seconds Hydralazine HCl 10 mg 03/20/24 14:18 Hydralazine Hcl 20 Mg/Ml Vial IV PUSH Q8H PRN Blood Pressure - High Sodium Chloride 1,000 mls @ 75 mls/hr 03/18/24 02:40 03/21/24 17:36 Normal Saline Iv IV CONT 75 mls/hr .[id number] LINDA Administration Ceftriaxone Sodium 2 gm in 100 mls @ 200 mls/hr 03/18/24 20:00 03/20/24 20:25 Rocephin 2 Gm/Ns 100 Ml IVPB 200 mls/hr Q24H LINDA Administration Dextrose 1,000 mls @ 100 mls/hr 03/18/24 04:36 Dextrose 5% 1,000 Ml IVPB PRN PRN Hypoglycemia Protocol Heparin Sodium/Dextrose 25,000 units in 250 mls @ 13 mls/hr 03/22/24 02:00 Heparin Sodium/D5w 100 Units/Ml IV CONT .[id number] LINDA Protocol 1,300 UNITS/HR Ondansetron HCl 4 mg 03/18/24 02:41 Ondansetron Inj 4 Mg/2 Ml Vial IV PUSH Q6H PRN Nausea And Vomiting Polyethylene Glycol 17 gm 03/18/24 02:38 Polyethylene Glycol 3350 17 Gm Powd.Pack PO QAM PRN Constipation Rivaroxaban 20 mg 03/18/24 17:00 Rivaroxaban 20 Mg Tablet PO DAILY@1700 LINDA Sodium Chloride 1 applic 03/19/24 21:00 03/20/24 20:26 Sodium Chloride 5% Ophth Oint 3.5 Gm Tube EACH EYE 1 applic HS LIDNA Administration Sodium Chloride 1 drop 03/19/24 17:00 03/21/24 17:36 Sodium Chloride 5% Op Soln 15 Ml Btl EACH EYE 1 drop TID LINDA Administration Radiology Results: ITS Impressions Renal Ultrasound 03/18/24 12:20 IMPRESSION: 1. Moderate diffuse cortical atrophy at the left kidney. No hydronephrosis. 2. Bilateral renal cysts. Retrograde Pyelogram 03/21/24 15:32 IMPRESSION: 1. Normal bilateral retrograde pyelograms. Labs Labs: Laboratory Results - last 24 hr 03/20/24 04:36 WBC 14.0 H Hgb 10.8 L Hct 31.6 L Plt Count 275 Sodium 126 L Potassium 3.8 Chloride 98 Carbon Dioxide 17 L Anion Gap 11 BUN 90 H Creatinine 4.40 H Estim Creat Clear Calc 10 Estimated GFR 10 L Glucose 107 Calcium 7.5 L Magnesium 1.9 Total Bilirubin 0.6 AST 30 ALT 20 Alkaline Phosphatase 203 H Total Protein 6.0 L Albumin 2.5 L
[2024-03-20] MEDS: HEPARIN SOD/D5W 100 UNITS/ML 25,000 UNITS/250 ML BAG 16 UNITS IV CONT (13:48)
--- NOTE | 2024-03-20 14:18 | PM.IMPN ---
Progress Note: A&P Assessment and Plan (1) Acute renal failure: Code(s): N17.9 - Acute kidney failure, unspecified Status: Inactive (2) Urinary tract infection: Code(s): N39.0 - Urinary tract infection, site not specified Status: Acute (3) Bladder mass: Code(s): N32.89 - Other specified disorders of bladder Status: Acute Plan # MATTHEW -Abd/Pelvis CT : Left renal atrophy. No hydronephrosis.Cystitis versus urinary bladder wall thickening from incomplete distention.Small volume pelvic ascites.1.5 cm bladder mass, recommend urology referral. -Urology evaluated possible cystoscopy -Cr 5.50 -->4.4( Baseline 1.30),GFR 7 BUN 99 -US renal showed diffuse cortical atrophy 24 hr urine for immunofixation -Hold Nephrotoxic drugs -Chlorthalidone on hold continue IVF and nephrology following Bladder mass Urology planning for Cystoscopy with TURP tomorrow Urology following from UTI Blood and urine culture positive for E coli Awaiting sensitivity continue Rocephin # Hypo Na -Na 126, today -Chlorthalidone on hold -Dehydration contribution -NaCl @ 75ml/hr -fractional excretion of urea -CPK , serology and immunofixation. -Nephrology following #UTI/Urosepsis with E coli bacteremia Blood and urine cultures positive for E coli continue Rocephin and monitor cultures Possible pneumonia CXR showed consolidation vs atelectasis COntineu Rocpehin adn Azithromycin monitor #Hypercoagulable state -Heparin drip -Xarelto on hold due to possible cystoscopy -Not required a phlebotomy in the last year. -Follows up with DVT prophylaxis on Heparin infusion Subjective Date/time seen: 03/20/24 14:18 Interval history: noted some improvements today Cr 4.4 from 4.9 Review of Systems Review of Systems: All systems reviewed & are unremarkable except as noted in HPI and below Exam Const: General: no acute distress Resp: Effort & Inspection: normal respiratory effort GI: Inspection: non-distended Auscultation: normal bowel sounds Objective Data Vital Signs Vital Signs: Vital Signs - 24 hr 03/19/24 16:00 03/19/24 16:00 03/19/24 18:07 Temperature 97.7 F Pulse Rate 58 L 60 Respiratory Rate 20 Blood Pressure 162/74 H Pulse Oximetry 100 Oxygen Delivery Room Air 03/19/24 16:00 03/19/24 18:00 03/19/24 20:15 Temperature 97.8 F Pulse Rate 60 60 60 Respiratory Rate 20 Blood Pressure 92/67 L Pulse Oximetry 100 Oxygen Delivery 03/19/24 20:00 03/19/24 20:00 03/19/24 22:00 Temperature Pulse Rate 59 L 58 L Respiratory Rate Blood Pressure Pulse Oximetry Oxygen Delivery Room Air 03/20/24 00:33 03/20/24 00:00 03/20/24 00:00 Temperature 97.8 F Pulse Rate 63 60 Respiratory Rate 20 Blood Pressure 146/50 H Pulse Oximetry 97 Oxygen Delivery Room Air 03/20/24 04:30 03/20/24 02:00 03/20/24 04:00 Temperature 97.8 F Pulse Rate 60 61 59 L Respiratory Rate 20 Blood Pressure 149/58 H Pulse Oximetry 97 Oxygen Delivery 03/20/24 04:00 03/20/24 05:49 03/20/24 08:24 Temperature Pulse Rate 59 L 60 Respiratory Rate Blood Pressure Pulse Oximetry Oxygen Delivery Room Air 03/20/24 08:00 03/20/24 08:00 03/20/24 08:00 Temperature 97.9 F Pulse Rate 58 L 62 Respiratory Rate 18 Blood Pressure 147/57 H Pulse Oximetry 96 Oxygen Delivery Room Air 03/20/24 10:00 03/20/24 11:06 03/20/24 12:00 Temperature Pulse Rate 62 Respiratory Rate Blood Pressure Pulse Oximetry Oxygen Delivery Room Air Room Air 03/20/24 12:00 Temperature 97.6 F Pulse Rate 60 Respiratory Rate 20 Blood Pressure 164/63 H Pulse Oximetry 91 Oxygen Delivery Intake/Output Intake/Output: Intake & Output 03/17/24 03/18/24 03/19/24 03/20/24 23:59 23:59 23:59 23:59 Intake Total 2413.4 3954.4 2129.7 Output Total 950 1350 1150 Balance 1463.4 2604.4 979.7 Meds/Results Medications: Active Medications Generic Name Dose Route Start Last Admin Trade Name Freq PRN Reason Stop Dose Admin Acetaminophen 650 mg 03/18/24 02:38 Acetaminophen 325 Mg Tablet PO DAILY PRN Pain Al Hydrox/Mg Hydrox/Simethicone 30 ml 03/18/24 02:38 Mag Hydrox/Al Hydrox/Simeth 30 Ml Udc PO Q6H PRN Indigestion Amlodipine Besylate 2.5 mg 03/19/24 12:35 03/20/24 08:25 Amlodipine Besylate 2.5 Mg Tablet PO 2.5 mg QAM LINDA Administration Atenolol 50 mg 03/18/24 09:00 03/20/24 08:24 Atenolol 50 Mg Tablet PO 50 mg BID LINDA Administration Azithromycin 500 mg 03/18/24 21:00 03/19/24 21:01 Azithromycin 250 Mg Tablet PO 03/21/24 21:01 500 mg DAILY@2100 LINDA Administration Dextrose 12.5 gm 03/18/24 04:36 Dextrose 50% 25 Gm/50 Ml Syringe IV PUSH PRN PRN Hypoglycemia Protocol Glucagon 1 mg 03/18/24 04:36 Glucagon For Inj 1 Mg Vial IM PRN PRN Hypoglycemia Protocol Glucose 15 gm 03/18/24 04:36 Glucose Oral Gel 15 Gm Of Glucse In 37.5 Gm Tube PO PRN PRN Hypoglycemia Protocol Heparin Sodium (Porcine) 5,500 units 03/18/24 11:27 03/19/24 14:03 Heparin Sodium 5,000 Units/Ml Vial IV PUSH 5,500 units PRN PRN Administration aPTT less than 55 seconds Heparin Sodium (Porcine) 3,000 units 03/18/24 11:27 03/19/24 00:46 Heparin Sodium 5,000 Units/Ml Vial IV PUSH 3,000 units PRN PRN Administration aPTT 55 - 70 seconds Sodium Chloride 1,000 mls @ 75 mls/hr 03/18/24 02:40 03/20/24 08:22 Normal Saline Iv IV CONT 75 mls/hr .[id number] LINDA Administration Ceftriaxone Sodium 2 gm in 100 mls @ 200 mls/hr 03/18/24 20:00 03/19/24 21:55 Rocephin 2 Gm/Ns 100 Ml IVPB Infused Q24H LINDA Infusion Dextrose 1,000 mls @ 100 mls/hr 03/18/24 04:36 Dextrose 5% 1,000 Ml IVPB PRN PRN Hypoglycemia Protocol Heparin Sodium/Dextrose 25,000 units in 250 mls @ 16 mls/hr 03/18/24 11:30 03/20/24 13:48 Heparin Sodium/D5w 100 Units/Ml IV CONT 1,600 units/hr .[id number] LINDA 16 mls/hr Administration Protocol 1,600 UNITS/HR Ondansetron HCl 4 mg 03/18/24 02:41 Ondansetron Inj 4 Mg/2 Ml Vial IV PUSH Q6H PRN Nausea And Vomiting Perflutren Lipid Microsphere 0 ml 03/18/24 02:38 Perflutren Lipid Microspheres 1.5 Ml Vial Diluted To 10 Ml Total Volume IV PUSH 03/21/24 02:40 ONCE PRN adequate visualization Protocol Polyethylene Glycol 17 gm 03/18/24 02:38 Polyethylene Glycol 3350 17 Gm Powd.Pack PO QAM PRN Constipation Rivaroxaban 20 mg 03/18/24 17:00 Rivaroxaban 20 Mg Tablet PO DAILY@1700 LINDA Sodium Chloride 1 applic 03/19/24 21:00 03/19/24 21:02 Sodium Chloride 5% Ophth Oint 3.5 Gm Tube EACH EYE 1 applic HS LINDA Administration Sodium Chloride 1 drop 03/19/24 17:00 03/20/24 13:11 Sodium Chloride 5% Op Soln 15 Ml Btl EACH EYE 1 drop TID LINDA Administration Radiology Results: ITS Impressions Renal Ultrasound 03/18/24 12:20 IMPRESSION: 1. Moderate diffuse cortical atrophy at the left kidney. No hydronephrosis. 2. Bilateral renal cysts. Labs Labs: Laboratory Results - last 24 hr 03/18/24 03/18/24 03/19/24 13:01 17:37 16:02 WBC RBC Hgb Hct MCV MCH MCHC RDW Plt Count MPV Immature Gran % (Auto) Neut % (Auto) Lymph % (Auto) [place] % (Auto) Eos % (Auto) Baso % (Auto) Lymph # (Auto) [place] # (Auto) Eos # (Auto) Baso # (Auto) Abs Immat Gran (auto) Absolute Neuts (auto) Absolute Nucleated RBC Nucleated RBC % APTT Sodium Potassium Chloride Carbon Dioxide Anion Gap BUN Creatinine Estim Creat Clear Calc Estimated GFR Glucose POC Capillary Glucose 124 H Calcium Magnesium Total Bilirubin AST ALT Alkaline Phosphatase Total Protein Albumin 2.3 L Waizv-1-Cdgfemmwj 0.6 H Laifh-4-Yjjsgnibq 0.9 Angq-9-Fjnxdhpp 0.4 Tlec-4-Zxkzbajf 0.4 Gamma Globulins 0.7 L PEP Interpretation See note Urine Osmolality 249 DAVE Screen Positive A DAVE Titer 1:40 H DAVE Pattern Cytoplasmic A 03/19/24 03/19/24 03/19/24 16:43 19:55 20:09 WBC RBC Hgb Hct MCV MCH MCHC RDW Plt Count MPV Immature Gran % (Auto) Neut % (Auto) Lymph % (Auto) [place] % (Auto) Eos % (Auto) Baso % (Auto) Lymph # (Auto) [place] # (Auto) Eos # (Auto) Baso # (Auto) Abs Immat Gran (auto) Absolute Neuts (auto) Absolute Nucleated RBC Nucleated RBC % APTT 160.5 H* Sodium 124 L Potassium Chloride Carbon Dioxide Anion Gap BUN Creatinine Estim Creat Clear Calc Estimated GFR Glucose POC Capillary Glucose 120 H Calcium Magnesium Total Bilirubin AST ALT Alkaline Phosphatase Total Protein Albumin Jckce-9-Pkngpbbpx Mkazt-5-Iwwnseqtq Qsym-7-Hzeoanrg Wqdp-3-Ilbwpkij Gamma Globulins PEP Interpretation Urine Osmolality DAVE Screen DAVE Titer DAVE Pattern 03/20/24 03/20/24 03/20/24 04:36 07:36 10:32 WBC 14.0 H RBC 3.70 L Hgb 10.8 L Hct 31.6 L MCV 85.4 MCH 29.2 MCHC 34.2 RDW 14.1 Plt Count 275 MPV 9.7 Immature Gran % (Auto) 6.6 H Neut % (Auto) 73.4 H Lymph % (Auto) 8.9 L [place] % (Auto) 9.8 H Eos % (Auto) 0.7 Baso % (Auto) 0.6 Lymph # (Auto) 1.24 [place] # (Auto) 1.4 H Eos # (Auto) 0.1 Baso # (Auto) 0.1 Abs Immat Gran (auto) 0.92 H Absolute Neuts (auto) 10.3 H Absolute Nucleated RBC 0.000 Nucleated RBC % 0.0 APTT 96.8 H 72.2 H Sodium 126 L Potassium 3.8 Chloride 98 Carbon Dioxide 17 L Anion Gap 11 BUN 90 H Creatinine 4.40 H Estim Creat Clear Calc 10 Estimated GFR 10 L Glucose 107 POC Capillary Glucose 121 H Calcium 7.5 L Magnesium 1.9 Total Bilirubin 0.6 AST 30 ALT 20 Alkaline Phosphatase 203 H Total Protein 6.0 L Albumin 2.5 L Qoovs-0-Lbwogctda Mhzux-8-Rsoelhurh Nwfx-4-Ngviwmlm Doyq-0-Mdziwjvp Gamma Globulins PEP Interpretation Urine Osmolality DAVE Screen DAVE Titer DAVE Pattern 03/20/24 11:53 WBC RBC Hgb Hct MCV MCH MCHC RDW Plt Count MPV Immature Gran % (Auto) Neut % (Auto) Lymph % (Auto) [place] % (Auto) Eos % (Auto) Baso % (Auto) Lymph # (Auto) [place] # (Auto) Eos # (Auto) Baso # (Auto) Abs Immat Gran (auto) Absolute Neuts (auto) Absolute Nucleated RBC Nucleated RBC % APTT Sodium Potassium Chloride Carbon Dioxide Anion Gap BUN Creatinine Estim Creat Clear Calc Estimated GFR Glucose POC Capillary Glucose 141 H Calcium Magnesium Total Bilirubin AST ALT Alkaline Phosphatase Total Protein Albumin Vjrao-3-Xzsmyqvtt Lpuoy-1-Fwnbdumwo Wvau-0-Ngdhtomu Lips-9-Ajabxumk Gamma Globulins PEP Interpretation Urine Osmolality DAVE Screen DAVE Titer DAVE Pattern
[2024-03-20 15:19] LABS: Complement Total CH50 37 U/mL (31-60)
[2024-03-20 17:27] LABS: Glucose Point of Care 122 mg/dl (65-105)
[2024-03-20 20:08] LABS: Glucose Point of Care 111 mg/dl (65-105)
[2024-03-20 20:09] LABS: Creat 24 Hr 0.65 g/24 h (0.50-2.15); Pro/Creat Ratio 1120 mg/g creat (<150); Protein,total, 24 Hr Ur 728 mg/24 h (<150)
[2024-03-20] MEDS: cefTRIAXone 2 GM/NS 100 ML 2 GM/100 ML BAG IVPB (20:25)
[2024-03-20] MEDS: AZITHROMYCIN 250 MG TABLET 500 MG PO (20:26)
[2024-03-20] MEDS: SODIUM CHLORIDE 5% OPHTH OINT 3.5 GM TUBE 1 APPLIC EACH EYE (20:26)
[2024-03-20 21:14] LABS: Lactic Acid Reflex 0.8 mmol/L (0.7-2.0)
[2024-03-21] VITALS (23 sets, daily range): BP systolic 129–172; BP diastolic 47–64; PULSE 59–84; RESP 14–20; TEMP 36.4–37; O2SAT 96–100
[2024-03-21 00:19] LABS: Glucose Point of Care 108 mg/dl (65-105)
[2024-03-21 05:22] LABS: Hematocrit 32.2 % (37.0-47.0); Hemoglobin 10.9 g/dL (12.0-15.0); Mean Corpuscular HGB Conc 33.9 g/dl (32-36); Mean Corpuscular Hemoglobin 29.3 pg (26-34); Mean Corpuscular Volume 86.6 fl (80-100); Mean Platelet Volume 9.8 fl (7.4-10.4); Platelet Count Result 342 k/mm3 (150-375); Red Blood Count 3.72 M/mm3 (4.2-5.4); Red Cell Distribution Width 14.2 % (11.5-14.5); White Blood Count 14.7 K/mm3 (4.5-10.0)
[2024-03-21 05:35] LABS: Alanine Aminotransferase 20 U/L (6-35); Albumin Level 2.6 g/dL (3.5-5.1); Alkaline Phosphatase 210 U/L (38-126); Anion Gap 12 mmol/L (4-12); Aspartate Amino Transferase 33 U/L (14-36); Bilirubin,Total 0.4 mg/dL (0.2-1.3); Blood Urea Nitrogen 84 mg/dL (7-17); Calcium 8.1 mg/dL (8.4-10.2); Carbon Dioxide 18 mmol/L (22-30); Chloride 101 mmol/L (98-107); Estimated CRCL calculation 12 ml/min; Estimated Glomerular Filt Rate 11; Glucose 113 mg/dL (65-110); Magnesium 1.9 mg/dL (1.6-2.3); Potassium 3.9 mmol/L (3.4-5.0); Sodium 131 mmol/L (137-145)
[2024-03-21 05:44] LABS: Band Neutrophils Percent 4 % (0-6); Lymphocytes Absolute Manual 1.02 K/mm3 (1.1-4.5); Monocytes Absolute Manual 1.17 K/mm3 (0.1-0.90); Monocytes Percent Manual 8 % (3-9); Neutrophils Absolute Manual 12.49 K/mm3 (1.7-7.2); Neutrophils Percent Manual 81 % (46-73); Total Cells Counted 100
[2024-03-21 05:45] LABS: Platelet Estimate Adequate (Adequate)
[2024-03-21 05:46] LABS: Anisocytosis 1+; Schistocytes None Seen
--- NOTE | 2024-03-21 05:55 | WPDHPUPDATE1 ---
History and Physical Update Update Date/Time: 03/21/24 05:55 History and Physical has been reviewed, including an updated exam of the patient. There are NO changes in the patient's condition. Risks, benefits, and alternatives have been discussed and questions answered. Patient agrees to proceed with procedure.
[2024-03-21 06:01] LABS: Partial Thromboplastin Time 32.5 Seconds (22.3-36.8)
[2024-03-21 08:03] LABS: Glucose Point of Care 119 mg/dl (65-105)
--- NOTE | 2024-03-21 11:50 | P.PNNP_ITS ---
Progress Note: A&P Assessment and Plan (1) Acute renal failure: Code(s): N17.9 - Acute kidney failure, unspecified Status: Acute Assessment and Plan: * as noted by admission labs * evaluation to date noted: * fractional excretion of urea is pre renal * renal ultrasound shows moderate diffuse cortical atrophy of the left kidney; bilateral renal cysts * CT showed the bladder mass * CPK mildly elevated * serologies pending * creatinine has trended down with IVF hydration * suspect insult due to volume depletion/pre renal azotemia due to diminished oral intake coupled with infection (UTI/bacteremia) * follow trend of repeat labs and UOP * continue supportive therapy (2) Chronic kidney disease, stage 3b: Code(s): N18.32 - Chronic kidney disease, stage 3b Status: Acute Assessment and Plan: * baseline creatinine runs ~ 1.0 - 1.4mg/dl * follow-up on pending testing * suspect due to HTN, vascular disease and age-related change (3) Hyponatremia: Code(s): E87.1 - Hypo-osmolality and hyponatremia Status: Inactive Assessment and Plan: * slow improvement noted * only real intervention has been IVFs * evaluation noted: * urine sodium low * TSH and cortisol okay * serum/urine osmo and protein electrophoresis pending * noted bladder mass * chlorthalidone use * follow trend of sodium (4) Urinary tract infection: Code(s): N39.0 - Urinary tract infection, site not specified Status: Acute Assessment and Plan: * urine and blood culture with GNB * on antibiotics * follow repeat cultures (5) HTN (hypertension): Code(s): I10 - Essential (primary) hypertension Status: Acute Assessment and Plan: * reasonable control * follow trend on hemodynamics (6) Bladder mass: Code(s): N32.89 - Other specified disorders of bladder Status: Acute Assessment and Plan: * as noted by admission imaging * Urology following * likely intervention today by Urology Will continue to follow. Subjective Date/time seen: 03/21/24 11:50 Interval history: Follow-up for acute kidney injury/acute renal failure. Renal function/creatinine as well as sodium level continue to improve with ongoing therapy/interventions to date; noted plan for cystoscopy later this afternoon for further evaluation of bladder mass; no apparent distress noted at the time of my visit. Exam Narrative: General: elderly but WD/WN female in [facility]: normal S1 and S2; no rub Lungs: clear to auscultation Abdomen: soft, nontender, nondistended, positive bowel sounds Extremities: no cyanosis or clubbing; no edema Skin: warm and intact Objective Data Vital Signs Vital Signs: Vital Signs Temp Pulse Resp BP Pulse Ox O2 Del Method O2 Flow Rate 03/21/24 11:00 63 Room Air 03/21/24 10:00 60 03/21/24 15:38 97.6 F 60 18 144/51 H 97 03/21/24 14:45 62 16 152/59 H 100 Room Air 03/21/24 14:30 62 16 152/57 H 99 Room Air 03/21/24 14:15 59 L 14 148/56 H 98 Room Air 03/21/24 14:00 62 18 169/61 H 100 Simple Face Mask 8 03/21/24 13:49 97.8 F 62 14 149/64 H 100 Trach Collar 8 03/21/24 11:37 97.9 F 60 20 153/63 H 98 Intake/Output Intake/Output: Intake & Output 03/19/24 03/20/24 03/21/24 03/22/24 23:59 23:59 23:59 23:59 Intake Total 3954.4 3631.9 1352 1550 Output Total 1350 3250 2785 900 Balance 2604.4 381.9 -1433 650 Meds/Results Medications: Active Medications Generic Name Dose Route Start Last Admin Trade Name Freq PRN Reason Stop Dose Admin Acetaminophen 650 mg 03/18/24 02:38 Acetaminophen 325 Mg Tablet PO DAILY PRN Pain Al Hydrox/Mg Hydrox/Simethicone 30 ml 03/18/24 02:38 Mag Hydrox/Al Hydrox/Simeth 30 Ml Udc PO Q6H PRN Indigestion Amlodipine Besylate 2.5 mg 03/19/24 12:35 03/21/24 17:31 Amlodipine Besylate 2.5 Mg Tablet PO 2.5 mg QAM LINDA Administration Atenolol 50 mg 03/18/24 09:00 03/21/24 19:27 Atenolol 50 Mg Tablet PO Not Given BID LINDA Dextrose 12.5 gm 03/18/24 04:36 Dextrose 50% 25 Gm/50 Ml Syringe IV PUSH PRN PRN Hypoglycemia Protocol Glucagon 1 mg 03/18/24 04:36 Glucagon For Inj 1 Mg Vial IM PRN PRN Hypoglycemia Protocol Glucose 15 gm 03/18/24 04:36 Glucose Oral Gel 15 Gm Of Glucse In 37.5 Gm Tube PO PRN PRN Hypoglycemia Protocol Heparin Sodium (Porcine) 5,500 units 03/22/24 02:00 Heparin Sodium 5,000 Units/Ml Vial IV PUSH PRN PRN aPTT less than 55 seconds Heparin Sodium (Porcine) 3,000 units 03/22/24 00:54 Heparin Sodium 5,000 Units/Ml Vial IV PUSH PRN PRN aPTT 55 - 70 seconds Hydralazine HCl 10 mg 03/20/24 14:18 Hydralazine Hcl 20 Mg/Ml Vial IV PUSH Q8H PRN Blood Pressure - High Sodium Chloride 1,000 mls @ 75 mls/hr 03/18/24 02:40 03/22/24 07:17 Normal Saline Iv IV CONT 75 mls/hr .[id number] LINDA Administration Ceftriaxone Sodium 2 gm in 100 mls @ 200 mls/hr 03/18/24 20:00 03/21/24 20:26 Rocephin 2 Gm/Ns 100 Ml IVPB 200 mls/hr Q24H LINDA Administration Dextrose 1,000 mls @ 100 mls/hr 03/18/24 04:36 Dextrose 5% 1,000 Ml IVPB PRN PRN Hypoglycemia Protocol Heparin Sodium/Dextrose 25,000 units in 250 mls @ 13 mls/hr 03/22/24 02:00 03/22/24 02:25 Heparin Sodium/D5w 100 Units/Ml IV CONT 1,300 units/hr .[id number] LINDA 13 mls/hr Administration Protocol 1,300 UNITS/HR Ondansetron HCl 4 mg 03/18/24 02:41 Ondansetron Inj 4 Mg/2 Ml Vial IV PUSH Q6H PRN Nausea And Vomiting Polyethylene Glycol 17 gm 03/18/24 02:38 Polyethylene Glycol 3350 17 Gm Powd.Pack PO QAM PRN Constipation Rivaroxaban 20 mg 03/18/24 17:00 Rivaroxaban 20 Mg Tablet PO DAILY@1700 ILNDA Sodium Chloride 1 applic 03/19/24 21:00 03/21/24 22:00 Sodium Chloride 5% Ophth Oint 3.5 Gm Tube EACH EYE 1 applic HS LINDA Administration Sodium Chloride 1 drop 03/19/24 17:00 03/21/24 19:27 Sodium Chloride 5% Op Soln 15 Ml Btl EACH EYE Not Given TID LINDA Radiology Results: ITS Impressions Renal Ultrasound 03/18/24 12:20 IMPRESSION: 1. Moderate diffuse cortical atrophy at the left kidney. No hydronephrosis. 2. Bilateral renal cysts. Retrograde Pyelogram 03/21/24 15:32 IMPRESSION: 1. Normal bilateral retrograde pyelograms. Labs Labs: Laboratory Results - last 24 hr 03/21/24 04:52 WBC 14.7 H Hgb 10.9 L Hct 32.2 L Plt Count 342 Sodium 131 L Potassium 3.9 Chloride 101 Carbon Dioxide 18 L Anion Gap 12 BUN 84 H Creatinine 3.90 H Estim Creat Clear Calc 12 Estimated GFR 11 L Glucose 113 H Calcium 8.1 L Magnesium 1.9 Total Bilirubin 0.4 AST 33 ALT 20 Alkaline Phosphatase 210 H Total Protein 6.0 L Albumin 2.6 L
[2024-03-21 11:56] LABS: Glucose Point of Care 111 mg/dl (65-105)
[2024-03-21] MEDS: LACTATED RINGERS 1,000 ML 30 ML IV CONT (12:45)
--- NOTE | 2024-03-21 12:51 | P.PNAN_ITS ---
Anes - Initial Pre Proc Eval Procedure: Operation Date: 03/21/24 13:30 Proposed Procedures p Cystoscopy,Bilateral Retrograde Pyelogram - Kai Garcia MD s Possible Trans Urethral Resection Bladder Tumor - Kai Garcia MD Date/Time: 03/21/24 12:51 Surgeon: Kennedy Sierra MD Pre Op Diagnosis: Acute renal failure Patient Data Age: 83 Gender: F Height: 1.7 m Weight: 94.3 kg Last Vital Signs Temp 36.6 C 03/21/24 11:37 Pulse 60 03/21/24 11:37 Resp 20 03/21/24 11:37 BP 153/63 H 03/21/24 11:37 Pulse Ox 98 03/21/24 11:37 O2 Del Method Room Air 03/21/24 08:06 Allergies Allergy/AdvReac Type Severity Reaction Status Date / Time diclofenac [Arthrotec 50] Allergy Intermediate Unknown Verified 03/17/24 15:11 Jvojxqy-KLR-HuJ Reductase Allergy Intermediate Unknown Verified 03/17/24 15:11 Inhibitor [Uqlbsxw-Mhy-Fsz Reductase Inhibitor] Home Medications Medication Instructions Recorded Confirmed Type acetaminophen 650 mg 650 mg PO DAILY PRN Pain 08/06/19 03/18/24 History tablet,extended release (Arthritis Pain Relief (acetaminophen) ER) loratadine 5 mg-pseudoephedrine ER 1 tablet PO DAILY PRN Allergic 08/06/19 03/18/24 History 120 mg tablet,extended Symptoms release,12hr (Claritin-D 12 Hour) jaafncdn-cfoh-supz 8 mg-folic 400 1 tablet PO DAILY 08/06/19 03/18/24 History mcg-K 50 mcg-lutein 300 mcg tablet (Multivitamin Women 50 Plus) rivaroxaban 20 mg tablet (Xarelto) 20 mg PO QPM 08/06/19 03/18/24 History sodium chloride 5 % eye ointment 1 applic EACH EYE HS 02/03/21 03/18/24 History (Romi 128) ascorbic acid (vitamin C) 500 mg 500 mg PO DAILY 11/13/23 03/18/24 History capsule omega 4-age-bxs-fish oil 300 1 cap PO DAILY 11/13/23 03/18/24 History mg-1,000 mg capsule (Fish Oil) vitamin E (dl, acetate) 450 mg 400 mg PO DAILY 11/13/23 03/18/24 History (1,000 unit) capsule atenolol 50 mg tablet 50 mg PO BID 03/17/24 03/18/24 History chlorthalidone 25 mg tablet 25 mg PO DAILY 03/17/24 03/18/24 History sodium chloride 5 % eye drops 1 drp EACH EYE TID 03/18/24 03/18/24 History vit C-vit X-mkmpzh-belbmcis capsule 1 cap PO DAILY 03/18/24 03/18/24 History Laboratory Tests 03/18/24 03/19/24 03/20/24 17:37 13:00 15:52 WBC RBC Hgb Hct MCV MCH MCHC RDW Plt Count MPV Immature Gran % (Auto) Neut % (Auto) Lymph % (Auto) [place] % (Auto) Eos % (Auto) Baso % (Auto) Lymph # (Auto) [place] # (Auto) Eos # (Auto) Baso # (Auto) Abs Immat Gran (auto) Absolute Neuts (auto) Absolute Nucleated RBC Total Counted Neutrophils % (Manual) Band Neutrophils % Lymphocytes % (Manual) Monocytes % (Manual) Nucleated RBC % Abs Neuts (Manual) Abs Lymphs (Manual) Abs Monocytes (Manual) Platelet Estimate Anisocytosis Schistocytes APTT Sodium Potassium Chloride Carbon Dioxide Anion Gap BUN Creatinine Estim Creat Clear Calc Estimated GFR Glucose POC Capillary Glucose 122 H mg/dl (65-105) Serum Osmolality 303 mOsm/kg (278-305) Lactic Acid Calcium Magnesium Total Bilirubin AST ALT Alkaline Phosphatase Total Protein Albumin U Protein 24 Hr Presump 728 H mg/24h (<150) Tot Complement (CH50) 37 U/mL (31-60) 03/20/24 03/20/24 03/21/24 20:06 20:54 00:12 WBC RBC Hgb Hct MCV MCH MCHC RDW Plt Count MPV Immature Gran % (Auto) Neut % (Auto) Lymph % (Auto) [place] % (Auto) Eos % (Auto) Baso % (Auto) Lymph # (Auto) [place] # (Auto) Eos # (Auto) Baso # (Auto) Abs Immat Gran (auto) Absolute Neuts (auto) Absolute Nucleated RBC Total Counted Neutrophils % (Manual) Band Neutrophils % Lymphocytes % (Manual) Monocytes % (Manual) Nucleated RBC % Abs Neuts (Manual) Abs Lymphs (Manual) Abs Monocytes (Manual) Platelet Estimate Anisocytosis Schistocytes APTT Sodium Potassium Chloride Carbon Dioxide Anion Gap BUN Creatinine Estim Creat Clear Calc Estimated GFR Glucose POC Capillary Glucose 111 H mg/dl 108 H mg/dl (65-105) (65-105) Serum Osmolality Lactic Acid 0.8 mmol/L (0.7-2.0) Calcium Magnesium Total Bilirubin AST ALT Alkaline Phosphatase Total Protein Albumin U Protein 24 Hr Presump Tot Complement (CH50) 03/21/24 03/21/24 03/21/24 04:52 07:51 11:42 WBC 14.7 H K/mm3 (4.5-10.0) RBC 3.72 L M/mm3 (4.2-5.4) Hgb 10.9 L g/dL (12.0-15.0) Hct 32.2 L % (37.0-47.0) MCV 86.6 fl (80-100) MCH 29.3 pg (26-34) MCHC 33.9 g/dl (32-36) RDW 14.2 % (11.5-14.5) Plt Count 342 k/mm3 (150-375) MPV 9.8 fl (7.4-10.4) Immature Gran % (Auto) Not Reportable Neut % (Auto) Not Reportable Lymph % (Auto) Not Reportable [place] % (Auto) Not Reportable Eos % (Auto) Not Reportable Baso % (Auto) Not Reportable Lymph # (Auto) Not Reportable [place] # (Auto) Not Reportable Eos # (Auto) Not Reportable Baso # (Auto) Not Reportable Abs Immat Gran (auto) Not Reportable Absolute Neuts (auto) Not Reportable Absolute Nucleated RBC Not Reportable Total Counted 100 Neutrophils % (Manual) 81 H % (46-73) Band Neutrophils % 4 % (0-6) Lymphocytes % (Manual) 7.0 L % (18-44) Monocytes % (Manual) 8 % (3-9) Nucleated RBC % Not Reportable Abs Neuts (Manual) 12.49 H K/mm3 (1.7-7.2) Abs Lymphs (Manual) 1.02 L K/mm3 (1.1-4.5) Abs Monocytes (Manual) 1.17 H K/mm3 (0.1-0.90) Platelet Estimate Adequate (Adequate) Anisocytosis 1+ Schistocytes None seen APTT 32.5 Seconds (22.3-36.8) Sodium 131 L mmol/L (137-145) Potassium 3.9 mmol/L (3.4-5.0) Chloride 101 mmol/L (98-107) Carbon Dioxide 18 L mmol/L (22-30) Anion Gap 12 mmol/L (4-12) BUN 84 H mg/dL (7-17) Creatinine 3.90 H mg/dL (0.7-1.0) Estim Creat Clear Calc 12 ml/min Estimated GFR 11 L (59 - ) Glucose 113 H mg/dL (65-110) POC Capillary Glucose 119 H mg/dl 111 H mg/dl (65-105) (65-105) Serum Osmolality Lactic Acid Calcium 8.1 L mg/dL (8.4-10.2) Magnesium 1.9 mg/dL (1.6-2.3) Total Bilirubin 0.4 mg/dL (0.2-1.3) AST 33 U/L (14-36) ALT 20 U/L (6-35) Alkaline Phosphatase 210 H U/L (38-126) Total Protein 6.0 L g/dL (6.3-8.2) Albumin 2.6 L g/dL (3.5-5.1) U Protein 24 Hr Presump Tot Complement (CH50) Patient hx anesthesia problems: none Family hx anesthesia problems: none Results Review: All pre-operative results and documents have been reviewed as part of the pre- operative evaluation. [facility], LAT[facility] Past Medical History Medical History (Updated 03/21/24 @ 12:52 by William Thakkar MD) Acute renal failure DVT (deep venous thrombosis) HTN (hypertension) Hyperlipidemia Hyponatremia Hyponatremia Osteoarthritis knees Overweight Pulmonary embolism Surgical History Surgical History History of appendectomy 2002 Hx of hysterectomy 2002 Family History Family History Father Hypertension Family history of arthritis Other Family history of malignant neoplasm Social History Social History Smoking status: Never smoker Alcohol intake: never Substance use: never Substance use type: does not use Do You Feel Safe in your Home?: Yes Lack of Transportation: No Lack of Food: Never True Current Housing: I Have Housing Concerned About Future Housing: No Difficulty Paying Gas/Electric Bills: No Difficulty Paying for Meds: No Currently Unemployed: No Education: High School Diploma/GED Difficulty w/ Childcare or Family Care: No Spiritual care concerns: No Anes - Eval Final PreProcedure Day of Procedure 03/21/24 12:51 Patient weight: obese Heart: regular rate and rhythm Lungs: clear to auscultation Airway: Mallampati scale class II Neurological: alert and oriented Last oral intake: >/= 8 hours ASA classification: III Emergent: no Anesthetic plan: proceed Anesthesia type and monitoring: general LMA and standard monitoring Results Review: All pre-operative results and documents have been reviewed as part of the pre- operative evaluation. Informed Consent: The patient's anesthetic plan and its attendant risks and benefits were discussed with the patient/family/POA. Questions were solicited and answers provided to the satisfaction of the patient/family/POA.
--- NOTE | 2024-03-21 13:16 | PCPTNOTE ---
Attempted to see patient for PT, however patient was out of the room for procedure.
[2024-03-21] MEDS: LIDOCAINE HCL 2% GEL UROJET 10 ML PKG MUCOUS MEM (13:20)
--- NOTE | 2024-03-21 13:56 | P.OP_ITS ---
Procedure Note - Detailed Date of Procedure 03/21/24 Pre-op Diagnosis Hematuria, possible bladder mass Post-op Diagnosis Same Procedure Performed Cystoscopy, bilateral retrograde pyelography, TURBT ( medium, 3 cm) Surgeon Kai Garcia MD Anesthesia General Description of Procedure patient is brought to the operative suite where she is prepped draped in routine sterile fashion while in dorsal lithotomy position after the uneventful induction of a general LMA anesthetic. Cystoscopy was undertaken with a 21 F rigid cystoscope. Bladder neck and urethra endoscopically normal. 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 The remainder the bladder mucosa is perfectly normal. Eight F bulb-tipped catheter was used to obtain bilateral retrograde pyelograms. Her right upper calices appear depressed likely from some compe nsatory hypertrophy of her right kidney. There was no apparent filling defects or points of obstruction. Left retrograde pyelogram was perfectly normal. There was no additional intravesical neoplasm and no foreign bodies. The right ureteral orifice and left ureteral orifice were normal and preserved throughout the remainder this procedure. Using a 24 F resectoscope I resected this neoplasm in its entirety with an attempt made to include detrusor muscle for pathological evaluation of invasion. The base and periphery was cauterized. Again this was done with care to avoid injury to the left ureteral orifice. All chips were removed. Resectoscope was removed. Urine Output 550 Drains Yes Pathology Yes Complications No immediate complications Condition Stable Disposition PACU
--- NOTE | 2024-03-21 15:34 | PM.IMPN ---
Progress Note: A&P Assessment and Plan (1) Acute renal failure: Code(s): N17.9 - Acute kidney failure, unspecified Status: Inactive (2) Urinary tract infection: Code(s): N39.0 - Urinary tract infection, site not specified Status: Acute (3) Bladder mass: Code(s): N32.89 - Other specified disorders of bladder Status: Acute Plan # MATTHEW -Abd/Pelvis CT : Left renal atrophy. No hydronephrosis.Cystitis versus urinary bladder wall thickening from incomplete distention.Small volume pelvic ascites.1.5 cm bladder mass, recommend urology referral. -Urology evaluated possible cystoscopy -Cr 5.50 -->3.9( Baseline 1.30),GFR 7 BUN 99 -US renal showed diffuse cortical atrophy 24 hr urine for immunofixation -Hold Nephrotoxic drugs -Chlorthalidone on hold continue IVF and nephrology following Bladder mass Urology planning for Cystoscopy with TURP today Urology following # Hyponatremia -Na 131, today -Chlorthalidone on hold -Dehydration contribution -NaCl @ 75ml/hr -fractional excretion of urea -CPK , serology and immunofixation. -Nephrology following #UTI/Urosepsis with E coli bacteremia Blood and urine cultures positive for E coli continue Rocephin and monitor repeat cultures Possible pneumonia CXR showed consolidation vs atelectasis Continue Rocephin and Azithromycin monitor #Hypercoagulable state -Heparin drip -Xarelto on hold due to possible cystoscopy -Not required a phlebotomy in the last year. -Follows up with Dr. Arnold DVT prophylaxis on Heparin infusion Subjective Date/time seen: 03/21/24 15:34 Interval history: Comfortable at bedside today and noted much improvement today Review of Systems Review of Systems: All systems reviewed & are unremarkable except as noted in HPI and below Exam Const: General: no acute distress Resp: Effort & Inspection: normal respiratory effort GI: Inspection: non-distended Auscultation: normal bowel sounds Objective Data Vital Signs Vital Signs: Vital Signs - 24 hr 03/20/24 16:00 03/20/24 16:00 03/20/24 16:43 Temperature Pulse Rate 57 L 63 Respiratory Rate Blood Pressure Pulse Oximetry Oxygen Delivery Room Air Oxygen Flow Rate 03/20/24 16:00 03/20/24 18:00 03/20/24 18:35 Temperature 97.5 F L Pulse Rate 57 L 71 Respiratory Rate 24 H 20 Blood Pressure 160/64 H Pulse Oximetry 100 Oxygen Delivery Oxygen Flow Rate 03/20/24 20:00 03/20/24 20:00 03/20/24 20:00 Temperature 97.9 F Pulse Rate 61 75 Respiratory Rate 16 Blood Pressure 166/63 H Pulse Oximetry 95 Oxygen Delivery Room Air Oxygen Flow Rate 03/20/24 21:52 03/20/24 22:00 03/21/24 00:00 Temperature 98 F Pulse Rate 63 65 Respiratory Rate 16 Blood Pressure 150/60 H 167/56 H Pulse Oximetry 98 Oxygen Delivery Oxygen Flow Rate 03/21/24 01:15 03/21/24 00:00 03/21/24 00:00 Temperature Pulse Rate 64 Respiratory Rate Blood Pressure 150/58 H Pulse Oximetry Oxygen Delivery Room Air Oxygen Flow Rate 03/21/24 02:00 03/21/24 04:00 03/21/24 04:00 Temperature Pulse Rate 67 66 Respiratory Rate Blood Pressure Pulse Oximetry Oxygen Delivery Room Air Oxygen Flow Rate 03/21/24 05:00 03/21/24 07:52 03/21/24 08:06 Temperature 98.3 F 98.3 F Pulse Rate 84 60 Respiratory Rate 16 20 Blood Pressure 129/47 L 143/49 H Pulse Oximetry 96 97 Oxygen Delivery Room Air Oxygen Flow Rate 03/21/24 11:37 03/21/24 13:49 03/21/24 14:00 Temperature 97.9 F 97.8 F Pulse Rate 60 62 62 Respiratory Rate 20 14 18 Blood Pressure 153/63 H 149/64 H 169/61 H Pulse Oximetry 98 100 100 Oxygen Delivery Trach Collar Simple Face Mask Oxygen Flow Rate 8 8 03/21/24 14:15 03/21/24 14:30 03/21/24 14:45 Temperature Pulse Rate 59 L 62 62 Respiratory Rate 14 16 16 Blood Pressure 148/56 H 152/57 H 152/59 H Pulse Oximetry 98 99 100 Oxygen Delivery Room Air Room Air Room Air Oxygen Flow Rate Intake/Output Intake/Output: Intake & Output 03/18/24 03/19/24 03/20/24 03/21/24 23:59 23:59 23:59 23:59 Intake Total 2413.4 3954.4 3531.9 112 Output Total 950 1350 3250 2460 Balance 1463.4 2604.4 134.8 -9156 Meds/Results Medications: Active Medications Generic Name Dose Route Start Last Admin Trade Name Freq PRN Reason Stop Dose Admin Acetaminophen 650 mg 03/18/24 02:38 Acetaminophen 325 Mg Tablet PO DAILY PRN Pain Al Hydrox/Mg Hydrox/Simethicone 30 ml 03/18/24 02:38 Mag Hydrox/Al Hydrox/Simeth 30 Ml Udc PO Q6H PRN Indigestion Amlodipine Besylate 2.5 mg 03/19/24 12:35 03/20/24 08:25 Amlodipine Besylate 2.5 Mg Tablet PO 2.5 mg QAM LINDA Administration Atenolol 50 mg 03/18/24 09:00 03/20/24 16:43 Atenolol 50 Mg Tablet PO 50 mg BID LINDA Administration Azithromycin 500 mg 03/18/24 21:00 03/20/24 20:26 Azithromycin 250 Mg Tablet PO 03/21/24 21:01 500 mg DAILY@2100 LINDA Administration Dextrose 12.5 gm 03/18/24 04:36 Dextrose 50% 25 Gm/50 Ml Syringe IV PUSH PRN PRN Hypoglycemia Protocol Glucagon 1 mg 03/18/24 04:36 Glucagon For Inj 1 Mg Vial IM PRN PRN Hypoglycemia Protocol Glucose 15 gm 03/18/24 04:36 Glucose Oral Gel 15 Gm Of Glucse In 37.5 Gm Tube PO PRN PRN Hypoglycemia Protocol Heparin Sodium (Porcine) 5,500 units 03/18/24 11:27 03/19/24 14:03 Heparin Sodium 5,000 Units/Ml Vial IV PUSH 5,500 units PRN PRN Administration aPTT less than 55 seconds Heparin Sodium (Porcine) 3,000 units 03/18/24 11:27 03/19/24 00:46 Heparin Sodium 5,000 Units/Ml Vial IV PUSH 3,000 units PRN PRN Administration aPTT 55 - 70 seconds Hydralazine HCl 10 mg 03/20/24 14:18 Hydralazine Hcl 20 Mg/Ml Vial IV PUSH Q8H PRN Blood Pressure - High Sodium Chloride 1,000 mls @ 75 mls/hr 03/18/24 02:40 03/20/24 20:26 Normal Saline Iv IV CONT 75 mls/hr .[id number] LINDA Administration Ceftriaxone Sodium 2 gm in 100 mls @ 200 mls/hr 03/18/24 20:00 03/20/24 20:25 Rocephin 2 Gm/Ns 100 Ml IVPB 200 mls/hr Q24H LINDA Administration Dextrose 1,000 mls @ 100 mls/hr 03/18/24 04:36 Dextrose 5% 1,000 Ml IVPB PRN PRN Hypoglycemia Protocol Heparin Sodium/Dextrose 25,000 units in 250 mls @ 0 mls/hr 03/18/24 11:30 03/21/24 00:00 Heparin Sodium/D5w 100 Units/Ml IV CONT 0 units/hr .Q0M LINDA 0 mls/hr Titration Protocol Ondansetron HCl 4 mg 03/18/24 02:41 Ondansetron Inj 4 Mg/2 Ml Vial IV PUSH Q6H PRN Nausea And Vomiting Polyethylene Glycol 17 gm 03/18/24 02:38 Polyethylene Glycol 3350 17 Gm Powd.Pack PO QAM PRN Constipation Rivaroxaban 20 mg 03/18/24 17:00 Rivaroxaban 20 Mg Tablet PO DAILY@1700 LINDA Sodium Chloride 1 applic 03/19/24 21:00 03/20/24 20:26 Sodium Chloride 5% Ophth Oint 3.5 Gm Tube EACH EYE 1 applic HS LINDA Administration Sodium Chloride 1 drop 03/19/24 17:00 03/20/24 16:43 Sodium Chloride 5% Op Soln 15 Ml Btl EACH EYE 1 drop TID LINDA Administration Radiology Results: ITS Impressions Renal Ultrasound 03/18/24 12:20 IMPRESSION: 1. Moderate diffuse cortical atrophy at the left kidney. No hydronephrosis. 2. Bilateral renal cysts. Labs Labs: Laboratory Results - last 24 hr 03/18/24 03/19/24 03/20/24 17:37 13:00 15:52 WBC RBC Hgb Hct MCV MCH MCHC RDW Plt Count MPV Immature Gran % (Auto) Neut % (Auto) Lymph % (Auto) [place] % (Auto) Eos % (Auto) Baso % (Auto) Lymph # (Auto) [place] # (Auto) Eos # (Auto) Baso # (Auto) Abs Immat Gran (auto) Absolute Neuts (auto) Absolute Nucleated RBC Total Counted Neutrophils % (Manual) Band Neutrophils % Lymphocytes % (Manual) Monocytes % (Manual) Nucleated RBC % Abs Neuts (Manual) Abs Lymphs (Manual) Abs Monocytes (Manual) Platelet Estimate Anisocytosis Schistocytes APTT Sodium Potassium Chloride Carbon Dioxide Anion Gap BUN Creatinine Estim Creat Clear Calc Estimated GFR Glucose POC Capillary Glucose 122 H Serum Osmolality 303 Lactic Acid Calcium Magnesium Total Bilirubin AST ALT Alkaline Phosphatase Total Protein Albumin U Protein 24 Hr Presump 728 H 03/20/24 03/20/24 03/21/24 20:06 20:54 00:12 WBC RBC Hgb Hct MCV MCH MCHC RDW Plt Count MPV Immature Gran % (Auto) Neut % (Auto) Lymph % (Auto) [place] % (Auto) Eos % (Auto) Baso % (Auto) Lymph # (Auto) [place] # (Auto) Eos # (Auto) Baso # (Auto) Abs Immat Gran (auto) Absolute Neuts (auto) Absolute Nucleated RBC Total Counted Neutrophils % (Manual) Band Neutrophils % Lymphocytes % (Manual) Monocytes % (Manual) Nucleated RBC % Abs Neuts (Manual) Abs Lymphs (Manual) Abs Monocytes (Manual) Platelet Estimate Anisocytosis Schistocytes APTT Sodium Potassium Chloride Carbon Dioxide Anion Gap BUN Creatinine Estim Creat Clear Calc Estimated GFR Glucose POC Capillary Glucose 111 H 108 H Serum Osmolality Lactic Acid 0.8 Calcium Magnesium Total Bilirubin AST ALT Alkaline Phosphatase Total Protein Albumin U Protein 24 Hr Presump 03/21/24 03/21/24 03/21/24 04:52 07:51 11:42 WBC 14.7 H RBC 3.72 L Hgb 10.9 L Hct 32.2 L MCV 86.6 MCH 29.3 MCHC 33.9 RDW 14.2 Plt Count 342 MPV 9.8 Immature Gran % (Auto) Not Reportable Neut % (Auto) Not Reportable Lymph % (Auto) Not Reportable [place] % (Auto) Not Reportable Eos % (Auto) Not Reportable Baso % (Auto) Not Reportable Lymph # (Auto) Not Reportable [place] # (Auto) Not Reportable Eos # (Auto) Not Reportable Baso # (Auto) Not Reportable Abs Immat Gran (auto) Not Reportable Absolute Neuts (auto) Not Reportable Absolute Nucleated RBC Not Reportable Total Counted 100 Neutrophils % (Manual) 81 H Band Neutrophils % 4 Lymphocytes % (Manual) 7.0 L Monocytes % (Manual) 8 Nucleated RBC % Not Reportable Abs Neuts (Manual) 12.49 H Abs Lymphs (Manual) 1.02 L Abs Monocytes (Manual) 1.17 H Platelet Estimate Adequate Anisocytosis 1+ Schistocytes None seen APTT 32.5 Sodium 131 L Potassium 3.9 Chloride 101 Carbon Dioxide 18 L Anion Gap 12 BUN 84 H Creatinine 3.90 H Estim Creat Clear Calc 12 Estimated GFR 11 L Glucose 113 H POC Capillary Glucose 119 H 111 H Serum Osmolality Lactic Acid Calcium 8.1 L Magnesium 1.9 Total Bilirubin 0.4 AST 33 ALT 20 Alkaline Phosphatase 210 H Total Protein 6.0 L Albumin 2.6 L U Protein 24 Hr Presump
[2024-03-21 16:02] LABS: Glucose Point of Care 109 mg/dl (65-105)
--- NOTE | 2024-03-21 16:20 | PC.NURSE ---
Pt back in room after cystoscopy. Drowsy, but oriented. Following commands appropriately. No pain at this time. Discussed need for anticoagulation with Dr. Garcia. Order received to restart Heparin protocol at 0200, 12 hours after procedure.
[2024-03-21] MEDS: SODIUM CHLORIDE 5% OP SOLN 15 ML BTL 1 DROP EACH EYE ×2 (17:15→17:36)
[2024-03-21] MEDS: amLODIPine BESYLATE 2.5 MG TABLET PO (17:31)
[2024-03-21] MEDS: atenoloL 50 MG TABLET PO (17:31)
[2024-03-21] MEDS: SODIUM CHLORIDE 0.9% IV 1,000 ML 75 ML IV CONT (17:36)
[2024-03-21 19:55] LABS: Basophils Absolute Auto 0.1 K/mm3 (0.0-0.1); Basophils Percent Auto 0.6 % (0.2-1.2); Hematocrit 34.2 % (37.0-47.0); Hemoglobin 11.6 g/dL (12.0-15.0); Immature Granulocyte Absolute 0.89 K/mm3 (0.00-0.031); Immature Granulocyte Percent A 7.6 % (0-0.5); Mean Corpuscular HGB Conc 33.9 g/dl (32-36); Mean Corpuscular Hemoglobin 29.9 pg (26-34); Mean Corpuscular Volume 88.1 fl (80-100); Mean Platelet Volume 9.4 fl (7.4-10.4); Monocytes Absolute Auto 0.1 K/mm3 (0.1-0.6); Monocytes Percent Auto 0.9 % (2.6-8.5); Neutrophils Percent Auto 84.9 % (45.5-73.1); Platelet Count Result 346 k/mm3 (150-375); Red Blood Count 3.88 M/mm3 (4.2-5.4); Red Cell Distribution Width 14.5 % (11.5-14.5); White Blood Count 11.7 K/mm3 (4.5-10.0)
[2024-03-21 20:00] LABS: Glucose Point of Care 157 mg/dl (65-105)
[2024-03-21 20:16] LABS: INR 1.1; Prothrombin Time 14.9 Seconds (11.1-14.7)
[2024-03-21] MEDS: cefTRIAXone 2 GM/NS 100 ML 2 GM/100 ML BAG IVPB (20:26)
[2024-03-21] MEDS: AZITHROMYCIN 250 MG TABLET 500 MG PO (20:32)
[2024-03-21 21:53] LABS: Immunofixation, Serum Normal pattern.
[2024-03-21] MEDS: SODIUM CHLORIDE 5% OPHTH OINT 3.5 GM TUBE 1 APPLIC EACH EYE (22:00)
[2024-03-22] VITALS (14 sets, daily range): BP systolic 149–175; BP diastolic 50–66; PULSE 58–84; RESP 18–20; TEMP 36.4–36.9; O2SAT 93–97
[2024-03-22] MEDS: HEPARIN SOD/D5W 100 UNITS/ML 25,000 UNITS/250 ML BAG 13 UNITS IV CONT (02:25)
[2024-03-22 03:28] LABS: Partial Thromboplastin Time 26.4 Seconds (22.3-36.8)
[2024-03-22] MEDS: SODIUM CHLORIDE 0.9% IV 1,000 ML 75 ML IV CONT ×2 (07:17→17:26)
[2024-03-22 07:51] LABS: Glucose Point of Care 168 mg/dl (65-105)
[2024-03-22 08:27] LABS: Basophils Absolute Auto 0.1 K/mm3 (0.0-0.1); Basophils Percent Auto 0.6 % (0.2-1.2); Hematocrit 34.5 % (37.0-47.0); Hemoglobin 11.3 g/dL (12.0-15.0); Immature Granulocyte Absolute 0.98 K/mm3 (0.00-0.031); Immature Granulocyte Percent A 6.9 % (0-0.5); Lymphocytes Absolute Auto 0.92 K/mm3 (0.9-3.2); Lymphocytes Percent Auto 6.5 % (18.3-44.2); Mean Corpuscular HGB Conc 32.8 g/dl (32-36); Mean Corpuscular Hemoglobin 29.4 pg (26-34); Mean Corpuscular Volume 89.6 fl (80-100); Mean Platelet Volume 9.7 fl (7.4-10.4); Monocytes Absolute Auto 0.3 K/mm3 (0.1-0.6); Monocytes Percent Auto 2.2 % (2.6-8.5); Neutrophils Absolute Auto 11.9 K/mm3 (1.3-6.7); Neutrophils Percent Auto 83.8 % (45.5-73.1); Platelet Count Result 347 k/mm3 (150-375); Red Blood Count 3.85 M/mm3 (4.2-5.4); Red Cell Distribution Width 14.6 % (11.5-14.5); White Blood Count 14.2 K/mm3 (4.5-10.0)
[2024-03-22 08:36] LABS: Alanine Aminotransferase 23 U/L (6-35); Albumin Level 2.7 g/dL (3.5-5.1); Alkaline Phosphatase 212 U/L (38-126); Anion Gap 12 mmol/L (4-12); Aspartate Amino Transferase 36 U/L (14-36); Bilirubin,Total 0.4 mg/dL (0.2-1.3); Blood Urea Nitrogen 76 mg/dL (7-17); Calcium 8.4 mg/dL (8.4-10.2); Carbon Dioxide 17 mmol/L (22-30); Chloride 104 mmol/L (98-107); Estimated CRCL calculation 14 ml/min; Estimated Glomerular Filt Rate 14; Glucose 153 mg/dL (65-110); Magnesium 1.8 mg/dL (1.6-2.3); Potassium 4.3 mmol/L (3.4-5.0); Sodium 133 mmol/L (137-145)
[2024-03-22 08:48] LABS: Partial Thromboplastin Time 47.2 Seconds (22.3-36.8)
[2024-03-22] MEDS: HEPARIN SODIUM 5,000 UNITS/ML VIAL 5500 UNITS IV PUSH (09:35)
--- NOTE | 2024-03-22 09:35 | PCPTNOTE ---
Attempted to see patient for PT, however patient unable to be seen at this time due to patient about to get a bed bath with nursing.
[2024-03-22] MEDS: amLODIPine BESYLATE 2.5 MG TABLET PO (09:45)
[2024-03-22] MEDS: atenoloL 50 MG TABLET PO ×2 (09:45→17:37)
--- NOTE | 2024-03-22 09:47 | P.PNUR_ITS ---
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 yesterday and our TURBT procedure. * Will need surveillance cysto. in our office 3-months but should maybe f/u in 1-2 weeks to review pathology. * Ferreira out for voiding trial Subjective Subjective Date/Time Seen: 03/22/24 09:47 Interval history: Comfortable, tired but no c/o pain Review of Systems Cardiovascular: Cardiovascular: Denies chest pain, Denies lightheadedness, Denies palpitations and Denies dyspnea Respiratory: Respiratory: Denies dyspnea Gastrointestinal: Gastrointestinal: Denies diarrhea, Denies nausea and Denies vomiting Genitourinary: Genitourinary: Denies hematuria and Denies dysuria Endocrine: Endocrine: Denies palpitations Exam Const: General: no acute distress Resp: Effort & Inspection: normal respiratory effort GI: Inspection: non-distended GI Palp: No abdominal tenderness and No Guarding due to palpation present (GI) Auscultation: normal bowel sounds Objective Data Vital Signs Vital Signs: Vital Signs - 24 hr 03/21/24 11:37 03/21/24 13:49 03/21/24 14:00 Temperature 97.9 F 97.8 F Pulse Rate 60 62 62 Respiratory Rate 20 14 18 Blood Pressure 153/63 H 149/64 H 169/61 H Pulse Oximetry 98 100 100 Oxygen Delivery Trach Collar Simple Face Mask Oxygen Flow Rate 8 8 03/21/24 14:15 03/21/24 14:30 03/21/24 14:45 Temperature Pulse Rate 59 L 62 62 Respiratory Rate 14 16 16 Blood Pressure 148/56 H 152/57 H 152/59 H Pulse Oximetry 98 99 100 Oxygen Delivery Room Air Room Air Room Air Oxygen Flow Rate 03/21/24 15:38 03/21/24 10:00 03/21/24 12:00 Temperature 97.6 F Pulse Rate 60 60 63 Respiratory Rate 18 Blood Pressure 144/51 H Pulse Oximetry 97 Oxygen Delivery Oxygen Flow Rate 03/21/24 12:00 03/21/24 16:00 03/21/24 16:00 Temperature Pulse Rate 65 Respiratory Rate Blood Pressure Pulse Oximetry Oxygen Delivery Room Air Room Air Oxygen Flow Rate 03/21/24 17:31 03/21/24 18:00 03/21/24 20:03 Temperature 98.0 F Pulse Rate 61 83 66 Respiratory Rate 18 Blood Pressure 168/58 H Pulse Oximetry 96 Oxygen Delivery Oxygen Flow Rate 03/21/24 20:00 03/21/24 20:00 03/21/24 22:00 Temperature Pulse Rate 66 66 62 Respiratory Rate 18 Blood Pressure Pulse Oximetry 96 Oxygen Delivery Room Air Oxygen Flow Rate 03/21/24 23:38 03/22/24 00:00 03/22/24 04:57 Temperature 98.6 F 97.9 F Pulse Rate 61 61 58 L Respiratory Rate 18 18 20 Blood Pressure 172/58 H 149/56 H Pulse Oximetry 96 96 95 Oxygen Delivery Room Air Oxygen Flow Rate 03/22/24 04:00 03/22/24 00:00 03/22/24 02:00 Temperature Pulse Rate 58 L 66 59 L Respiratory Rate 20 Blood Pressure Pulse Oximetry 95 Oxygen Delivery Room Air Oxygen Flow Rate 03/22/24 04:00 03/22/24 06:00 03/22/24 07:30 Temperature 98.2 F Pulse Rate 59 L 61 58 L Respiratory Rate 20 Blood Pressure 162/52 H Pulse Oximetry 96 Oxygen Delivery Oxygen Flow Rate Intake/Output Intake/Output: Intake & Output 03/19/24 03/20/24 03/21/24 03/22/24 23:59 23:59 23:59 23:59 Intake Total 3954.4 3631.9 1352 1883.6 Output Total 1350 3250 2785 900 Balance 2604.4 381.9 -1433 983.6 Meds/Results Medications: Active Medications Generic Name Dose Route Start Last Admin Trade Name Freq PRN Reason Stop Dose Admin Acetaminophen 650 mg 03/18/24 02:38 Acetaminophen 325 Mg Tablet PO DAILY PRN Pain Al Hydrox/Mg Hydrox/Simethicone 30 ml 03/18/24 02:38 Mag Hydrox/Al Hydrox/Simeth 30 Ml Udc PO Q6H PRN Indigestion Amlodipine Besylate 2.5 mg 03/19/24 12:35 03/21/24 17:31 Amlodipine Besylate 2.5 Mg Tablet PO 2.5 mg QAM LINDA Administration Atenolol 50 mg 03/18/24 09:00 03/21/24 19:27 Atenolol 50 Mg Tablet PO Not Given BID LINDA Dextrose 12.5 gm 03/18/24 04:36 Dextrose 50% 25 Gm/50 Ml Syringe IV PUSH PRN PRN Hypoglycemia Protocol Glucagon 1 mg 03/18/24 04:36 Glucagon For Inj 1 Mg Vial IM PRN PRN Hypoglycemia Protocol Glucose 15 gm 03/18/24 04:36 Glucose Oral Gel 15 Gm Of Glucse In 37.5 Gm Tube PO PRN PRN Hypoglycemia Protocol Heparin Sodium (Porcine) 5,500 units 03/22/24 02:00 03/22/24 09:35 Heparin Sodium 5,000 Units/Ml Vial IV PUSH 5,500 units PRN PRN Administration aPTT less than 55 seconds Heparin Sodium (Porcine) 3,000 units 03/22/24 00:54 Heparin Sodium 5,000 Units/Ml Vial IV PUSH PRN PRN aPTT 55 - 70 seconds Hydralazine HCl 10 mg 03/20/24 14:18 Hydralazine Hcl 20 Mg/Ml Vial IV PUSH Q8H PRN Blood Pressure - High Sodium Chloride 1,000 mls @ 75 mls/hr 03/18/24 02:40 03/22/24 07:17 Normal Saline Iv IV CONT 75 mls/hr .[id number] LINDA Administration Ceftriaxone Sodium 2 gm in 100 mls @ 200 mls/hr 03/18/24 20:00 03/21/24 20:26 Rocephin 2 Gm/Ns 100 Ml IVPB 200 mls/hr Q24H LINDA Administration Dextrose 1,000 mls @ 100 mls/hr 03/18/24 04:36 Dextrose 5% 1,000 Ml IVPB PRN PRN Hypoglycemia Protocol Heparin Sodium/Dextrose 25,000 units in 250 mls @ 16 mls/hr 03/22/24 02:00 03/22/24 09:37 Heparin Sodium/D5w 100 Units/Ml IV CONT 1,600 units/hr .[id number] LINDA 16 mls/hr Titration Protocol 1,600 UNITS/HR Ondansetron HCl 4 mg 03/18/24 02:41 Ondansetron Inj 4 Mg/2 Ml Vial IV PUSH Q6H PRN Nausea And Vomiting Polyethylene Glycol 17 gm 03/18/24 02:38 Polyethylene Glycol 3350 17 Gm Powd.Pack PO QAM PRN Constipation Rivaroxaban 20 mg 03/18/24 17:00 Rivaroxaban 20 Mg Tablet PO DAILY@1700 [facility] Sodium Chloride 1 applic 03/19/24 21:00 03/21/24 22:00 Sodium Chloride 5% Ophth Oint 3.5 Gm Tube EACH EYE 1 applic HS [facility] Administration Sodium Chloride 1 drop 03/19/24 17:00 03/21/24 19:27 Sodium Chloride 5% Op Soln 15 Ml Btl EACH EYE Not Given TID [facility] Radiology Results: ITS Impressions Renal Ultrasound 03/18/24 12:20 IMPRESSION: 1. Moderate diffuse cortical atrophy at the left kidney. No hydronephrosis. 2. Bilateral renal cysts. Retrograde Pyelogram 03/21/24 15:32 IMPRESSION: 1. Normal bilateral retrograde pyelograms. Labs Labs: Laboratory Results - last 24 hr 03/18/24 03/21/24 03/21/24 17:37 11:42 15:42 WBC RBC Hgb Hct MCV MCH MCHC RDW Plt Count MPV Immature Gran % (Auto) Neut % (Auto) Lymph % (Auto) [place] % (Auto) Eos % (Auto) Baso % (Auto) Lymph # (Auto) [place] # (Auto) Eos # (Auto) Baso # (Auto) Abs Immat Gran (auto) Absolute Neuts (auto) Absolute Nucleated RBC Nucleated RBC % PT INR APTT Sodium Potassium Chloride Carbon Dioxide Anion Gap BUN Creatinine Estim Creat Clear Calc Estimated GFR Glucose POC Capillary Glucose 111 H 109 H Calcium Magnesium Total Bilirubin AST ALT Alkaline Phosphatase Total Protein Albumin Serum Immunofixation Normal pattern. 03/21/24 03/21/24 03/22/24 19:48 19:49 01:16 WBC 11.7 H RBC 3.88 L Hgb 11.6 L Hct 34.2 L MCV 88.1 MCH 29.9 MCHC 33.9 RDW 14.5 Plt Count 346 MPV 9.4 Immature Gran % (Auto) 7.6 H Neut % (Auto) 84.9 H Lymph % (Auto) 6.0 L [place] % (Auto) 0.9 L Eos % (Auto) 0.0 Baso % (Auto) 0.6 Lymph # (Auto) 0.70 L [place] # (Auto) 0.1 Eos # (Auto) 0.0 Baso # (Auto) 0.1 Abs Immat Gran (auto) 0.89 H Absolute Neuts (auto) 10.0 H Absolute Nucleated RBC 0.000 Nucleated RBC % 0.0 PT 14.9 H D INR 1.1 APTT 26.4 Sodium Potassium Chloride Carbon Dioxide Anion Gap BUN Creatinine Estim Creat Clear Calc Estimated GFR Glucose POC Capillary Glucose 157 H Calcium Magnesium Total Bilirubin AST ALT Alkaline Phosphatase Total Protein Albumin Serum Immunofixation 03/22/24 03/22/24 07:29 08:17 WBC 14.2 H RBC 3.85 L Hgb 11.3 L Hct 34.5 L MCV 89.6 MCH 29.4 MCHC 32.8 RDW 14.6 H Plt Count 347 MPV 9.7 Immature Gran % (Auto) 6.9 H Neut % (Auto) 83.8 H Lymph % (Auto) 6.5 L [place] % (Auto) 2.2 L Eos % (Auto) 0.0 Baso % (Auto) 0.6 Lymph # (Auto) 0.92 [place] # (Auto) 0.3 Eos # (Auto) 0.0 Baso # (Auto) 0.1 Abs Immat Gran (auto) 0.98 H Absolute Neuts (auto) 11.9 H Absolute Nucleated RBC 0.000 Nucleated RBC % 0.0 PT INR APTT 47.2 H Sodium 133 L Potassium 4.3 Chloride 104 Carbon Dioxide 17 L Anion Gap 12 BUN 76 H Creatinine 3.20 H Estim Creat Clear Calc 14 Estimated GFR 14 L Glucose 153 H POC Capillary Glucose 168 H Calcium 8.4 Magnesium 1.8 Total Bilirubin 0.4 AST 36 ALT 23 Alkaline Phosphatase 212 H Total Protein 6.0 L Albumin 2.7 L Serum Immunofixation
[2024-03-22] MEDS: SODIUM CHLORIDE 5% OP SOLN 15 ML BTL 1 DROP EACH EYE ×3 (09:50→17:39)
--- NOTE | 2024-03-22 11:21 | P.PNNP_ITS ---
Progress Note: A&P Assessment and Plan (1) Acute renal failure: Code(s): N17.9 - Acute kidney failure, unspecified Status: Acute Assessment and Plan: * as noted by admission labs * evaluation to date noted: * fractional excretion of urea is pre renal * renal ultrasound shows moderate diffuse cortical atrophy of the left kidney; bilateral renal cysts * CT showed the bladder mass * CPK mildly elevated * serologies pending * creatinine has trended down with IVF hydration * suspect insult due to volume depletion/pre renal azotemia due to diminished oral intake coupled with infection (UTI/bacteremia) * follow trend of repeat labs and UOP * continue supportive therapy (2) Chronic kidney disease, stage 3b: Code(s): N18.32 - Chronic kidney disease, stage 3b Status: Acute Assessment and Plan: * baseline creatinine runs ~ 1.0 - 1.4mg/dl * follow-up on pending testing * suspect due to HTN, vascular disease and age-related change (3) Hyponatremia: Code(s): E87.1 - Hypo-osmolality and hyponatremia Status: Inactive Assessment and Plan: * slow improvement noted * only real intervention has been IVFs * evaluation noted: * urine sodium low * TSH and cortisol okay * serum/urine osmo and protein electrophoresis pending * noted bladder mass * chlorthalidone use * follow trend of sodium (4) Urinary tract infection: Code(s): N39.0 - Urinary tract infection, site not specified Status: Acute Assessment and Plan: * urine and blood culture with GNB * on antibiotics * follow repeat cultures (5) HTN (hypertension): Code(s): I10 - Essential (primary) hypertension Status: Acute Assessment and Plan: * reasonable control * follow trend on hemodynamics (6) Bladder mass: Code(s): N32.89 - Other specified disorders of bladder Status: Acute Assessment and Plan: * as noted by admission imaging * Urology following * s/p cystoscopy, bilateral retrograde pyelography, and TURBT on 03/21 Will continue to follow. Subjective Date/time seen: 03/22/24 11:21 Interval history: Follow-up for acute kidney injury/acute renal failure. Status post cystoscopy, bilateral retrograde pyelography, and TURBT by Urology yesterdary aftrnoon; renal function/creatinine as well as sodium level continue to improve with ongoing therapy/interventions to date; no new issues or problems to report at this time. Exam Narrative: General: elderly but WD/WN female in NAD Heart: normal S1 and S2; no rub Lungs: clear to auscultation Abdomen: soft, nontender, nondistended, positive bowel sounds Extremities: no cyanosis or clubbing; no edema Skin: no rash Objective Data Vital Signs Vital Signs: Vital Signs Temp Pulse Resp BP Pulse Ox O2 Del Method 03/22/24 11:14 97.5 F L 61 20 175/66 H 97 03/22/24 10:00 66 03/22/24 08:00 63 03/22/24 09:45 84 03/22/24 07:30 98.2 F 58 L 20 162/52 H 96 03/22/24 06:00 61 03/22/24 04:00 59 L 03/22/24 02:00 59 L 03/22/24 00:00 66 03/22/24 04:00 58 L 20 95 Room Air 03/22/24 04:57 97.9 F 58 L 20 149/56 H 95 03/22/24 00:00 61 18 96 Room Air 03/21/24 23:38 98.6 F 61 18 172/58 H 96 03/21/24 22:00 62 03/21/24 20:00 66 03/21/24 20:00 66 18 96 Room Air 03/21/24 20:03 98.0 F 66 18 168/58 H 96 Intake/Output Intake/Output: Intake & Output 03/19/24 03/20/24 03/21/24 03/22/24 23:59 23:59 23:59 23:59 Intake Total 3954.4 3631.9 1352 3262.0 Output Total 1350 3250 2785 2075 Balance 2604.4 381.9 -1433 1187.0 Meds/Results Medications: Active Medications Generic Name Dose Route Start Last Admin Trade Name Freq PRN Reason Stop Dose Admin Acetaminophen 650 mg 03/18/24 02:38 Acetaminophen 325 Mg Tablet PO DAILY PRN Pain Al Hydrox/Mg Hydrox/Simethicone 30 ml 03/18/24 02:38 Mag Hydrox/Al Hydrox/Simeth 30 Ml Udc PO Q6H PRN Indigestion Amlodipine Besylate 2.5 mg 03/19/24 12:35 03/22/24 09:45 Amlodipine Besylate 2.5 Mg Tablet PO 2.5 mg QAM LINAD Administration Atenolol 50 mg 03/18/24 09:00 03/22/24 17:37 Atenolol 50 Mg Tablet PO 50 mg BID LINDA Administration Dextrose 12.5 gm 03/18/24 04:36 Dextrose 50% 25 Gm/50 Ml Syringe IV PUSH PRN PRN Hypoglycemia Protocol Glucagon 1 mg 03/18/24 04:36 Glucagon For Inj 1 Mg Vial IM PRN PRN Hypoglycemia Protocol Glucose 15 gm 03/18/24 04:36 Glucose Oral Gel 15 Gm Of Glucse In 37.5 Gm Tube PO PRN PRN Hypoglycemia Protocol Heparin Sodium (Porcine) 5,500 units 03/22/24 02:00 03/22/24 09:35 Heparin Sodium 5,000 Units/Ml Vial IV PUSH 5,500 units PRN PRN Administration aPTT less than 55 seconds Heparin Sodium (Porcine) 3,000 units 03/22/24 00:54 Heparin Sodium 5,000 Units/Ml Vial IV PUSH PRN PRN aPTT 55 - 70 seconds Hydralazine HCl 10 mg 03/20/24 14:18 Hydralazine Hcl 20 Mg/Ml Vial IV PUSH Q8H PRN Blood Pressure - High Sodium Chloride 1,000 mls @ 75 mls/hr 03/18/24 02:40 03/22/24 17:26 Normal Saline Iv IV CONT 75 mls/hr .[id number] LINDA Administration Ceftriaxone Sodium 2 gm in 100 mls @ 200 mls/hr 03/18/24 20:00 03/22/24 18:43 Rocephin 2 Gm/Ns 100 Ml IVPB Infused Q24H LINDA Infusion Dextrose 1,000 mls @ 100 mls/hr 03/18/24 04:36 Dextrose 5% 1,000 Ml IVPB PRN PRN Hypoglycemia Protocol Heparin Sodium/Dextrose 25,000 units in 250 mls @ 15 mls/hr 03/22/24 02:00 03/22/24 17:35 Heparin Sodium/D5w 100 Units/Ml IV CONT 1,500 units/hr .[id number] LINDA 15 mls/hr Administration Protocol 1,500 UNITS/HR Ondansetron HCl 4 mg 03/18/24 02:41 Ondansetron Inj 4 Mg/2 Ml Vial IV PUSH Q6H PRN Nausea And Vomiting Polyethylene Glycol 17 gm 03/18/24 02:38 Polyethylene Glycol 3350 17 Gm Powd.Pack PO QAM PRN Constipation Rivaroxaban 20 mg 03/18/24 17:00 Rivaroxaban 20 Mg Tablet PO DAILY@1700 LINDA Sodium Chloride 1 applic 03/19/24 21:00 03/21/24 22:00 Sodium Chloride 5% Ophth Oint 3.5 Gm Tube EACH EYE 1 applic HS LINDA Administration Sodium Chloride 1 drop 03/19/24 17:00 03/22/24 17:39 Sodium Chloride 5% Op Soln 15 Ml Btl EACH EYE 1 drop TID LINDA Administration Radiology Results: ITS Impressions Renal Ultrasound 03/18/24 12:20 IMPRESSION: 1. Moderate diffuse cortical atrophy at the left kidney. No hydronephrosis. 2. Bilateral renal cysts. Retrograde Pyelogram 03/21/24 15:32 IMPRESSION: 1. Normal bilateral retrograde pyelograms. Labs Labs: Laboratory Tests 03/22/24 08:17 03/22/24 08:17 Calcium 8.4 Magnesium 1.8 Total Bilirubin 0.4 AST 36 ALT 23 Alkaline Phosphatase 212 H Total Protein 6.0 L Albumin 2.7 L
[2024-03-22 11:52] LABS: Glucose Point of Care 147 mg/dl (65-105)
--- NOTE | 2024-03-22 13:30 | PM.IMPN ---
Progress Note: A&P Assessment and Plan (1) Acute renal failure: Code(s): N17.9 - Acute kidney failure, unspecified Status: Inactive (2) Urinary tract infection: Code(s): N39.0 - Urinary tract infection, site not specified Status: Acute (3) Bladder mass: Code(s): N32.89 - Other specified disorders of bladder Status: Acute Plan # MATTHEW -Abd/Pelvis CT : Left renal atrophy. No hydronephrosis.Cystitis versus urinary bladder wall thickening from incomplete distention.Small volume pelvic ascites.1.5 cm bladder mass, recommend urology referral. -Urology evaluated and underwent cystoscopy and TURBT medium 3 cm -Cr 5.50 -->3.9( Baseline 1.30),GFR 7 BUN 99 -US renal showed diffuse cortical atrophy 24 hr urine for immunofixation -Hold Nephrotoxic drugs -Chlorthalidone on hold continue IVF and nephrology following # Bladder mass Urology planning for Cystoscopy with TURP 03/21/2024 Urology following. Need surveillance cysto in 3 months. Follow-up in 1-2 weeks to review pathology. # Hyponatremia -Chlorthalidone on hold -Dehydration contribution -NaCl @ 75ml/hr -fractional excretion of urea -CPK , serology and immunofixation. -Nephrology following #UTI/Urosepsis with E coli bacteremia Blood and urine cultures positive for E coli continue Rocephin Repeat cultures negative to date # Possible pneumonia CXR showed consolidation vs atelectasis Continue Rocephin and Azithromycin monitor #Hypercoagulable state -Heparin drip -Xarelto on hold due to possible cystoscopy -Not required a phlebotomy in the last year. -Follows up with Dr. Arnold # DVT prophylaxis on Heparin infusion Subjective Date/time seen: 03/22/24 13:30 Interval history: no overnight events, no nausea vomiting. no abdominal pain. Review of Systems Review of Systems: All systems reviewed & are unremarkable except as noted in HPI and below Exam Narrative: GENERAL: The patient is well developed, not in acute distress HEENT: Nonicteric sclerae, PERRLA, EOMI. Oropharynx clear. Moist mucous membranes. Conjunctivae appear well perfused. CHEST: Chest wall is nontender. HEART: Regular rate and rhythm without murmur, rubs, or gallops LUNGS: Clear to auscultation bilaterally. no respiratory distress ABDOMEN: Soft, positive bowel sounds, non-tender, no organomegaly. SKIN: No rash, no excessive bruising, petechiae, or purpura. NEUROLOGIC: Cranial nerves II-XII intact, alert and oriented x 3, no gross motor deficits EXTREMITIES: no edema, cyanosis or clubbing Objective Data Vital Signs Vital Signs: Vital Signs - 24 hr 03/21/24 13:49 03/21/24 14:00 03/21/24 14:15 Temperature 97.8 F Pulse Rate 62 62 59 L Respiratory Rate 14 18 14 Blood Pressure 149/64 H 169/61 H 148/56 H Pulse Oximetry 100 100 98 Oxygen Delivery Trach Collar Simple Face Mask Room Air Oxygen Flow Rate 8 8 03/21/24 14:30 03/21/24 14:45 03/21/24 15:38 Temperature 97.6 F Pulse Rate 62 62 60 Respiratory Rate 16 16 18 Blood Pressure 152/57 H 152/59 H 144/51 H Pulse Oximetry 99 100 97 Oxygen Delivery Room Air Room Air Oxygen Flow Rate 03/21/24 16:00 03/21/24 16:00 03/21/24 17:31 Temperature Pulse Rate 65 61 Respiratory Rate Blood Pressure Pulse Oximetry Oxygen Delivery Room Air Oxygen Flow Rate 03/21/24 18:00 03/21/24 20:03 03/21/24 20:00 Temperature 98.0 F Pulse Rate 83 66 66 Respiratory Rate 18 18 Blood Pressure 168/58 H Pulse Oximetry 96 96 Oxygen Delivery Room Air Oxygen Flow Rate 03/21/24 20:00 03/21/24 22:00 03/21/24 23:38 Temperature 98.6 F Pulse Rate 66 62 61 Respiratory Rate 18 Blood Pressure 172/58 H Pulse Oximetry 96 Oxygen Delivery Oxygen Flow Rate 03/22/24 00:00 03/22/24 04:57 03/22/24 04:00 Temperature 97.9 F Pulse Rate 61 58 L 58 L Respiratory Rate 18 20 20 Blood Pressure 149/56 H Pulse Oximetry 96 95 95 Oxygen Delivery Room Air Room Air Oxygen Flow Rate 03/22/24 00:00 03/22/24 02:00 03/22/24 04:00 Temperature Pulse Rate 66 59 L 59 L Respiratory Rate Blood Pressure Pulse Oximetry Oxygen Delivery Oxygen Flow Rate 03/22/24 06:00 03/22/24 07:30 03/22/24 09:45 Temperature 98.2 F Pulse Rate 61 58 L 84 Respiratory Rate 20 Blood Pressure 162/52 H Pulse Oximetry 96 Oxygen Delivery Oxygen Flow Rate 03/22/24 08:00 03/22/24 10:00 03/22/24 08:00 Temperature Pulse Rate 63 66 Respiratory Rate Blood Pressure Pulse Oximetry 96 Oxygen Delivery Room Air Oxygen Flow Rate 03/22/24 11:44 Temperature 97.5 F L Pulse Rate 61 Respiratory Rate 20 Blood Pressure 175/66 H Pulse Oximetry 97 Oxygen Delivery Oxygen Flow Rate Intake/Output Intake/Output: Intake & Output 03/19/24 03/20/24 03/21/24 03/22/24 23:59 23:59 23:59 23:59 Intake Total 3954.4 3631.9 1352 1883.6 Output Total 1350 3250 2785 1475 Balance 2604.4 381.9 -1433 408.6 Meds/Results Medications: Active Medications Generic Name Dose Route Start Last Admin Trade Name Freq PRN Reason Stop Dose Admin Acetaminophen 650 mg 03/18/24 02:38 Acetaminophen 325 Mg Tablet PO DAILY PRN Pain Al Hydrox/Mg Hydrox/Simethicone 30 ml 03/18/24 02:38 Mag Hydrox/Al Hydrox/Simeth 30 Ml Udc PO Q6H PRN Indigestion Amlodipine Besylate 2.5 mg 03/19/24 12:35 03/22/24 09:45 Amlodipine Besylate 2.5 Mg Tablet PO 2.5 mg QAM LINDA Administration Atenolol 50 mg 03/18/24 09:00 03/22/24 09:45 Atenolol 50 Mg Tablet PO 50 mg BID LINDA Administration Dextrose 12.5 gm 03/18/24 04:36 Dextrose 50% 25 Gm/50 Ml Syringe IV PUSH PRN PRN Hypoglycemia Protocol Glucagon 1 mg 03/18/24 04:36 Glucagon For Inj 1 Mg Vial IM PRN PRN Hypoglycemia Protocol Glucose 15 gm 03/18/24 04:36 Glucose Oral Gel 15 Gm Of Glucse In 37.5 Gm Tube PO PRN PRN Hypoglycemia Protocol Heparin Sodium (Porcine) 5,500 units 03/22/24 02:00 03/22/24 09:35 Heparin Sodium 5,000 Units/Ml Vial IV PUSH 5,500 units PRN PRN Administration aPTT less than 55 seconds Heparin Sodium (Porcine) 3,000 units 03/22/24 00:54 Heparin Sodium 5,000 Units/Ml Vial IV PUSH PRN PRN aPTT 55 - 70 seconds Hydralazine HCl 10 mg 03/20/24 14:18 Hydralazine Hcl 20 Mg/Ml Vial IV PUSH Q8H PRN Blood Pressure - High Sodium Chloride 1,000 mls @ 75 mls/hr 03/18/24 02:40 03/22/24 07:17 Normal Saline Iv IV CONT 75 mls/hr .[id number] LINDA Administration Ceftriaxone Sodium 2 gm in 100 mls @ 200 mls/hr 03/18/24 20:00 03/21/24 20:26 Rocephin 2 Gm/Ns 100 Ml IVPB 200 mls/hr Q24H LINDA Administration Dextrose 1,000 mls @ 100 mls/hr 03/18/24 04:36 Dextrose 5% 1,000 Ml IVPB PRN PRN Hypoglycemia Protocol Heparin Sodium/Dextrose 25,000 units in 250 mls @ 16 mls/hr 03/22/24 02:00 03/22/24 09:37 Heparin Sodium/D5w 100 Units/Ml IV CONT 1,600 units/hr .[id number] LINDA 16 mls/hr Titration Protocol 1,600 UNITS/HR Ondansetron HCl 4 mg 03/18/24 02:41 Ondansetron Inj 4 Mg/2 Ml Vial IV PUSH Q6H PRN Nausea And Vomiting Polyethylene Glycol 17 gm 03/18/24 02:38 Polyethylene Glycol 3350 17 Gm Powd.Pack PO QAM PRN Constipation Rivaroxaban 20 mg 03/18/24 17:00 Rivaroxaban 20 Mg Tablet PO DAILY@1700 LINDA Sodium Chloride 1 applic 03/19/24 21:00 03/21/24 22:00 Sodium Chloride 5% Ophth Oint 3.5 Gm Tube EACH EYE 1 applic HS LINDA Administration Sodium Chloride 1 drop 03/19/24 17:00 03/22/24 12:26 Sodium Chloride 5% Op Soln 15 Ml Btl EACH EYE 1 drop TID LINDA Administration Radiology Results: ITS Impressions Renal Ultrasound 03/18/24 12:20 IMPRESSION: 1. Moderate diffuse cortical atrophy at the left kidney. No hydronephrosis. 2. Bilateral renal cysts. Retrograde Pyelogram 03/21/24 15:32 IMPRESSION: 1. Normal bilateral retrograde pyelograms. Labs Labs: Laboratory Results - last 24 hr 03/18/24 03/21/24 03/21/24 17:37 15:42 19:48 WBC RBC Hgb Hct MCV MCH MCHC RDW Plt Count MPV Immature Gran % (Auto) Neut % (Auto) Lymph % (Auto) [place] % (Auto) Eos % (Auto) Baso % (Auto) Lymph # (Auto) [place] # (Auto) Eos # (Auto) Baso # (Auto) Abs Immat Gran (auto) Absolute Neuts (auto) Absolute Nucleated RBC Nucleated RBC % PT INR APTT Sodium Potassium Chloride Carbon Dioxide Anion Gap BUN Creatinine Estim Creat Clear Calc Estimated GFR Glucose POC Capillary Glucose 109 H 157 H Calcium Magnesium Total Bilirubin AST ALT Alkaline Phosphatase Total Protein Albumin Serum Immunofixation Normal pattern. 03/21/24 03/22/24 03/22/24 19:49 01:16 07:29 WBC 11.7 H RBC 3.88 L Hgb 11.6 L Hct 34.2 L MCV 88.1 MCH 29.9 MCHC 33.9 RDW 14.5 Plt Count 346 MPV 9.4 Immature Gran % (Auto) 7.6 H Neut % (Auto) 84.9 H Lymph % (Auto) 6.0 L [place] % (Auto) 0.9 L Eos % (Auto) 0.0 Baso % (Auto) 0.6 Lymph # (Auto) 0.70 L [place] # (Auto) 0.1 Eos # (Auto) 0.0 Baso # (Auto) 0.1 Abs Immat Gran (auto) 0.89 H Absolute Neuts (auto) 10.0 H Absolute Nucleated RBC 0.000 Nucleated RBC % 0.0 PT 14.9 H D INR 1.1 APTT 26.4 Sodium Potassium Chloride Carbon Dioxide Anion Gap BUN Creatinine Estim Creat Clear Calc Estimated GFR Glucose POC Capillary Glucose 168 H Calcium Magnesium Total Bilirubin AST ALT Alkaline Phosphatase Total Protein Albumin Serum Immunofixation 03/22/24 03/22/24 08:17 11:30 WBC 14.2 H RBC 3.85 L Hgb 11.3 L Hct 34.5 L MCV 89.6 MCH 29.4 MCHC 32.8 RDW 14.6 H Plt Count 347 MPV 9.7 Immature Gran % (Auto) 6.9 H Neut % (Auto) 83.8 H Lymph % (Auto) 6.5 L [place] % (Auto) 2.2 L Eos % (Auto) 0.0 Baso % (Auto) 0.6 Lymph # (Auto) 0.92 [place] # (Auto) 0.3 Eos # (Auto) 0.0 Baso # (Auto) 0.1 Abs Immat Gran (auto) 0.98 H Absolute Neuts (auto) 11.9 H Absolute Nucleated RBC 0.000 Nucleated RBC % 0.0 PT INR APTT 47.2 H Sodium 133 L Potassium 4.3 Chloride 104 Carbon Dioxide 17 L Anion Gap 12 BUN 76 H Creatinine 3.20 H Estim Creat Clear Calc 14 Estimated GFR 14 L Glucose 153 H POC Capillary Glucose 147 H Calcium 8.4 Magnesium 1.8 Total Bilirubin 0.4 AST 36 ALT 23 Alkaline Phosphatase 212 H Total Protein 6.0 L Albumin 2.7 L Serum Immunofixation
[2024-03-22 17:14] LABS: Partial Thromboplastin Time 107.8 Seconds (22.3-36.8)
[2024-03-22] MEDS: HEPARIN SOD/D5W 100 UNITS/ML 25,000 UNITS/250 ML BAG 15 UNITS IV CONT (17:35)
[2024-03-22] MEDS: cefTRIAXone 2 GM/NS 100 ML 2 GM/100 ML BAG IVPB (20:25)
[2024-03-22 20:32] LABS: Glucose Point of Care 128 mg/dl (65-105)
--- NOTE | 2024-03-22 21:47 | PC.NURSE ---
This patient, Malia Selby, was transferred to [facility] on 03/22/24 at 2145. Personal belongings sent with patient. Report given to Irene CEBALLOS. Appropriate documentation sent with patient.
--- NOTE | 2024-03-22 22:20 | PC.NURSE ---
This patient, Malia Selby, was received from [[id number] ] on 03/22/24 at 2200. Patient/family oriented to unit policies and routines.
[2024-03-22] MEDS: SODIUM CHLORIDE 5% OPHTH OINT 3.5 GM TUBE 1 APPLIC EACH EYE (23:27)
[2024-03-23 01:15] LABS: Glucose Point of Care 156 mg/dl (65-105)
[2024-03-23 06:00] VITALS: BP 141/62; PULSE 84; RESP 20; TEMP 36.2; O2SAT 100
[2024-03-23 07:02] LABS: Basophils Absolute Auto 0.1 K/mm3 (0.0-0.1); Basophils Percent Auto 0.3 % (0.2-1.2); Eosinophils Percent Auto 0.2 % (0-4.4); Hematocrit 29.6 % (37.0-47.0); Immature Granulocyte Percent A 4.9 % (0-0.5); Lymphocytes Absolute Auto 1.39 K/mm3 (0.9-3.2); Lymphocytes Percent Auto 8.5 % (18.3-44.2); Mean Corpuscular HGB Conc 33.8 g/dl (32-36); Mean Corpuscular Hemoglobin 30.2 pg (26-34); Mean Corpuscular Volume 89.4 fl (80-100); Mean Platelet Volume 9.9 fl (7.4-10.4); Monocytes Absolute Auto 1.3 K/mm3 (0.1-0.6); Monocytes Percent Auto 7.8 % (2.6-8.5); Neutrophils Absolute Auto 12.9 K/mm3 (1.3-6.7); Neutrophils Percent Auto 78.3 % (45.5-73.1); Platelet Count Result 321 k/mm3 (150-375); Red Blood Count 3.31 M/mm3 (4.2-5.4); Red Cell Distribution Width 14.5 % (11.5-14.5); White Blood Count 16.4 K/mm3 (4.5-10.0)
[2024-03-23 07:10] LABS: Alanine Aminotransferase 21 U/L (6-35); Albumin Level 2.5 g/dL (3.5-5.1); Alkaline Phosphatase 187 U/L (38-126); Anion Gap 8 mmol/L (4-12); Aspartate Amino Transferase 31 U/L (14-36); Bilirubin,Total 0.4 mg/dL (0.2-1.3); Blood Urea Nitrogen 69 mg/dL (7-17); Calcium 8.2 mg/dL (8.4-10.2); Carbon Dioxide 19 mmol/L (22-30); Chloride 108 mmol/L (98-107); Estimated CRCL calculation 17 ml/min; Estimated Glomerular Filt Rate 17; Glucose 117 mg/dL (65-110); Magnesium 1.6 mg/dL (1.6-2.3); Potassium 3.7 mmol/L (3.4-5.0); Sodium 135 mmol/L (137-145)
[2024-03-23 08:28] LABS: Partial Thromboplastin Time 76.5 Seconds (22.3-36.8)
[2024-03-23 08:53] VITALS: PULSE 57
[2024-03-23] MEDS: atenoloL 50 MG TABLET PO ×2 (08:53→17:54)
[2024-03-23] MEDS: amLODIPine BESYLATE 2.5 MG TABLET PO (08:53)
[2024-03-23] MEDS: SODIUM CHLORIDE 5% OP SOLN 15 ML BTL 1 DROP EACH EYE ×3 (08:53→17:53)
[2024-03-23] MEDS: SODIUM CHLORIDE 0.9% IV 1,000 ML 75 ML IV CONT ×2 (08:55→22:37)
--- NOTE | 2024-03-23 12:11 | PC.NURSE ---
RN acknowledged physican to nurse communication on worklist that Dr. Garcia ordered that stated tell hospitalist to resume xarelto on 03/23/2024. RN called hospitalist Jayden and updated him on the physician to nurse communication.
--- NOTE | 2024-03-23 12:17 | P.PNNP_ITS ---
Progress Note: A&P Assessment and Plan (1) Acute renal failure: Code(s): N17.9 - Acute kidney failure, unspecified Status: Acute Assessment and Plan: * as noted by admission labs * evaluation to date noted: * fractional excretion of urea is pre renal * renal ultrasound shows moderate diffuse cortical atrophy of the left kidney; bilateral renal cysts * CT showed the bladder mass * CPK mildly elevated * serologies pending * creatinine has trended down with IVF hydration * suspect insult due to volume depletion/pre renal azotemia due to diminished oral intake coupled with infection (UTI/bacteremia) * creatinine is down to 2.7. Her baseline is 1.3-1.4 * continue supportive therapy, fluid (2) Chronic kidney disease, stage 3b: Code(s): N18.32 - Chronic kidney disease, stage 3b Status: Acute Assessment and Plan: * baseline creatinine runs ~ 1.3 - 1.4mg/dl * follow-up on pending testing * suspect due to HTN, vascular disease and age-related change (3) Hyponatremia: Code(s): E87.1 - Hypo-osmolality and hyponatremia Status: Inactive Assessment and Plan: * slow improvement noted * only real intervention has been IVFs * evaluation noted: * urine sodium low * TSH and cortisol okay * serum/urine osmo and protein electrophoresis pending * noted bladder mass * chlorthalidone use * sodium level is gradually improving (4) Urinary tract infection: Code(s): N39.0 - Urinary tract infection, site not specified Status: Acute Assessment and Plan: * urine and blood culture with GNB * on ceftriaxone * follow repeat cultures (5) HTN (hypertension): Code(s): I10 - Essential (primary) hypertension Status: Acute Assessment and Plan: * systolic 140-170 * on amlodipine 2.5mg a day. Will increase this and see how the blood pressure does (6) Bladder mass: Code(s): N32.89 - Other specified disorders of bladder Status: Acute Assessment and Plan: * as noted by admission imaging * Urology following * s/p cystoscopy, bilateral retrograde pyelography, and TURBT on 03/21 Will continue to follow. Subjective Date/time seen: 03/23/24 12:17 Interval history: patient is alert. Feels okay. No chest pain or shortness of breath Exam Narrative: General: elderly but WD/WN female in NAD Heart: normal S1 and S2; no rub or gallop Lungs: clear to auscultation Abdomen: soft, nontender, nondistended, positive bowel sounds Extremities: no cyanosis or clubbing; no edema Skin: no rash or subcu nodule Objective Data Vital Signs Vital Signs: Vital Signs - 24 hr 03/22/24 15:59 03/22/24 17:37 03/22/24 20:18 Temperature 97.9 F 98.4 F Pulse Rate 63 64 80 Respiratory Rate 20 20 Blood Pressure 154/50 H 150/55 H Pulse Oximetry 95 93 Oxygen Delivery 03/22/24 20:00 03/23/24 06:00 03/23/24 08:53 Temperature 97.1 F L Pulse Rate 84 57 L Respiratory Rate 20 Blood Pressure 141/62 H Pulse Oximetry 100 Oxygen Delivery Room Air 03/23/24 08:53 Temperature Pulse Rate Respiratory Rate Blood Pressure Pulse Oximetry Oxygen Delivery Room Air Intake/Output Intake/Output: Intake & Output 03/20/24 03/21/24 03/22/24 03/23/24 23:59 23:59 23:59 23:59 Intake Total 3631.9 1352 3362.0 1640.0 Output Total 3250 2785 2575 1100 Balance 381.9 -1433 787.0 540.0 Meds/Results Medications: Active Medications Generic Name Dose Route Start Last Admin Trade Name Freq PRN Reason Stop Dose Admin Acetaminophen 650 mg 03/18/24 02:38 Acetaminophen 325 Mg Tablet PO DAILY PRN Pain Al Hydrox/Mg Hydrox/Simethicone 30 ml 03/18/24 02:38 Mag Hydrox/Al Hydrox/Simeth 30 Ml Udc PO Q6H PRN Indigestion Amlodipine Besylate 2.5 mg 03/19/24 12:35 03/23/24 08:53 Amlodipine Besylate 2.5 Mg Tablet PO 2.5 mg QAM LINDA Administration Atenolol 50 mg 03/18/24 09:00 03/23/24 08:53 Atenolol 50 Mg Tablet PO 50 mg BID LINDA Administration Dextrose 12.5 gm 03/18/24 04:36 Dextrose 50% 25 Gm/50 Ml Syringe IV PUSH PRN PRN Hypoglycemia Protocol Glucagon 1 mg 03/18/24 04:36 Glucagon For Inj 1 Mg Vial IM PRN PRN Hypoglycemia Protocol Glucose 15 gm 03/18/24 04:36 Glucose Oral Gel 15 Gm Of Glucse In 37.5 Gm Tube PO PRN PRN Hypoglycemia Protocol Hydralazine HCl 10 mg 03/20/24 14:18 Hydralazine Hcl 20 Mg/Ml Vial IV PUSH Q8H PRN Blood Pressure - High Sodium Chloride 1,000 mls @ 75 mls/hr 03/18/24 02:40 03/23/24 08:55 Normal Saline Iv IV CONT 75 mls/hr .[id number] LINDA Administration Ceftriaxone Sodium 2 gm in 100 mls @ 200 mls/hr 03/18/24 20:00 03/22/24 20:55 Rocephin 2 Gm/Ns 100 Ml IVPB Infused Q24H LINDA Infusion Dextrose 1,000 mls @ 100 mls/hr 03/18/24 04:36 Dextrose 5% 1,000 Ml IVPB PRN PRN Hypoglycemia Protocol Ondansetron HCl 4 mg 03/18/24 02:41 Ondansetron Inj 4 Mg/2 Ml Vial IV PUSH Q6H PRN Nausea And Vomiting Polyethylene Glycol 17 gm 03/18/24 02:38 Polyethylene Glycol 3350 17 Gm Powd.Pack PO QAM PRN Constipation Rivaroxaban 20 mg 03/18/24 17:00 Rivaroxaban 20 Mg Tablet PO DAILY@1700 LINDA Sodium Chloride 1 applic 03/19/24 21:00 03/22/24 23:27 Sodium Chloride 5% Ophth Oint 3.5 Gm Tube EACH EYE 1 applic HS LINDA Administration Sodium Chloride 1 drop 03/19/24 17:00 03/23/24 08:53 Sodium Chloride 5% Op Soln 15 Ml Btl EACH EYE 1 drop TID LINDA Administration Radiology Results: ITS Impressions Renal Ultrasound 03/18/24 12:20 IMPRESSION: 1. Moderate diffuse cortical atrophy at the left kidney. No hydronephrosis. 2. Bilateral renal cysts. Retrograde Pyelogram 03/21/24 15:32 IMPRESSION: 1. Normal bilateral retrograde pyelograms. Labs Labs: Laboratory Results - last 24 hr 03/19/24 03/22/24 03/22/24 13:00 15:57 16:10 WBC RBC Hgb Hct MCV MCH MCHC RDW Plt Count MPV Immature Gran % (Auto) Neut % (Auto) Lymph % (Auto) [place] % (Auto) Eos % (Auto) Baso % (Auto) Lymph # (Auto) [place] # (Auto) Eos # (Auto) Baso # (Auto) Abs Immat Gran (auto) Absolute Neuts (auto) Absolute Nucleated RBC Nucleated RBC % APTT 107.8 H Sodium Potassium Chloride Carbon Dioxide Anion Gap BUN Creatinine Estim Creat Clear Calc Estimated GFR Glucose POC Capillary Glucose 156 H Calcium Magnesium Total Bilirubin AST ALT Alkaline Phosphatase Total Protein Albumin Ur CARLOS ALBERTO Interpret 24 hr 03/22/24 03/22/24 03/23/24 20:24 23:52 06:52 WBC 16.4 H RBC 3.31 L Hgb 10.0 L Hct 29.6 L MCV 89.4 MCH 30.2 MCHC 33.8 RDW 14.5 Plt Count 321 MPV 9.9 Immature Gran % (Auto) 4.9 H Neut % (Auto) 78.3 H Lymph % (Auto) 8.5 L [place] % (Auto) 7.8 Eos % (Auto) 0.2 Baso % (Auto) 0.3 Lymph # (Auto) 1.39 [place] # (Auto) 1.3 H Eos # (Auto) 0.0 Baso # (Auto) 0.1 Abs Immat Gran (auto) 0.80 H Absolute Neuts (auto) 12.9 H Absolute Nucleated RBC 0.000 Nucleated RBC % 0.0 APTT 112.0 H Sodium 135 L Potassium 3.7 Chloride 108 H Carbon Dioxide 19 L Anion Gap 8 BUN 69 H Creatinine 2.70 H Estim Creat Clear Calc 17 Estimated GFR 17 L Glucose 117 H POC Capillary Glucose 128 H Calcium 8.2 L Magnesium 1.6 Total Bilirubin 0.4 AST 31 ALT 21 Alkaline Phosphatase 187 H Total Protein 6.0 L Albumin 2.5 L Ur CARLOS ALBERTO Interpret 24 hr 03/23/24 07:43 WBC RBC Hgb Hct MCV MCH MCHC RDW Plt Count MPV Immature Gran % (Auto) Neut % (Auto) Lymph % (Auto) [place] % (Auto) Eos % (Auto) Baso % (Auto) Lymph # (Auto) [place] # (Auto) Eos # (Auto) Baso # (Auto) Abs Immat Gran (auto) Absolute Neuts (auto) Absolute Nucleated RBC Nucleated RBC % APTT 76.5 H Sodium Potassium Chloride Carbon Dioxide Anion Gap BUN Creatinine Estim Creat Clear Calc Estimated GFR Glucose POC Capillary Glucose Calcium Magnesium Total Bilirubin AST ALT Alkaline Phosphatase Total Protein Albumin Ur CARLOS ALBERTO Interpret 24 hr
--- NOTE | 2024-03-23 13:12 | PM.IMPN ---
Progress Note: A&P Assessment and Plan (1) Acute renal failure: Code(s): N17.9 - Acute kidney failure, unspecified Status: Acute (2) Urinary tract infection: Code(s): N39.0 - Urinary tract infection, site not specified Status: Acute (3) Bladder mass: Code(s): N32.89 - Other specified disorders of bladder Status: Acute Plan # MATTHEW -Abd/Pelvis CT : Left renal atrophy. No hydronephrosis.Cystitis versus urinary bladder wall thickening from incomplete distention.Small volume pelvic ascites.1.5 cm bladder mass, recommend urology referral. -Urology evaluated and underwent cystoscopy and TURBT medium 3 cm -Cr 5.50 -->3.9( Baseline 1.30),GFR 7 BUN 99 -US renal showed diffuse cortical atrophy 24 hr urine for immunofixation -Hold Nephrotoxic drugs -Chlorthalidone on hold continue IVF and nephrology following # Bladder mass Urology planning for Cystoscopy with TURP 03/21/2024 Urology following. Need surveillance cysto in 3 months. Follow-up in 1-2 weeks to review pathology. # Hyponatremia -Chlorthalidone on hold -Dehydration contribution -NaCl @ 75ml/hr -fractional excretion of urea -CPK , serology and immunofixation. -Nephrology following #UTI/Urosepsis with E coli bacteremia Blood and urine cultures positive for E coli continue Rocephin Repeat cultures negative to date # Possible pneumonia CXR showed consolidation vs atelectasis Continue Rocephin and Azithromycin monitor #Hypercoagulable state -Heparin drip -Xarelto on hold due to cystoscopy will resume -Not required a phlebotomy in the last year. -Follows up with Dr. Arnold # DVT prophylaxis on Heparin infusion will resume Xarelto Subjective Date/time seen: 03/23/24 13:12 Interval history: No new complaints. Feeling well. Bit weak. No chest pain or shortness of breath Review of Systems Review of Systems: All systems reviewed & are unremarkable except as noted in HPI and below Exam Narrative: GENERAL: The patient is well developed, not in acute distress HEENT: Nonicteric sclerae, PERRLA, EOMI. Oropharynx clear. Moist mucous membranes. Conjunctivae appear well perfused. CHEST: Chest wall is nontender. HEART: Regular rate and rhythm without murmur, rubs, or gallops LUNGS: Clear to auscultation bilaterally. no respiratory distress ABDOMEN: Soft, positive bowel sounds, non-tender, no organomegaly. SKIN: No rash, no excessive bruising, petechiae, or purpura. NEUROLOGIC: Cranial nerves II-XII intact, alert and oriented x 3, no gross motor deficits EXTREMITIES: no edema, cyanosis or clubbing Objective Data Vital Signs Vital Signs: Vital Signs - 24 hr 03/22/24 15:59 03/22/24 17:37 03/22/24 20:18 Temperature 97.9 F 98.4 F Pulse Rate 63 64 80 Respiratory Rate 20 20 Blood Pressure 154/50 H 150/55 H Pulse Oximetry 95 93 Oxygen Delivery 03/22/24 20:00 03/23/24 06:00 03/23/24 08:53 Temperature 97.1 F L Pulse Rate 84 57 L Respiratory Rate 20 Blood Pressure 141/62 H Pulse Oximetry 100 Oxygen Delivery Room Air 03/23/24 08:53 Temperature Pulse Rate Respiratory Rate Blood Pressure Pulse Oximetry Oxygen Delivery Room Air Intake/Output Intake/Output: Intake & Output 03/20/24 03/21/24 03/22/24 03/23/24 23:59 23:59 23:59 23:59 Intake Total 3631.9 1352 3362.0 1640.0 Output Total 3250 2785 2575 1100 Balance 381.9 -1433 787.0 540.0 Meds/Results Medications: Active Medications Generic Name Dose Route Start Last Admin Trade Name Freq PRN Reason Stop Dose Admin Acetaminophen 650 mg 03/18/24 02:38 Acetaminophen 325 Mg Tablet PO DAILY PRN Pain Al Hydrox/Mg Hydrox/Simethicone 30 ml 03/18/24 02:38 Mag Hydrox/Al Hydrox/Simeth 30 Ml Udc PO Q6H PRN Indigestion Amlodipine Besylate 5 mg 03/24/24 09:00 Amlodipine Besylate 5 Mg Tablet PO QAM LINDA Atenolol 50 mg 03/18/24 09:00 03/23/24 08:53 Atenolol 50 Mg Tablet PO 50 mg BID LINDA Administration Dextrose 12.5 gm 03/18/24 04:36 Dextrose 50% 25 Gm/50 Ml Syringe IV PUSH PRN PRN Hypoglycemia Protocol Glucagon 1 mg 03/18/24 04:36 Glucagon For Inj 1 Mg Vial IM PRN PRN Hypoglycemia Protocol Glucose 15 gm 03/18/24 04:36 Glucose Oral Gel 15 Gm Of Glucse In 37.5 Gm Tube PO PRN PRN Hypoglycemia Protocol Hydralazine HCl 10 mg 03/20/24 14:18 Hydralazine Hcl 20 Mg/Ml Vial IV PUSH Q8H PRN Blood Pressure - High Sodium Chloride 1,000 mls @ 75 mls/hr 03/18/24 02:40 03/23/24 08:55 Normal Saline Iv IV CONT 75 mls/hr .[id number] LINDA Administration Ceftriaxone Sodium 2 gm in 100 mls @ 200 mls/hr 03/18/24 20:00 03/22/24 20:55 Rocephin 2 Gm/Ns 100 Ml IVPB Infused Q24H LINDA Infusion Dextrose 1,000 mls @ 100 mls/hr 03/18/24 04:36 Dextrose 5% 1,000 Ml IVPB PRN PRN Hypoglycemia Protocol Ondansetron HCl 4 mg 03/18/24 02:41 Ondansetron Inj 4 Mg/2 Ml Vial IV PUSH Q6H PRN Nausea And Vomiting Polyethylene Glycol 17 gm 03/18/24 02:38 Polyethylene Glycol 3350 17 Gm Powd.Pack PO QAM PRN Constipation Rivaroxaban 20 mg 03/18/24 17:00 Rivaroxaban 20 Mg Tablet PO DAILY@1700 LINDA Sodium Chloride 1 applic 03/19/24 21:00 03/22/24 23:27 Sodium Chloride 5% Ophth Oint 3.5 Gm Tube EACH EYE 1 applic HS LINDA Administration Sodium Chloride 1 drop 03/19/24 17:00 03/23/24 13:07 Sodium Chloride 5% Op Soln 15 Ml Btl EACH EYE 1 drop TID LINDA Administration Radiology Results: ITS Impressions Renal Ultrasound 03/18/24 12:20 IMPRESSION: 1. Moderate diffuse cortical atrophy at the left kidney. No hydronephrosis. 2. Bilateral renal cysts. Retrograde Pyelogram 03/21/24 15:32 IMPRESSION: 1. Normal bilateral retrograde pyelograms. Labs Labs: Laboratory Results - last 24 hr 03/19/24 03/22/24 03/22/24 13:00 15:57 16:10 WBC RBC Hgb Hct MCV MCH MCHC RDW Plt Count MPV Immature Gran % (Auto) Neut % (Auto) Lymph % (Auto) [place] % (Auto) Eos % (Auto) Baso % (Auto) Lymph # (Auto) [place] # (Auto) Eos # (Auto) Baso # (Auto) Abs Immat Gran (auto) Absolute Neuts (auto) Absolute Nucleated RBC Nucleated RBC % APTT 107.8 H Sodium Potassium Chloride Carbon Dioxide Anion Gap BUN Creatinine Estim Creat Clear Calc Estimated GFR Glucose POC Capillary Glucose 156 H Calcium Magnesium Total Bilirubin AST ALT Alkaline Phosphatase Total Protein Albumin Ur CARLOS ALBERTO Interpret 24 hr 03/22/24 03/22/24 03/23/24 20:24 23:52 06:52 WBC 16.4 H RBC 3.31 L Hgb 10.0 L Hct 29.6 L MCV 89.4 MCH 30.2 MCHC 33.8 RDW 14.5 Plt Count 321 MPV 9.9 Immature Gran % (Auto) 4.9 H Neut % (Auto) 78.3 H Lymph % (Auto) 8.5 L [place] % (Auto) 7.8 Eos % (Auto) 0.2 Baso % (Auto) 0.3 Lymph # (Auto) 1.39 [place] # (Auto) 1.3 H Eos # (Auto) 0.0 Baso # (Auto) 0.1 Abs Immat Gran (auto) 0.80 H Absolute Neuts (auto) 12.9 H Absolute Nucleated RBC 0.000 Nucleated RBC % 0.0 APTT 112.0 H Sodium 135 L Potassium 3.7 Chloride 108 H Carbon Dioxide 19 L Anion Gap 8 BUN 69 H Creatinine 2.70 H Estim Creat Clear Calc 17 Estimated GFR 17 L Glucose 117 H POC Capillary Glucose 128 H Calcium 8.2 L Magnesium 1.6 Total Bilirubin 0.4 AST 31 ALT 21 Alkaline Phosphatase 187 H Total Protein 6.0 L Albumin 2.5 L Ur CARLOS ALBERTO Interpret 24 hr 03/23/24 07:43 WBC RBC Hgb Hct MCV MCH MCHC RDW Plt Count MPV Immature Gran % (Auto) Neut % (Auto) Lymph % (Auto) [place] % (Auto) Eos % (Auto) Baso % (Auto) Lymph # (Auto) [place] # (Auto) Eos # (Auto) Baso # (Auto) Abs Immat Gran (auto) Absolute Neuts (auto) Absolute Nucleated RBC Nucleated RBC % APTT 76.5 H Sodium Potassium Chloride Carbon Dioxide Anion Gap BUN Creatinine Estim Creat Clear Calc Estimated GFR Glucose POC Capillary Glucose Calcium Magnesium Total Bilirubin AST ALT Alkaline Phosphatase Total Protein Albumin Ur CARLOS ALBERTO Interpret 24 hr
[2024-03-23] MEDS: RIVAROXABAN 15 MG TABLET PO (17:53)
[2024-03-23 17:54] VITALS: PULSE 60
[2024-03-23] MEDS: TROLAMINE SALICYLATE 10% (*BKC) 113 GM CREAM 1 APPLIC TOPICAL ×2 (17:54→21:00)
[2024-03-23 17:57] VITALS: BP 150/56; PULSE 60; RESP 17; TEMP 36.7; O2SAT 97
[2024-03-23] MEDS: cefTRIAXone 2 GM/NS 100 ML 2 GM/100 ML BAG IVPB (20:52)
[2024-03-23] MEDS: SODIUM CHLORIDE 5% OPHTH OINT 3.5 GM TUBE 1 APPLIC EACH EYE (21:00)
[2024-03-23 21:43] VITALS: BP 150/56; PULSE 60; RESP 20; TEMP 36.7; O2SAT 100
[2024-03-24 05:48] LABS: Basophils Absolute Auto 0.1 K/mm3 (0.0-0.1); Basophils Percent Auto 0.6 % (0.2-1.2); Eosinophils Absolute Auto 0.1 K/mm3 (0-0.3); Eosinophils Percent Auto 0.7 % (0-4.4); Immature Granulocyte Absolute 0.54 K/mm3 (0.00-0.031); Lymphocytes Absolute Auto 1.09 K/mm3 (0.9-3.2); Lymphocytes Percent Auto 8.1 % (18.3-44.2); Mean Corpuscular HGB Conc 32.3 g/dl (32-36); Mean Corpuscular Hemoglobin 29.6 pg (26-34); Mean Corpuscular Volume 91.7 fl (80-100); Mean Platelet Volume 10.1 fl (7.4-10.4); Monocytes Absolute Auto 1.6 K/mm3 (0.1-0.6); Monocytes Percent Auto 11.5 % (2.6-8.5); Neutrophils Absolute Auto 10.1 K/mm3 (1.3-6.7); Neutrophils Percent Auto 75.1 % (45.5-73.1); Platelet Count Result 323 k/mm3 (150-375); Red Blood Count 3.38 M/mm3 (4.2-5.4); Red Cell Distribution Width 14.7 % (11.5-14.5); White Blood Count 13.5 K/mm3 (4.5-10.0)
[2024-03-24 05:55] LABS: Alanine Aminotransferase 19 U/L (6-35); Albumin Level 2.6 g/dL (3.5-5.1); Alkaline Phosphatase 156 U/L (38-126); Anion Gap 8 mmol/L (4-12); Aspartate Amino Transferase 22 U/L (14-36); Bilirubin,Total 0.3 mg/dL (0.2-1.3); Blood Urea Nitrogen 62 mg/dL (7-17); Calcium 8.3 mg/dL (8.4-10.2); Carbon Dioxide 22 mmol/L (22-30); Chloride 109 mmol/L (98-107); Estimated CRCL calculation 18 ml/min; Estimated Glomerular Filt Rate 18; Glucose 109 mg/dL (65-110); Magnesium 1.5 mg/dL (1.6-2.3); Potassium 4.5 mmol/L (3.4-5.0); Sodium 139 mmol/L (137-145)
[2024-03-24 06:00] VITALS: BP 153/47; PULSE 60; RESP 20; TEMP 36.7; O2SAT 98
[2024-03-24 08:40] VITALS: PULSE 61
[2024-03-24] MEDS: amLODIPine BESYLATE 5 MG TABLET PO (08:40)
[2024-03-24] MEDS: atenoloL 50 MG TABLET PO ×2 (08:40→17:10)
[2024-03-24] MEDS: SODIUM CHLORIDE 5% OP SOLN 15 ML BTL 1 DROP EACH EYE ×3 (08:42→17:14)
[2024-03-24] MEDS: TROLAMINE SALICYLATE 10% (*BKC) 113 GM CREAM 1 APPLIC TOPICAL ×4 (08:43→20:24)
[2024-03-24] MEDS: MAGNESIUM SULF 1 GM/D5W 100 ML 1 GM/100 ML BAG IVPB (08:51)
--- NOTE | 2024-03-24 09:39 | P.PNNP_ITS ---
Progress Note: A&P Assessment and Plan (1) Acute renal failure: Code(s): N17.9 - Acute kidney failure, unspecified Status: Acute Assessment and Plan: * as noted by admission labs * evaluation to date noted: * fractional excretion of urea is pre renal * renal ultrasound shows moderate diffuse cortical atrophy of the left kidney; bilateral renal cysts * CT showed the bladder mass * CPK mildly elevated * serologies pending * creatinine has trended down with IVF hydration, however seems to be nearing a plateau * suspect insult due to volume depletion/pre renal azotemia due to diminished oral intake coupled with infection (UTI/bacteremia) * creatinine is down to 2.5. Her baseline is 1.3-1.4 * she is eating pretty will liberalize the diet. Drinking fluid. With her swelling I do not think she needs any more IV fluids. * Will check another creatinine tomorrow (2) Chronic kidney disease, stage 3b: Code(s): N18.32 - Chronic kidney disease, stage 3b Status: Acute Assessment and Plan: * baseline creatinine runs ~ 1.3 - 1.4mg/dl * follow-up on pending testing * suspect due to HTN, vascular disease and age-related change (3) Hyponatremia: Code(s): E87.1 - Hypo-osmolality and hyponatremia Status: Inactive Assessment and Plan: * slow improvement noted * only real intervention has been IVFs * evaluation noted: * urine sodium low * TSH and cortisol okay * serum/urine osmo and protein electrophoresis pending * noted bladder mass * chlorthalidone use * sodium level is normal now. (4) Urinary tract infection: Code(s): N39.0 - Urinary tract infection, site not specified Status: Acute Assessment and Plan: * urine and blood culture with GNB * on ceftriaxone * follow repeat cultures (5) HTN (hypertension): Code(s): I10 - Essential (primary) hypertension Status: Acute Assessment and Plan: * systolic 140-170 * on amlodipine 5Mg per day. This just started yesterday. (6) Bladder mass: Code(s): N32.89 - Other specified disorders of bladder Status: Acute Assessment and Plan: * as noted by admission imaging * Urology following * s/p cystoscopy, bilateral retrograde pyelography, and TURBT on 03/21 Will continue to follow. Subjective Date/time seen: 03/24/24 09:39 Interval history: Patient feels about the same. Still very dry mouth. Eating isn't great but she is eating some. She will ask family to bring some food in. Exam Narrative: General: elderly but WD/WN female in NAD Heart: normal S1 and S2; no rub or gallop Lungs: clear Bilateral Abdomen: soft, nontender, nondistended, positive bowel sounds Extremities: no cyanosis or clubbing; 1+ bilateral edema Skin: no rash or subcu nodule Objective Data Vital Signs Vital Signs: Vital Signs - 24 hr 03/23/24 17:54 03/23/24 17:57 03/23/24 21:43 Temperature 98.0 F 98.0 F Pulse Rate 60 60 60 Respiratory Rate 17 20 Blood Pressure 150/56 H 150/56 H Pulse Oximetry 97 100 Oxygen Delivery 03/23/24 20:00 03/24/24 06:00 03/24/24 08:40 Temperature 98.0 F Pulse Rate 60 61 Respiratory Rate 20 Blood Pressure 153/47 H Pulse Oximetry 98 Oxygen Delivery Room Air Intake/Output Intake/Output: Intake & Output 03/21/24 03/22/24 03/23/24 03/24/24 23:59 23:59 23:59 23:59 Intake Total 1352 3362.0 3520.0 Output Total 2785 2575 2900 700 Balance -1433 787.0 620.0 -700 Meds/Results Medications: Active Medications Generic Name Dose Route Start Last Admin Trade Name Freq PRN Reason Stop Dose Admin Acetaminophen 650 mg 03/18/24 02:38 Acetaminophen 325 Mg Tablet PO DAILY PRN Pain Al Hydrox/Mg Hydrox/Simethicone 30 ml 03/18/24 02:38 Mag Hydrox/Al Hydrox/Simeth 30 Ml Udc PO Q6H PRN Indigestion Amlodipine Besylate 5 mg 03/24/24 09:00 03/24/24 08:40 Amlodipine Besylate 5 Mg Tablet PO 5 mg QAM LINDA Administration Atenolol 50 mg 03/18/24 09:00 03/24/24 08:40 Atenolol 50 Mg Tablet PO 50 mg BID LINDA Administration Dextrose 12.5 gm 03/18/24 04:36 Dextrose 50% 25 Gm/50 Ml Syringe IV PUSH PRN PRN Hypoglycemia Protocol Glucagon 1 mg 03/18/24 04:36 Glucagon For Inj 1 Mg Vial IM PRN PRN Hypoglycemia Protocol Glucose 15 gm 03/18/24 04:36 Glucose Oral Gel 15 Gm Of Glucse In 37.5 Gm Tube PO PRN PRN Hypoglycemia Protocol Hydralazine HCl 10 mg 03/20/24 14:18 Hydralazine Hcl 20 Mg/Ml Vial IV PUSH Q8H PRN Blood Pressure - High Sodium Chloride 1,000 mls @ 75 mls/hr 03/18/24 02:40 03/23/24 22:37 Normal Saline Iv IV CONT 75 mls/hr .[id number] LINDA Administration Ceftriaxone Sodium 2 gm in 100 mls @ 200 mls/hr 03/18/24 20:00 03/23/24 21:25 Rocephin 2 Gm/Ns 100 Ml IVPB Infused Q24H LINDA Infusion Dextrose 1,000 mls @ 100 mls/hr 03/18/24 04:36 Dextrose 5% 1,000 Ml IVPB PRN PRN Hypoglycemia Protocol Magnesium Sulfate/Dextrose 1 gm in 100 mls @ 100 mls/hr 03/24/24 09:00 03/24/24 08:51 Magnesium Sulf 1 Gm/D5w 100 Ml IVPB 03/24/24 09:59 100 mls/hr ONCE ONE Administration Ondansetron HCl 4 mg 03/18/24 02:41 Ondansetron Inj 4 Mg/2 Ml Vial IV PUSH Q6H PRN Nausea And Vomiting Polyethylene Glycol 17 gm 03/18/24 02:38 Polyethylene Glycol 3350 17 Gm Powd.Pack PO QAM PRN Constipation Rivaroxaban 20 mg 03/18/24 17:00 Rivaroxaban 20 Mg Tablet PO DAILY@1700 [facility] Rivaroxaban 15 mg 03/23/24 17:00 03/23/24 17:53 Rivaroxaban 15 Mg Tablet PO 15 mg DAILY@1700 LINDA Administration Sodium Chloride 1 applic 03/19/24 21:00 03/23/24 21:00 Sodium Chloride 5% Ophth Oint 3.5 Gm Tube EACH EYE 1 applic HS LINDA Administration Sodium Chloride 1 drop 03/19/24 17:00 03/24/24 08:42 Sodium Chloride 5% Op Soln 15 Ml Btl EACH EYE 1 drop TID LINDA Administration Trolamine Salicylate 1 applic 03/23/24 17:00 03/24/24 08:43 Trolamine Salicylate 10% (*Bkc) 113 Gm Cream TOPICAL 1 applic QID LINDA Administration Radiology Results: ITS Impressions Renal Ultrasound 03/18/24 12:20 IMPRESSION: 1. Moderate diffuse cortical atrophy at the left kidney. No hydronephrosis. 2. Bilateral renal cysts. Retrograde Pyelogram 03/21/24 15:32 IMPRESSION: 1. Normal bilateral retrograde pyelograms. Labs Labs: Laboratory Results - last 24 hr 03/24/24 05:29 WBC 13.5 H RBC 3.38 L Hgb 10.0 L Hct 31.0 L MCV 91.7 MCH 29.6 MCHC 32.3 RDW 14.7 H Plt Count 323 MPV 10.1 Immature Gran % (Auto) 4.0 H Neut % (Auto) 75.1 H Lymph % (Auto) 8.1 L [place] % (Auto) 11.5 H Eos % (Auto) 0.7 Baso % (Auto) 0.6 Lymph # (Auto) 1.09 [place] # (Auto) 1.6 H Eos # (Auto) 0.1 Baso # (Auto) 0.1 Abs Immat Gran (auto) 0.54 H Absolute Neuts (auto) 10.1 H Absolute Nucleated RBC 0.000 Nucleated RBC % 0.0 Sodium 139 Potassium 4.5 Chloride 109 H Carbon Dioxide 22 Anion Gap 8 BUN 62 H Creatinine 2.50 H Estim Creat Clear Calc 18 Estimated GFR 18 L Glucose 109 Calcium 8.3 L Magnesium 1.5 L Total Bilirubin 0.3 AST 22 ALT 19 Alkaline Phosphatase 156 H Total Protein 6.0 L Albumin 2.6 L
--- NOTE | 2024-03-24 12:56 | P.PNIM_ITS ---
Progress Note: A&P Assessment and Plan (1) Acute renal failure: Code(s): N17.9 - Acute kidney failure, unspecified Status: Acute (2) Urinary tract infection: Code(s): N39.0 - Urinary tract infection, site not specified Status: Acute (3) Bladder mass: Code(s): N32.89 - Other specified disorders of bladder Status: Acute Plan # MATTHEW -Abd/Pelvis CT : Left renal atrophy. No hydronephrosis.Cystitis versus urinary bladder wall thickening from incomplete distention.Small volume pelvic ascites.1.5 cm bladder mass, recommend urology referral. -Urology evaluated and underwent cystoscopy and TURBT medium 3 cm -Cr 5.50 -->3.9( Baseline 1.30),GFR 7 BUN 99 -US renal showed diffuse cortical atrophy 24 hr urine for immunofixation -Hold Nephrotoxic drugs -Chlorthalidone on hold stop IVF and nephrology following # Bladder mass Urology planning for Cystoscopy with TURP 03/21/2024 Urology following. Need surveillance cysto in 3 months. Follow-up in 1-2 weeks to review pathology. # Hyponatremia -Chlorthalidone on hold -Dehydration contribution -NaCl @ 75ml/hr -fractional excretion of urea -CPK , serology and immunofixation. -Nephrology following #UTI/Urosepsis with E coli bacteremia Blood and urine cultures positive for E coli continue Rocephin Repeat cultures negative to date # Possible pneumonia CXR showed consolidation vs atelectasis Continue Rocephin and Azithromycin monitor #Hypercoagulable state -Heparin drip -Xarelto on hold due to cystoscopy will resume -Not required a phlebotomy in the last year. -Follows up with Dr. Arnold # DVT prophylaxis on Heparin infusion will resume Xarelto but at a lower dose Subjective Date/time seen: 03/24/24 12:56 Interval history: no overnight events. No new complaints. Feels weak. No nausea vomiting. Labs reviewed. Discussed with the patient. Review of Systems Review of Systems: All systems reviewed & are unremarkable except as noted in HPI and below Exam Narrative: GENERAL: The patient is well developed, not in acute distress HEENT: Nonicteric sclerae, PERRLA, EOMI. Oropharynx clear. Moist mucous membranes. Conjunctivae appear well perfused. CHEST: Chest wall is nontender. HEART: Regular rate and rhythm without murmur, rubs, or gallops LUNGS: Clear to auscultation bilaterally. no respiratory distress ABDOMEN: Soft, positive bowel sounds, non-tender, no organomegaly. SKIN: No rash, no excessive bruising, petechiae, or purpura. NEUROLOGIC: Cranial nerves II-XII intact, alert and oriented x 3, no gross motor deficits EXTREMITIES: no edema, cyanosis or clubbing Objective Data Vital Signs Vital Signs: Vital Signs - 24 hr 03/23/24 17:54 03/23/24 17:57 03/23/24 21:43 Temperature 98.0 F 98.0 F Pulse Rate 60 60 60 Respiratory Rate 17 20 Blood Pressure 150/56 H 150/56 H Pulse Oximetry 97 100 Oxygen Delivery 03/23/24 20:00 03/24/24 06:00 03/24/24 08:40 Temperature 98.0 F Pulse Rate 60 61 Respiratory Rate 20 Blood Pressure 153/47 H Pulse Oximetry 98 Oxygen Delivery Room Air 03/24/24 11:52 Temperature Pulse Rate Respiratory Rate Blood Pressure Pulse Oximetry Oxygen Delivery Room Air Intake/Output Intake/Output: Intake & Output 03/21/24 03/22/24 03/23/24 03/24/24 23:59 23:59 23:59 23:59 Intake Total 1352 3362.0 3520.0 1090 Output Total 2785 2575 2900 700 Balance -1433 787.0 620.0 390 Meds/Results Medications: Active Medications Generic Name Dose Route Start Last Admin Trade Name Freq PRN Reason Stop Dose Admin Acetaminophen 650 mg 03/18/24 02:38 Acetaminophen 325 Mg Tablet PO DAILY PRN Pain Al Hydrox/Mg Hydrox/Simethicone 30 ml 03/18/24 02:38 Mag Hydrox/Al Hydrox/Simeth 30 Ml Udc PO Q6H PRN Indigestion Amlodipine Besylate 5 mg 03/24/24 09:00 03/24/24 08:40 Amlodipine Besylate 5 Mg Tablet PO 5 mg QAM LINDA Administration Atenolol 50 mg 03/18/24 09:00 03/24/24 08:40 Atenolol 50 Mg Tablet PO 50 mg BID LINDA Administration Dextrose 12.5 gm 03/18/24 04:36 Dextrose 50% 25 Gm/50 Ml Syringe IV PUSH PRN PRN Hypoglycemia Protocol Glucagon 1 mg 03/18/24 04:36 Glucagon For Inj 1 Mg Vial IM PRN PRN Hypoglycemia Protocol Glucose 15 gm 03/18/24 04:36 Glucose Oral Gel 15 Gm Of Glucse In 37.5 Gm Tube PO PRN PRN Hypoglycemia Protocol Hydralazine HCl 10 mg 03/20/24 14:18 Hydralazine Hcl 20 Mg/Ml Vial IV PUSH Q8H PRN Blood Pressure - High Ceftriaxone Sodium 2 gm in 100 mls @ 200 mls/hr 03/18/24 20:00 03/23/24 21:25 Rocephin 2 Gm/Ns 100 Ml IVPB Infused Q24H LINDA Infusion Dextrose 1,000 mls @ 100 mls/hr 03/18/24 04:36 Dextrose 5% 1,000 Ml IVPB PRN PRN Hypoglycemia Protocol Ondansetron HCl 4 mg 03/18/24 02:41 Ondansetron Inj 4 Mg/2 Ml Vial IV PUSH Q6H PRN Nausea And Vomiting Polyethylene Glycol 17 gm 03/18/24 02:38 Polyethylene Glycol 3350 17 Gm Powd.Pack PO QAM PRN Constipation Rivaroxaban 20 mg 03/18/24 17:00 Rivaroxaban 20 Mg Tablet PO DAILY@1700 [facility] Rivaroxaban 15 mg 03/23/24 17:00 03/23/24 17:53 Rivaroxaban 15 Mg Tablet PO 15 mg DAILY@1700 LINDA Administration Sodium Chloride 1 applic 03/19/24 21:00 03/23/24 21:00 Sodium Chloride 5% Ophth Oint 3.5 Gm Tube EACH EYE 1 applic HS LINDA Administration Sodium Chloride 1 drop 03/19/24 17:00 03/24/24 08:42 Sodium Chloride 5% Op Soln 15 Ml Btl EACH EYE 1 drop TID LINDA Administration Trolamine Salicylate 1 applic 03/23/24 17:00 03/24/24 08:43 Trolamine Salicylate 10% (*Bkc) 113 Gm Cream TOPICAL 1 applic QID LINDA Administration Radiology Results: ITS Impressions Renal Ultrasound 03/18/24 12:20 IMPRESSION: 1. Moderate diffuse cortical atrophy at the left kidney. No hydronephrosis. 2. Bilateral renal cysts. Retrograde Pyelogram 03/21/24 15:32 IMPRESSION: 1. Normal bilateral retrograde pyelograms. Labs Labs: Laboratory Results - last 24 hr 03/24/24 05:29 WBC 13.5 H RBC 3.38 L Hgb 10.0 L Hct 31.0 L MCV 91.7 MCH 29.6 MCHC 32.3 RDW 14.7 H Plt Count 323 MPV 10.1 Immature Gran % (Auto) 4.0 H Neut % (Auto) 75.1 H Lymph % (Auto) 8.1 L [place] % (Auto) 11.5 H Eos % (Auto) 0.7 Baso % (Auto) 0.6 Lymph # (Auto) 1.09 [place] # (Auto) 1.6 H Eos # (Auto) 0.1 Baso # (Auto) 0.1 Abs Immat Gran (auto) 0.54 H Absolute Neuts (auto) 10.1 H Absolute Nucleated RBC 0.000 Nucleated RBC % 0.0 Sodium 139 Potassium 4.5 Chloride 109 H Carbon Dioxide 22 Anion Gap 8 BUN 62 H Creatinine 2.50 H Estim Creat Clear Calc 18 Estimated GFR 18 L Glucose 109 Calcium 8.3 L Magnesium 1.5 L Total Bilirubin 0.3 AST 22 ALT 19 Alkaline Phosphatase 156 H Total Protein 6.0 L Albumin 2.6 L
[2024-03-24 14:00] VITALS: BP 143/62; PULSE 65; RESP 16; TEMP 36.1; O2SAT 100
[2024-03-24 17:10] VITALS: PULSE 60
[2024-03-24] MEDS: RIVAROXABAN 15 MG TABLET PO (17:10)
[2024-03-24] MEDS: SODIUM CHLORIDE 5% OPHTH OINT 3.5 GM TUBE 1 APPLIC EACH EYE (20:21)
[2024-03-24] MEDS: cefTRIAXone 2 GM/NS 100 ML 2 GM/100 ML BAG IVPB (20:21)
[2024-03-24 22:16] VITALS: BP 135/50; PULSE 63; RESP 20; TEMP 36.3; O2SAT 98
[2024-03-25 06:00] VITALS: BP 151/54; PULSE 65; RESP 18; TEMP 36.2; O2SAT 97
[2024-03-25 06:41] LABS: Basophils Absolute Auto 0.1 K/mm3 (0.0-0.1); Basophils Percent Auto 0.6 % (0.2-1.2); Eosinophils Absolute Auto 0.2 K/mm3 (0-0.3); Eosinophils Percent Auto 1.2 % (0-4.4); Hematocrit 31.2 % (37.0-47.0); Hemoglobin 9.9 g/dL (12.0-15.0); Immature Granulocyte Absolute 0.42 K/mm3 (0.00-0.031); Lymphocytes Absolute Auto 1.21 K/mm3 (0.9-3.2); Lymphocytes Percent Auto 8.7 % (18.3-44.2); Mean Corpuscular HGB Conc 31.7 g/dl (32-36); Mean Corpuscular Hemoglobin 29.3 pg (26-34); Mean Corpuscular Volume 92.3 fl (80-100); Mean Platelet Volume 10.3 fl (7.4-10.4); Monocytes Absolute Auto 1.3 K/mm3 (0.1-0.6); Monocytes Percent Auto 9.5 % (2.6-8.5); Neutrophils Absolute Auto 10.7 K/mm3 (1.3-6.7); Platelet Count Result 325 k/mm3 (150-375); Red Blood Count 3.38 M/mm3 (4.2-5.4); Red Cell Distribution Width 14.8 % (11.5-14.5); White Blood Count 13.9 K/mm3 (4.5-10.0)
[2024-03-25 06:55] LABS: Anion Gap 7 mmol/L (4-12); Blood Urea Nitrogen 52 mg/dL (7-17); Calcium 8.3 mg/dL (8.4-10.2); Carbon Dioxide 22 mmol/L (22-30); Chloride 109 mmol/L (98-107); Estimated CRCL calculation 21 ml/min; Estimated Glomerular Filt Rate 21; Glucose 123 mg/dL (65-110); Magnesium 1.6 mg/dL (1.6-2.3); Potassium 4.2 mmol/L (3.4-5.0); Sodium 138 mmol/L (137-145)
[2024-03-25 08:48] VITALS: PULSE 60
[2024-03-25] MEDS: amLODIPine BESYLATE 5 MG TABLET PO (08:48)
[2024-03-25] MEDS: TROLAMINE SALICYLATE 10% (*BKC) 113 GM CREAM 1 APPLIC TOPICAL ×2 (08:48→12:45)
[2024-03-25] MEDS: atenoloL 50 MG TABLET PO (08:48)
[2024-03-25] MEDS: SODIUM CHLORIDE 5% OP SOLN 15 ML BTL 1 DROP EACH EYE ×2 (08:48→12:45)
--- NOTE | 2024-03-25 10:45 | PCNWS ---
Weekly nutritional screen. Patient is tolerating current heart healthy diet with adequate intake 50-100%. No weight loss reported. No nutritional needs at this time.
[2024-03-25 14:00] VITALS: BP 144/47; PULSE 63; RESP 18; TEMP 36.6; O2SAT 99
--- NOTE | 2024-03-25 14:10 | P.DS_ITS ---
DS: Admitting Diagnosis Discharge Date 03/25/2024 Admitting Diagnosis Renal failure DS: Discharge Diagnosis Discharge Diagnosis (1) Acute renal failure: Code(s): N17.9 - Acute kidney failure, unspecified Status: Acute (2) Urinary tract infection: Code(s): N39.0 - Urinary tract infection, site not specified Status: Acute (3) Bladder mass: Code(s): N32.89 - Other specified disorders of bladder Status: Acute DS: Summary Hospital Course Hospital Course: # MATTHEW -Abd/Pelvis CT : Left renal atrophy. No hydronephrosis.Cystitis versus urinary bladder wall thickening from incomplete distention.Small volume pelvic ascites.1.5 cm bladder mass, recommend urology referral. -Urology evaluated and underwent cystoscopy and TURBT medium 3 cm -Cr 5.50 -->3.9( Baseline 1.30),GFR 7 BUN 99 -US renal showed diffuse cortical atrophy 24 hr urine for immunofixation -Hold Nephrotoxic drugs -Chlorthalidone on hold stop IVF and nephrology following Creatinine continues to improve down to 2.2 at discharge. Baseline around 1.3. recehck in a week. fu with nephrology # Bladder mass Urology planning for Cystoscopy with TURP 03/21/2024 Urology following. Need surveillance cysto in 3 months. Follow-up in 1-2 weeks to review pathology. pathology positive for invasive urothelial carcinoma. fu with Dr. Arnold. # Hyponatremia -Chlorthalidone on hold -Dehydration contribution -NaCl @ 75ml/hr -fractional excretion of urea -CPK , serology and immunofixation. -Nephrology continue to follow #UTI/Urosepsis with E coli bacteremia Blood and urine cultures positive for E coli continue Rocephin Repeat cultures negative to date change to augmentin to finish 10 days cousre. 2 more days # Possible pneumonia CXR showed consolidation vs atelectasis Continue Rocephin and Azithromycin monitor #Hypercoagulable state -Heparin drip -Xarelto on hold due to cystoscopy will resume -Not required a phlebotomy in the last year. -Follows up with Dr. Arnold with renal impairment, will lower xarelto to 10 mg at discharge. discussed with dr. Arnold with regards to this. # DVT prophylaxis on Heparin infusion will resume Xarelto but at a lower dose Time Spent with Patient Time attestation: Total time spent providing and/or coordinating discharge services: 35 minutes Exam Narrative: GENERAL: The patient is well developed, not in acute distress HEENT: Nonicteric sclerae, PERRLA, EOMI. Oropharynx clear. Moist mucous membranes. Conjunctivae appear well perfused. CHEST: Chest wall is nontender. HEART: Regular rate and rhythm without murmur, rubs, or gallops LUNGS: Clear to auscultation bilaterally. no respiratory distress ABDOMEN: Soft, positive bowel sounds, non-tender, no organomegaly. SKIN: No rash, no excessive bruising, petechiae, or purpura. NEUROLOGIC: Cranial nerves II-XII intact, alert and oriented x 3, no gross motor deficits EXTREMITIES: no edema, cyanosis or clubbing DS: Data Data Completed and Pending Completed studies during hospitalization: Pending at discharge 03/21/24 13:34 Surgical [PTH] Routine Labs on day of discharge: Labs from last 24 hours 03/25/24 06:26 WBC 13.9 H RBC 3.38 L Hgb 9.9 L Hct 31.2 L MCV 92.3 MCH 29.3 MCHC 31.7 L RDW 14.8 H Plt Count 325 MPV 10.3 Immature Gran % (Auto) 3.0 H Neut % (Auto) 77.0 H Lymph % (Auto) 8.7 L [place] % (Auto) 9.5 H Eos % (Auto) 1.2 Baso % (Auto) 0.6 Lymph # (Auto) 1.21 [place] # (Auto) 1.3 H Eos # (Auto) 0.2 Baso # (Auto) 0.1 Abs Immat Gran (auto) 0.42 H Absolute Neuts (auto) 10.7 H Absolute Nucleated RBC 0.000 Nucleated RBC % 0.0 Sodium 138 Potassium 4.2 Chloride 109 H Carbon Dioxide 22 Anion Gap 7 BUN 52 H D Creatinine 2.20 H Estim Creat Clear Calc 21 Estimated GFR 21 L Glucose 123 H Calcium 8.3 L Magnesium 1.6 Preliminary micro results at discharge 03/20/24 10:33 Blood Culture - Preliminary Blood 03/20/24 10:42 Blood Culture - Preliminary Blood Procedures/Treatments: Procedure Note - Detailed Date of Procedure 03/21/24 Pre-op Diagnosis Hematuria, possible bladder mass Post-op Diagnosis Same Procedure Performed Cystoscopy, bilateral retrograde pyelography, TURBT ( medium, 3 cm) Surgeon Kai Garcia MD Anesthesia General Description of Procedure patient is brought to the operative suite where she is prepped draped in routine sterile fashion while in dorsal lithotomy position after the uneventful induction of a general LMA anesthetic. Cystoscopy was undertaken with a 21 F rigid cystoscope. Bladder neck and urethra endoscopically normal. 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 The remainder the bladder mucosa is perfectly normal. Eight F bulb-tipped catheter was used to obtain bilateral retrograde pyelograms. Her right upper calices appear depressed likely from some compensatory hypertrophy of her right kidney. There was no apparent filling defects or points of obstruction. Left retrograde pyelogram was perfectly normal. There was no additional intravesical neoplasm and no foreign bodies. The right ureteral orifice and left ureteral orifice were normal and preserved throughout the remainder this procedure. Using a 24 F resectoscope I resected this neoplasm in its entirety with an attempt made to include detrusor muscle for pathological evaluation of invasion. The base and periphery was cauterized. Again this was done with care to avoid injury to the left ureteral orifice. A ll chips were removed. Resectoscope was removed. Urine Output 550 Drains Yes Pathology Yes Complications No immediate complications Condition Stable Disposition PACU Imaging Radiologist's impression: ITS Impressions Renal Ultrasound 03/18/24 12:20 IMPRESSION: 1. Moderate diffuse cortical atrophy at the left kidney. No hydronephrosis. 2. Bilateral renal cysts. Retrograde Pyelogram 03/21/24 15:32 IMPRESSION: 1. Normal bilateral retrograde pyelograms. Discharge Plan Discharge Attending physician on discharge: Steffen Carpenter Consulting providers: Trung Anderson; Kai Garcia; Chavo Arnold Discharging Clinician: Steffen Carpenter Anticipated Discharge Date/Time: 03/25/24 14:13 Patient Disposition: [facility] Activity: as tolerated Diet: heart healthy Patient Instructions: Rivaroxaban (By mouth) Follow-up/Referrals: Chavo Arnold MD [Physician] - 4 Weeks Kim Tavera NP [Primary Care Provider] - 1 Week Trung Anderson MD [Physician] - 2 Weeks Kai Garcia MD [Physician] - 4 Weeks Discharge Medications: New trolamine salicylate [Mobisyl] 10 % Cream 1 applic topical QID Qty: 35.4 0RF amoxicillin-pot clavulanate 500-125 mg tablet 1 tablet PO Q8H Qty: 6 0RF amlodipine [Norvasc] 5 mg Tablet 5 mg PO QAM Qty: 30 0RF Xarelto 10 mg tablet 10 mg PO QPM Qty: 30 0RF Rx Instructions: for 35 days Continued atenolol 50 mg tablet 50 mg PO BID Rx Instructions: TAKE 1 TABLET BY MOUTH TWICE A DAY acetaminophen [Arthritis Pain Relief (acetam)] 650 mg Tablet Extended Release 650 mg PO DAILY PRN (Reason: Pain) Claritin-D 12 Hour 5-120 mg Tablet Extended Release 12 Hr 1 tablet PO DAILY PRN (Reason: Allergic Symptoms) Multivitamin Women 50 Plus 8 mg iron-400 mcg-300 mcg Tablet 1 tablet PO DAILY sodium chloride [Romi 128] 5 % ointment 1 applic EACH EYE HS ascorbic acid (vitamin C) 500 mg capsule 500 mg PO DAILY vitamin E (dl, acetate) 450 mg (1,000 unit) capsule 400 mg PO DAILY omega 0-qih-skd-fish oil [Fish Oil] 300-1,000 mg capsule 1 cap PO DAILY sodium chloride 5 % Drops 1 drp EACH EYE TID Lutein Vison Formula Capsule 1 cap PO DAILY Discontinued chlorthalidone 25 mg tablet 25 mg PO DAILY Rx Instructions: TAKE 1 TABLET BY MOUTH EVERY DAY Xarelto 20 mg Tablet 20 mg PO QPM Other Ambulatory Orders: Complete Blood Count with Diff (Routine) Timeframe: 1 Week Location: Determined by Patient Ordered By: Steffen Carpenter Comprehensive Metabolic Panel (Routine) Timeframe: 1 Week Location: Determined by Patient Ordered By: Steffen Carpenter Date of admission: 03/18/24 02:42 Primary Care Provider: Kim Tavera Admitting Provider: Kennedy Sierra V. Attending physician on admission: Kennedy Sierra V. Condition: Improved
[2024-03-26 12:42] LABS: Lambda Light Chain 55.1 mg/L (5.7-26.3)
[2024-03-27 12:13] LABS: Albumin 31 %
== END 2024-03-25 17:35 | DRG 668 ==
LOC: ANHIMU 03-21 01:22 → ANH3MED 03-25 14:14 → ANHIMU 03-27 14:00
PROVIDERS: General Practice; Internal Medicine; Internal Medicine Nephrology; Physician Assistant; Urology; Admitting Provider Internal Medicine; PCP Nurse Practitioner Family; Visit Provider Internal Medicine
PROC: 0TBB8ZZ Excision of Bladder, Via Natural or Artificial Opening Endoscopic (ICD-10-PCS; CPT 52352; principal; 2024-03-21 13:30)
PROC: 0TBB8ZZ Excision of Bladder, Via Natural or Artificial Opening Endoscopic (ICD-10-PCS; 2024-03-21 13:30)
DX: N17.9 Acute kidney failure, unspecified (principal); J18.9 Pneumonia, unspecified organism; E87.1 Hypo-osmolality and hyponatremia; N39.0 Urinary tract infection, site not specified; D68.59 Other primary thrombophilia; R78.81 Bacteremia; C67.8 Malignant neoplasm of overlapping sites of bladder; B96.20 Unspecified Escherichia coli [E. coli] as the cause of diseases classified elsewhere; I12.9 Hypertensive chronic kidney disease with stage 1 through stage 4 chronic kidney disease, or unspecified chronic kidney disease; N32.89 Other specified disorders of bladder; N18.32 Chronic kidney disease, stage 3b; E78.5 Hyperlipidemia, unspecified; R31.9 Hematuria, unspecified; Z86.718 Personal history of other venous thrombosis and embolism; Z86.711 Personal history of pulmonary embolism; Z79.01 Long term (current) use of anticoagulants; M17.0 Bilateral primary osteoarthritis of knee; Z90.49 Acquired absence of other specified parts of digestive tract; Z90.710 Acquired absence of both cervix and uterus
CPT/HCPCS: 36415; 74420; 76775; 80048; 80053; 82533; 82550; 82570; 82948; 83605; 83735; 83883; 83930; 83935; 83970; 84100; 84155; 84156; 84165; 84295; 84300; 84443; 84540; 85025; 85610; 85652; 85730; 86038; 86039; 86160; 86162; 86334; 86335; 87040; 88305; 93005; 93306; 97110; 97116; 97161; 97165; 97530; 97535; A9270; C1758; C1769; J0456; J0696; J1100; J1644; J2003; J2405; J2704; J3010; J3475; J7030; J7120; Q9966

== ENCOUNTER 2024-04-11 10:00 | Outpatient (NON) | payer MEDICARE, OTHER, SELFPAY ==
[2024-04-11 10:29] LABS: Basophils Absolute Auto 0.12 K/mm3 (0.00-0.10); Basophils Percent Auto 1.5 % (0.0-1.0); Eosinophils Absolute Auto 0.36 K/mm3 (0.02-0.50); Eosinophils Percent Auto 4.5 % (1.0-6.0); Hematocrit 31.4 % (35.0-42.0); Hemoglobin 10.1 g/dL (11.7-13.8); Immature Granulocyte Absolute 0.04 K/mm3 (0.00-0.00); Immature Granulocyte Percent A 0.5 % (0.0-0.0); Lymphocytes Absolute Auto 2.07 K/mm3 (1.10-4.50); Mean Corpuscular HGB Conc 32.2 g/dL (32-36); Mean Corpuscular Hemoglobin 29.2 pg (27.0-31.0); Mean Corpuscular Volume 90.8 fL (78.0-102.0); Mean Platelet Volume 9.8 fl (9.2-11.8); Monocytes Absolute Auto 0.93 K/mm3 (0.10-0.90); Monocytes Percent Auto 11.7 % (2.0-11.0); Neutrophils Absolute Auto 4.43 K/mm3 (1.70-7.20); Neutrophils Percent Auto 55.8 % (50.0-70.0); Platelet Count Result 449 K/mm3 (150-420); Red Blood Count 3.46 M/mm3 (4.20-5.40); Red Cell Distribution Width 14.4 % (11.6-14.4)
[2024-04-11 10:29] LABS: Add Urine Microscopic? NO; Appearance Urine Clear (Clear); Bilirubin Urine Negative (Negative); Blood Urine Trace-intact (Negative); Color Urine Light Yellow (Yellow); Glucose Urine UA Negative (Negative); Ketones Urine Negative (Negative); Leukocyte Esterase Ur Negative LEU/UL (Negative); Nitrate Urine Negative (Negative); Protein Urine Negative (Negative); Urobilinogen Urine 0.2 mg/dL (0.2-1.0)
[2024-04-11 10:49] LABS: Alanine Aminotransferase 18 U/L (14-59); Albumin Level 2.6 g/dL (3.4-5.0); Alkaline Phosphatase 126 U/L (46-116); Anion Gap 10 mmol/L (4-12); Aspartate Amino Transferase 28 U/L (15-37); Bilirubin,Total 0.2 mg/dL (0.00-1.00); Blood Urea Nitrogen 20 mg/dL (7-18); Calcium 8.3 mg/dL (8.5-10.1); Carbon Dioxide 28 mmol/L (21-32); Chloride 103 mmol/L (98-108); Estimated Glomerular Filt Rate 29; Glucose 107 mg/dL (70-99); Osmolality Calculated 294 mOsm/kg (285-295); Potassium 3.2 mmol/L (3.5-5.1); Sodium 141 mmol/L (136-145); Total Protein 7.1 g/dL (6.4-8.2)
== END 2024-04-11 10:01 | disposition home or self-care (01) ==
LOC: CHSHH 10:05
PROVIDERS: PCP Nurse Practitioner Family; Visit Provider Internal Medicine
DX: N17.9 Acute kidney failure, unspecified (principal); D75.1 Secondary polycythemia; Z87.898 Personal history of other specified conditions
CPT/HCPCS: 80053; 81003; 85025

== ENCOUNTER 2024-04-17 09:43 | Outpatient (CLI) | payer MEDICARE, SELFPAY ==
[2024-04-17 10:42] LABS: Albumin Level 2.9 g/dL (3.4-5.0); Anion Gap 11 mmol/L (4-12); Blood Urea Nitrogen 23 mg/dL (7-18); Calcium 8.9 mg/dL (8.5-10.1); Carbon Dioxide 28 mmol/L (21-32); Chloride 103 mmol/L (98-108); Estimated Glomerular Filt Rate 26; Glucose 144 mg/dL (70-99); Osmolality Calculated 300 mOsm/kg (285-295); Phosphorus 3.7 mg/dL (2.6-4.7); Potassium 2.9 mmol/L (3.5-5.1); Sodium 142 mmol/L (136-145)
[2024-04-17 10:50] LABS: Rheumatoid Factor Screen Negative (Negative)
[2024-04-17 11:12] LABS: Erythrocyte Sedimentation Rate 52 mm/hr (0-20)
[2024-04-19 04:44] LABS: SM Antibody <1.0 NEG AI (<1.0 NEG); SM/RNP Antibody <1.0 NEG AI (<1.0 NEG); SS-A <1.0 NEG AI (<1.0 NEG); SS-B <1.0 NEG AI (<1.0 NEG)
[2024-04-19 15:33] LABS: Anti Glomerular Basement Memb <1.0 AI
[2024-04-20 06:29] LABS: ANCA Screen NEGATIVE (NEGATIVE)
== END 2024-04-17 09:44 | disposition home or self-care (01) ==
PROVIDERS: PCP Nurse Practitioner Family; Visit Provider Internal Medicine Nephrology
DX: N18.32 Chronic kidney disease, stage 3b (principal); R76.0 Raised antibody titer
CPT/HCPCS: 36415; 80069; 82595; 83520; 85652; 86036; 86038; 86039; 86225; 86235; 86430

== ENCOUNTER 2024-05-03 10:25 | Outpatient (CLI) | payer MEDICARE, SELFPAY ==
[2024-05-03 11:52] LABS: Albumin Level 3.3 g/dL (3.4-5.0); Anion Gap 10 mmol/L (4-12); Blood Urea Nitrogen 29 mg/dL (7-18); Carbon Dioxide 27 mmol/L (21-32); Chloride 103 mmol/L (98-108); Estimated Glomerular Filt Rate 24; Glucose 100 mg/dL (70-99); Osmolality Calculated 295 mOsm/kg (285-295); Phosphorus 4.5 mg/dL (2.6-4.7); Potassium 4.5 mmol/L (3.5-5.1); Sodium 140 mmol/L (136-145)
[2024-05-03 11:56] LABS: Erythrocyte Sedimentation Rate 48 mm/hr (0-20)
[2024-05-03 11:57] LABS: Rheumatoid Factor Screen Negative (Negative)
[2024-05-04 07:09] LABS: SM Antibody <1.0 NEG AI (<1.0 NEG); SM/RNP Antibody <1.0 NEG AI (<1.0 NEG); SS-A <1.0 NEG AI (<1.0 NEG); SS-B <1.0 NEG AI (<1.0 NEG)
[2024-05-05 04:04] LABS: ANCA Screen NEGATIVE (NEGATIVE)
== END 2024-05-03 10:26 | disposition home or self-care (01) ==
LOC: CHSLAB 10:28
PROVIDERS: PCP Nurse Practitioner Family; Visit Provider Internal Medicine Nephrology
DX: N18.32 Chronic kidney disease, stage 3b (principal); R76.0 Raised antibody titer
CPT/HCPCS: 36415; 80069; 82595; 85652; 86036; 86225; 86235; 86430

== ENCOUNTER 2024-05-14 15:27 | Outpatient (NON) | payer MEDICARE, SELFPAY ==
[2024-05-14 16:02] LABS: Add Urine Microscopic? YES; Appearance Urine Clear (Clear); Bilirubin Urine Negative (Negative); Blood Urine Negative (Negative); Color Urine Light Yellow (Yellow); Glucose Urine UA Negative (Negative); Ketones Urine Negative (Negative); Leukocyte Esterase Ur Trace (Negative); Nitrate Urine Negative (Negative); Protein Urine Negative (Negative); Urobilinogen Urine 0.2 mg/dL (0.2-1.0)
[2024-05-14 16:04] LABS: Creatinine Urine 54.45 mg/dL (40-278); Total Protein Urine Random 18.8 mg/dL (0.0-11.9); Ur Ttl Prot Creatinine Ratio 0.35 mg/mg (0-0.20)
[2024-05-14 16:19] LABS: Bacteria Urine Rare /hpf; RBC Urine 0-2 /hpf (0-2); Squamous Epithelial Cell Urine Rare /hpf (Few); WBC Urine 0-3 /hpf (0-3)
== END 2024-05-14 15:28 | disposition home or self-care (01) ==
LOC: CHSHH 15:29
PROVIDERS: Visit Provider Internal Medicine Nephrology
DX: N18.32 Chronic kidney disease, stage 3b (principal)
CPT/HCPCS: 81001; 82570; 84156

== ENCOUNTER 2024-05-21 10:08 | Outpatient (CLI) | payer MEDICARE, SELFPAY ==
[2024-05-21 10:20] LABS: Basophils Absolute Auto 0.09 K/mm3 (0.00-0.10); Eosinophils Absolute Auto 0.21 K/mm3 (0.02-0.50); Eosinophils Percent Auto 2.2 % (1.0-6.0); Hematocrit 35.7 % (35.0-42.0); Immature Granulocyte Absolute 0.03 K/mm3 (0.00-0.00); Immature Granulocyte Percent A 0.3 % (0.0-0.0); Lymphocytes Absolute Auto 3.08 K/mm3 (1.10-4.50); Lymphocytes Percent Auto 32.9 % (18.0-42.0); Mean Corpuscular HGB Conc 30.8 g/dL (32-36); Mean Corpuscular Hemoglobin 28.6 pg (27.0-31.0); Mean Platelet Volume 9.6 fl (9.2-11.8); Monocytes Absolute Auto 0.77 K/mm3 (0.10-0.90); Monocytes Percent Auto 8.2 % (2.0-11.0); Neutrophils Absolute Auto 5.17 K/mm3 (1.70-7.20); Neutrophils Percent Auto 55.4 % (50.0-70.0); Platelet Count Result 277 K/mm3 (150-420); Red Blood Count 3.84 M/mm3 (4.20-5.40); Red Cell Distribution Width 14.2 % (11.6-14.4); White Blood Count 9.4 K/mm3 (4.8-10.8)
[2024-05-21 11:17] LABS: Anion Gap 11 mmol/L (4-12); Blood Urea Nitrogen 32 mg/dL (7-18); Carbon Dioxide 26 mmol/L (21-32); Chloride 103 mmol/L (98-108); Estimated Glomerular Filt Rate 23; Glucose 149 mg/dL (70-99); Osmolality Calculated 299 mOsm/kg (285-295); Potassium 4.5 mmol/L (3.5-5.1); Sodium 140 mmol/L (136-145)
== END 2024-05-21 10:09 | disposition home or self-care (01) ==
PROVIDERS: PCP Nurse Practitioner Family; Visit Provider Internal Medicine Hematology & Oncology
DX: D68.69 Other thrombophilia (principal)
CPT/HCPCS: 36415; 80048; 85025

== ENCOUNTER 2024-07-30 09:43 | Outpatient (CLI) | payer MEDICARE, SELFPAY ==
[2024-07-30 09:54] LABS: Hematocrit 40.2 % (35.0-42.0); Hemoglobin 12.4 g/dL (11.7-13.8); Mean Corpuscular HGB Conc 30.8 g/dL (32-36); Mean Corpuscular Hemoglobin 28.9 pg (27.0-31.0); Mean Corpuscular Volume 93.7 fL (78.0-102.0); Mean Platelet Volume 9.5 fl (9.2-11.8); Platelet Count Result 241 K/mm3 (150-420); Red Blood Count 4.29 M/mm3 (4.20-5.40); Red Cell Distribution Width 14.2 % (11.6-14.4); White Blood Count 7.7 K/mm3 (4.8-10.8)
[2024-07-30 10:09] LABS: Creatinine Urine 148.99 mg/dL (40-278); Total Protein Urine Random 24.2 mg/dL (0.0-11.9); Ur Ttl Prot Creatinine Ratio 0.16 mg/mg (0-0.20)
[2024-07-30 10:33] LABS: Albumin Level 3.5 g/dL (3.4-5.0); Anion Gap 8 mmol/L (4-12); Blood Urea Nitrogen 33 mg/dL (7-18); Calcium 8.7 mg/dL (8.5-10.1); Carbon Dioxide 28 mmol/L (21-32); Chloride 103 mmol/L (98-108); Estimated Glomerular Filt Rate 25; Glucose 92 mg/dL (70-99); Osmolality Calculated 295 mOsm/kg (285-295); Phosphorus 3.7 mg/dL (2.6-4.7); Potassium 4.7 mmol/L (3.5-5.1); Sodium 139 mmol/L (136-145)
--- OUTSIDE RECORDS SUMMARY | 2024-07-30 11:06 | XMS_ITS | Clinical Summary ---
Author Organization [facility] Address [address] [place] [address] Care Team Providers Care Bilingual Medical Assistant Name Role Phone ShalaDarryl danielle Primary Care Provider [phone] Allergies No known active allergies Medications atenolol (TENORMIN) 50 mg tablet Take 50 mg by mouth 2 times daily. Active multivitamin (DAILY-OSKAR) tablet Take 1 Tablet by mouth daily. Active sodium chloride (KALIE-128) 5 % ointment Administer 0.25 Inches in both eyes nightly as needed. Active sodium chloride (KALIE 128) 2 % solution 1 Drop PRN. Active FLUZONE HIGH-DOSE , PF, 180 mcg/0.5 mL Syringe syringe TO BE ADMINISTERED BY PHARMACIST FOR IMMUNIZATION 0 8 Active PNEUMOVAX 23 25 mcg/0.5 mL Syringe TO BE ADMINISTERED BY PHARMACIST FOR IMMUNIZATION 0 8 Active loratadine-pseu doephedrine (CLARITIN-D) 5-120 mg Extended Release 12 hour tablet Take 1 Tablet by mouth 2 times daily. Active Arthritis Pain Relief 0.075 % Cream 1 APPLIC TOPICALLY THREE TIMES A DAY DO NOT WASH AREA FOR AT LEAST 30 MIN AFTER APPLICATION 2 Active chlorthalidone (HYGROTON) 25 mg tablet 2 Active gabapentin (NEURONTIN) 300 mg capsule 2 Active vit C,E-Ql-lzqgs-kristal tein-zeaxan (PreserVision AREDS-2) 250-90-40-1 mg Capsule 2 Active vitamin E 400 unit capsule Take 400 Units by mouth daily. Active omega-3 fatty acids-fish oil 300-1,000 mg Capsule Take 1 Capsule by mouth daily. Active POTASSIUM CHLORIDE ORAL Take by mouth. A ctive acetaminophen (TYLENOL EXTRA STRENGTH ORAL) Take by mouth. Active rivaroxaban (Xarelto) 20 mg TabletIndicatio ns:Bilateral pulmonary embolism (CMS/HCC) TAKE 1 TABLET BY MOUTH EVERY DAY WITH SUPPER 90 Tablet 3 5 Active Active Problems Problem Noted Date Diagnosed Date Other thrombophilia 07/26/2019 Synovial cyst of left popliteal space 03/01/2017 Erythrocytosis 03/01/2017 Bilateral pulmonary embolism 04/06/2016 Encounters Date Type Department Care Team Description 06/25/2024 External Device Data STL ABSTRACTION Provider, Abstract 06/04/2024 External Device Data STL ABSTRACTION Provider, Abstract 05/29/2024 2:30 PM PATIENT FLOW COORDINATOR Office Visit [facility] Oncology and Hematology [facility] [address] [place] [address] Chavo Arnold MD Chronic anemia (Primary Dx) 05/29/2024 External Device Data STL ABSTRACTION Provider, Abstract 05/29/2024 External Device Data STL ABSTRACTION Provider, Abstract 05/29/2024 Refill [facility] Oncology and [facility] [address] [place] [address] Chavo Arnold MD Bilateral pulmonary embolism (CMS/HCC) 05/21/2024 Orders Only [facility] Oncology and [facility] [address] [place] [address] Chavo Arnold MD from Last 3 Months Family History Medical History Relation Name Comments Heart Disease Brother 2 Heart Disease Brother 3 Cancer Sister 4 Relation Name Status Comments Brother 1 Alive Brother 2 Brother 3 Alive Brother 4 Alive Father Mother Sister 1 Alive Sister 2 Alive Sister 3 Alive Sister 4 Social History Tobacco Use Types Packs/Day Years Used Date Smoking Tobacco: Never Alcohol Use Standard Drinks/Week Comments Yes 0 (1 standard drink = 0.6 oz pur e alcohol) Comments No Sex and Gender Information Value Date Recorded Sex Assigned at Not on file Legal Sex Female 11:21 AM PATIENT FLOW COORDINATOR Gender Identity Not on file Sexual Orientation Not on file Last Filed Vital Signs Vital Sign Reading Time Taken Comments Blood Pressure 127/77 05/29/2024 2:00 PM PATIENT FLOW COORDINATOR Pulse 60 05/29/2024 2:00 PM PATIENT FLOW COORDINATOR Temperature 36.4 C (97.5 F) 05/29/2024 2:00 PM PATIENT FLOW COORDINATOR Respiratory Rate 15 05/29/2024 2:00 PM PATIENT FLOW COORDINATOR Oxygen Saturation 97% 05/29/2024 2:00 PM PATIENT FLOW COORDINATOR Inhaled Oxygen Concentration - - Weight 80.3 kg (177 lb) 05/29/2024 2:00 PM PATIENT FLOW COORDINATOR Height 165.1 cm (5' 5 ) 11/18/2021 1:38 PM CDT Body Mass Index 29.45 11/18/2021 1:38 PM CDT Plan of Treatment Upcoming Encounters Date Type Department Care Team (Late st Contact Info) Description 09/05/2024 1:15 PM CDT Office Visit [facility] Oncology and Hematology - [place] [address] [facility] [address] [place] [address] Chavo Arnold MD [address] [facility] [address] [place] [address] Health Maintenance Due Date Last Done Comments DTAP/TDAP/TD VACCINES (1 - Tdap) 07/25/1959 Traditional Medicare (ACO) Annual Wellness Visit 07/24 PNEUMOCOCCAL VACCINE 50+ YEARS (1 of 1 - PCV) 07/24/18 91 ZOSTER VACCINE (1 of 2) 1990 OSTEOPOROSIS SCREENING 2005 RSV VACCINE (60+ or ) (1 - 1-dose 75+ series) 07/25/2015 INFLUENZA VACCINE (#1) 2023 Procedures Procedure Name Priority Date/Time Associated Diagnosis Comments BASIC METABOLIC PANEL Routine 05/21/2024 3:22 PM PATIENT FLOW COORDINATOR CBC WITH DIFFERENTIAL Routine 05/21/2024 1:40 PM PATIENT FLOW COORDINATOR from Last 3 Months Results * BASIC METABOLIC PANEL (05/21/2024 3:22 PM PATIENT FLOW COORDINATOR) Blood us Chavo Arnold MD CHEMISTRY ORDERABLES Final Resu lt * CBC WITH DIFFERENTIAL (05/21/2024 1:40 PM PATIENT FLOW COORDINATOR) Blood us Chavo Arnold MD HEMATOLOGY ORDERABLES Final Res ult from Last 3 Months Insurance MEDICARE PART A AND B MEDICARE PART A AND B GENERIC PAYOR Member Subscriber Plan / Payer (Ef fective 2020-Present) Name:Malia Selby Relation to Subscriber:Self Name:Malia Selby Payer ID:Not on file Group ID:Not on file Type:Supplemental Address: [address] [place] [address] Care Teams Bilingual Medical Assistant Relationship Specialty Start Date End Date Darryl Vanegas DO [address] [place] [address] PCP - General Family Practice 02/21/24
[2024-07-31 14:48] LABS: Parathyroid Intact 152 pg/mL (16-77)
== END 2024-07-30 09:44 | disposition home or self-care (01) ==
LOC: CHSLAB 09:45
PROVIDERS: PCP Nurse Practitioner Family; Visit Provider Internal Medicine Nephrology
DX: R76.0 Raised antibody titer (principal); N18.32 Chronic kidney disease, stage 3b; D75.1 Secondary polycythemia
CPT/HCPCS: 36415; 80069; 82570; 83970; 84156; 85027

== ENCOUNTER 2024-11-05 09:55 | Outpatient (CLI) | payer MEDICARE, OTHER, SELFPAY ==
--- OUTSIDE RECORDS SUMMARY | 2024-11-05 10:06 | XMS_ITS | Clinical Summary ---
Author Organization [facility] Address [address] [place] [address] Care Team Providers Care Shift Production Associate Name Role Phone ShalaDarryl danielle Primary Care Provider [phone] Allergies No known active allergies Medications atenolol [...] (NEURONTIN) 300 mg capsule 2 Active vit C,C-Io-kfxrx-kristal tein-zeaxan (PreserVision AREDS-2) 250-90-40-1 mg Capsule 2 [...] EVERY DAY WITH SUPPER 90 Tablet 3 Active Active Problems Problem Noted Date Diagnosed Date Other thrombophilia 07/26/2019 Synovial cyst of left popliteal space 03/01/2017 Erythrocytosis 03/01/2017 Bilateral pulmonary embolism 04/06/2016 Encounters Date Type Department Care Team Description 10/23/2024 External Device Data STL ABSTRACTION Provider, Abstract 10/22/2024 External Device Data STL ABSTRACTION Provider, Abstract 09/26/2024 External Device Data STL ABSTRACTION Provider, Abstract 09/25/2024 External Device Data STL ABSTRACTION Provider, Abstract 09/24/2024 External Device Data STL ABSTRACTION Provider, Abstract from Last 3 Months Family History Medical [...] on file Legal Sex Female 11:21 AM FINGERNAIL SCULPTOR Gender Identity Not on file Sexual Orientation Not on file Last Filed Vital Signs Vital Sign Reading Time Taken Comments Blood Pressure 127/77 05/29/2024 2:00 PM FINGERNAIL SCULPTOR Pulse 60 05/29/2024 2:00 PM FINGERNAIL SCULPTOR Temperature 36.4 C (97.5 F) 05/29/2024 2:00 PM FINGERNAIL SCULPTOR Respiratory Rate 15 05/29/2024 2:00 PM FINGERNAIL SCULPTOR Oxygen Saturation 97% 05/29/2024 2:00 PM FINGERNAIL SCULPTOR Inhaled Oxygen Concentration - - Weight 80.3 kg (177 lb) 05/29/2024 2:00 PM FINGERNAIL SCULPTOR Height 165.1 cm (5' 5) 11/18/2021 1:38 PM CDT Body Mass Index 29.45 11/18/2021 1:38 PM CDT Plan of Treatment Upcoming Encounters Date Type Department Care Team (Late st Contact Info) Description 11/06/2024 1:15 PM CDT Office Visit [facility] Oncology and Hematology - [place] [address] [facility] [address] [place] [address] Chavo Arnold MD [address] [facility] [address] [place] [address] Health Maintenance Due Date Last Done Comments DTAP/TDAP/TD VACCINES (1 - Tdap) 07/25/1959 PNEUMOCOCCAL VACCINE 50+ YEARS (1 of 1 - PCV) 07/24/18 ZOSTER VACCINE (1 of 2) 1990 OSTEOPOROSIS SCREENING 2005 RSV VACCINE (60+ or ) (1 - 1-dose 75+ series) 07/25/2015 INFLUENZA VACCINE (#1) 2024 Insurance MEDICARE PART A AND B MEDICARE PART A AND B GENERIC PAYOR [facility] [facility] Care Teams Shift Production Associate Relationship Specialty Start Date End Date Darryl Vanegas DO [address] [place] [address] PCP - General Family Practice 02/21/24
[2024-11-05 10:08] LABS: Hematocrit 40.9 % (35.0-42.0); Hemoglobin 12.8 g/dL (11.7-13.8); Immature Granulocyte Percent A 0.3 % (0.0-0.0); Lymphocytes Absolute Auto 1.95 K/mm3 (1.10-4.50); Mean Corpuscular HGB Conc 31.3 g/dL (32-36); Mean Corpuscular Hemoglobin 29.6 pg (27.0-31.0); Mean Corpuscular Volume 94.5 fL (78.0-102.0); Nucleated Red Blood Cells Absolute Auto 0.00 K/mm3 (0.00-0.00); Nucleated Red Blood Cells Perc 0.0 % (0-0.0); Platelet Count Result 234 K/mm3 (150-420); Red Blood Count 4.33 M/mm3 (4.20-5.40); White Blood Count 6.7 K/mm3 (4.8-10.8)
[2024-11-05 10:24] LABS: Anion Gap 6 mmol/L (4-12); Blood Urea Nitrogen 26 mg/dL (7-17); Calcium 8.7 mg/dL (8.4-10.2); Carbon Dioxide 27 mmol/L (22-30); Chloride 102 mmol/L (98-107); Estimated Glomerular Filt Rate 33; Glucose 120 mg/dL (65-110); Iron 99 ug/dL (37-170); Osmolality Calculated 285 mOsm/kg (285-295); Potassium 4.2 mmol/L (3.4-5.0); Sodium 135 mmol/L (137-145)
[2024-11-05 10:34] LABS: Percent Iron Saturation 33 % (20-50)
[2024-11-05 11:00] LABS: Ferritin 44.30 ng/mL (11.1-264)
== END 2024-11-05 09:56 | disposition home or self-care (01) ==
LOC: CHSLAB 09:57
PROVIDERS: PCP Nurse Practitioner Family; Visit Provider Internal Medicine Hematology & Oncology
DX: D64.9 Anemia, unspecified (principal)
CPT/HCPCS: 36415; 80048; 82728; 83540; 83550; 85025

== ENCOUNTER 2024-11-26 10:29 | Outpatient (CLI) | payer MEDICARE, OTHER, SELFPAY ==
[2024-11-26 10:45] LABS: Hematocrit 40.4 % (35.0-42.0); Hemoglobin 12.7 g/dL (11.7-13.8); Mean Corpuscular HGB Conc 31.4 g/dL (32-36); Mean Corpuscular Hemoglobin 30.0 pg (27.0-31.0); Mean Corpuscular Volume 95.5 fL (78.0-102.0); Platelet Count Result 246 K/mm3 (150-420); Red Blood Count 4.23 M/mm3 (4.20-5.40); White Blood Count 7.4 K/mm3 (4.8-10.8)
[2024-11-26 11:29] LABS: Albumin Level 3.4 g/dL (3.5-5.1); Anion Gap 6 mmol/L (4-12); Blood Urea Nitrogen 28 mg/dL (7-17); Calcium 8.6 mg/dL (8.4-10.2); Carbon Dioxide 23 mmol/L (22-30); Chloride 104 mmol/L (98-107); Estimated Glomerular Filt Rate 32; Glucose 138 mg/dL (65-110); Osmolality Calculated 283 mOsm/kg (285-295); Potassium 4.7 mmol/L (3.4-5.0); Sodium 133 mmol/L (137-145)
[2024-11-26 12:19] LABS: Total Protein Urine Random 11 mg/dL; Ur Ttl Prot Creatinine Ratio 0.09 mg/mg (0-0.20)
== END 2024-11-26 10:30 | disposition home or self-care (01) ==
PROVIDERS: PCP Nurse Practitioner Family; Visit Provider Internal Medicine Nephrology
DX: N18.32 Chronic kidney disease, stage 3b (principal); R31.9 Hematuria, unspecified
CPT/HCPCS: 36415; 80069; 82570; 83970; 84156; 85027

== ENCOUNTER 2024-12-25 11:07 | Outpatient (CLI) | payer MEDICARE, SELFPAY ==
--- OUTSIDE RECORDS SUMMARY | 2024-12-25 11:44 | XMS_ITS | Clinical Summary ---
Author Organization [facility] Address [address] [place] [address] Care Team Providers Care Furniture Removalist'S Assistant Name Role Phone ShalaDarryl danielle Primary Care Provider [phone] Allergies No known active allergies Medications atenolol [...] (NEURONTIN) 300 mg capsule 2 Active vit C,T-Th-kwjfe-kristal tein-zeaxan (PreserVision AREDS-2) 250-90-40-1 mg Capsule 2 [...] Encounters Date Type Department Care Team Description 12/24/2024 External Device Data STL ABSTRACTION Provider, Abstract 12/11/2024 External Device Data STL ABSTRACTION Provider, Abstract 11/20/2024 External Device Data STL ABSTRACTION Provider, Abstract 11/20/2024 External Device Data STL ABSTRACTION Provider, Abstract 11/20/2024 External Device Data STL ABSTRACTION Provider, Abstract 11/19/2024 External Device Data STL ABSTRACTION Provider, Abstract 11/06/2024 1:15 PM CDT Office Visit [facility] Oncology and Hematology [facility] [address] [place] [address] Chavo Arnold MD Chronic anemia (Primary Dx) 11/06/2024 Orders Only [facility] Oncology and Hematology [facility] [address] [place] [address] Chavo Arnold MD 10/23/2024 External Device Data STL ABSTRACTION Provider, [...] Packs/Day Years Used Date Smoking Tobacco: Never Tobacco Cessation:Counseling Given: Not Answered Alcohol Use Standard Drinks/Week Comments Yes 0 (1 standard drink = 0.6 oz pur e alcohol) Comments No Sex and Gender Information Value Date Recorded Sex Assigned at Not on file Legal Sex Female 11:21 AM STEEL MELTER Gender Identity Not on file Sexual Orientation Not on file Last Filed Vital Signs Vital Sign Reading Time Taken Comments Blood Pressure 130/75 11/06/2024 12:58 PM CDT Pulse 62 11/06/2024 12:58 PM CDT Temperature 36.2 C (97.2 F) 11/06/2024 12:58 PM CDT Respiratory Rate 15 11/06/2024 12:58 PM CDT Oxygen Saturation 94% 11/06/2024 12:58 PM CDT Inhaled Oxygen Concentration - - Weight 73.1 kg (161 lb 3.2 oz) 11/06/2024 12:58 PM CDT Height 165.1 cm (5' 5) 11/18/2021 1:38 PM CDT Body Mass Index 26.83 11/18/2021 1:38 PM CDT Plan of Treatment Upcoming Encounters Date Type Department Care Team (Late st Contact Info) Description 05/12/2025 1:00 PM STEEL MELTER Office Visit [facility] Oncology and Hematology - [place] [address] [facility] [address] [place] [address] Chavo Arnold MD [address] [facility] [address] [place] [address] Health Maintenance Due Date Last Done Comments DTAP/TDAP/TD VACCINES (1 - Tdap) 07/25/1959 PNEUMOCOCCAL VACCINE 50+ YEARS (1 of 1 - PCV) 07/24/18 91 ZOSTER VACCINE (1 of 2) 1990 OSTEOPOROSIS SCREENING 2005 RSV VACCINE (60+ or ) (1 - 1-dose 75+ series) 07/25/2015 INFLUENZA VACCINE (#1) 2024 Procedures Procedure Name Priority Date/Time Associated Diagnosis Comments BASIC METABOLIC PANEL Routine 11/05/2024 10:33 AM CDT BASIC METABOLIC PANEL Routine 11/05/2024 7:59 AM CDT COMPREHENSIVE METABOLIC PANEL Routine 11/05/2024 7:48 AM CDT from Last 3 Months Results * BASIC METABOLIC PANEL (11/05/2024 10:33 AM CDT) Only the most recent of2 resultswithin the time period is included. Blood us Chavo Arnold MD CHEMISTRY ORDERABLES Final Resu lt * COMPREHENSIVE METABOLIC PANEL (11/05/2024 7:48 AM CDT) Blood us Chavo Arnold MD CHEMISTRY ORDERABLES Final Resu lt from Last 3 Months Insurance MEDICARE PART A AND B MEDICARE PART A AND B GENERIC PAYOR [employer] [facility] Care Teams Furniture Removalist'S Assistant Relationship Specialty Start Date End Date Darryl Vanegas DO [address] [place] [address] PCP - General Family Practice 02/21/24
--- OUTSIDE RECORDS SUMMARY | 2024-12-25 11:44 | XMS_ITS | Encounter Summary ---
Author Organization [facility] Address [address] [place] [address] Care Team Providers Care Lighter Name Role Phone Darryl Vanegas DO Primary Care Provider [phone] Encounter Details Date Type Department Care Team (Late st Contact Info) Description 12/24/2024 External Device Data STL ABSTRACTION Provider, Abstract NO ADDRESS ON FILE Social History Tobacco Use Types Packs/Day Years Used Date Smoking Tobacco: Never Alcohol Use Standard Drinks/Week Comments Yes 0 (1 standard drink = 0.6 oz pur e alcohol) Comments No Sex and Gender Information Value Date Recorded Sex Assigned at Not on file Legal Sex Female 11:21 AM HOSPITAL INTERN Gender Identity Not on file Sexual Orientation Not on file documented as of this encounter Plan of Treatment Upcoming Encounters Date Type Department Care Team (Late Contact Info) Description 05/12/2025 1:00 PM HOSPITAL INTERN Office Visit [facility] Oncology and Hematology - [place] [address] [facility] [address] [place] [address] Chavo Arnold MD [address] [facility] [address] [place] [address] documented as of this encounter Visit Diagnoses Not on filedocumented in this encounter Care Teams Lighter Relationship Specialty Start Date End Date Darryl Vanegas DO [address] [place] [address] PCP - General Family Practice 02/21/24 documented as of this encounter
[2024-12-25 12:24] LABS: Anion Gap 7 mmol/L (4-12); Blood Urea Nitrogen 32 mg/dL (7-17); Calcium 9.3 mg/dL (8.4-10.2); Carbon Dioxide 27 mmol/L (22-30); Chloride 100 mmol/L (98-107); Estimated Glomerular Filt Rate 32; Glucose 100 mg/dL (65-110); Osmolality Calculated 284 mOsm/kg (285-295); Potassium 5.1 mmol/L (3.4-5.0); Sodium 134 mmol/L (137-145)
== END 2024-12-25 11:08 | disposition home or self-care (01) ==
LOC: CHSLAB 11:10
PROVIDERS: PCP Nurse Practitioner Family; Visit Provider Internal Medicine Nephrology
DX: N18.32 Chronic kidney disease, stage 3b (principal)
CPT/HCPCS: 36415; 80048

== ENCOUNTER 2025-01-08 10:53 | Outpatient (CLI) | payer MEDICARE, SELFPAY ==
[2025-01-08 11:35] LABS: Anion Gap 8 mmol/L (4-12); Blood Urea Nitrogen 31 mg/dL (7-17); Calcium 8.9 mg/dL (8.4-10.2); Carbon Dioxide 26 mmol/L (22-30); Chloride 100 mmol/L (98-107); Estimated Glomerular Filt Rate 28; Glucose 109 mg/dL (65-110); Osmolality Calculated 285 mOsm/kg (285-295); Potassium 3.9 mmol/L (3.4-5.0); Sodium 134 mmol/L (137-145)
== END 2025-01-08 10:54 | disposition home or self-care (01) ==
LOC: CHSLAB 10:54
PROVIDERS: PCP Nurse Practitioner Family; Visit Provider Internal Medicine Nephrology
DX: N18.32 Chronic kidney disease, stage 3b (principal)
CPT/HCPCS: 36415; 80048

== ENCOUNTER 2025-02-13 10:06 | Outpatient (CLI) | payer MEDICARE, OTHER, SELFPAY ==
[2025-02-13 10:27] LABS: Hematocrit 38.8 % (35.0-42.0); Hemoglobin 12.4 g/dL (11.7-13.8)
[2025-02-13 10:48] LABS: INR 1.0; Partial Thromboplastin Time 28.4 Sec (23.9-30.70); Prothrombin Time 11.4 Seconds (9.50-12.1)
== END 2025-02-13 10:07 | disposition home or self-care (01) ==
LOC: CHSLAB 10:07
PROVIDERS: PCP Nurse Practitioner Family; Visit Provider Anesthesiology
DX: N18.32 Chronic kidney disease, stage 3b (principal); D68.59 Other primary thrombophilia; D75.1 Secondary polycythemia; D64.9 Anemia, unspecified
CPT/HCPCS: 36415; 85014; 85018; 85610; 85730

== ENCOUNTER 2025-02-20 00:30 | Day surgery (SDC) | payer MEDICARE, OTHER, SELFPAY ==
[2025-02-12 14:09] VITALS: BMI 26.6
--- NOTE | 2025-02-12 14:21 | PC.NURSE ---
[facility] has started construction of its new state of the art ER which will open Spring 2026. With this, we anticipate parking may be a challenge for some our surgical patients and families. Parking spaces are limited but are available for all Surgical, obstetrics, and ER patients sharing this lot. If you arrive and find you are having a hard time finding a parking space, please note that we understand the challenges, please drive around the hospital and park near Hospital Entrance 1. When you enter this entrance, you can ask a volunteer to direct or take you back to the surgical waiting area to check in. We appreciate everyone?s understanding of these expected challenges while we build for your future. Report to the Outpatient Waiting Room, entrance under the green pavilion located off [address], at time __12:45pm on date __02/20/25 . Planned Procedure Time: 2:45pm .? Time changes happen often and if your time is changed the preop area will call you the afternoon before. - You and your visitor will be asked to self-screen and do not enter if you have any COVID symptoms. Please call surgeon if you need to reschedule. - A mask is optional within the hospital at this time. Patients may have clear liquids (water, carbonated beverages, clear teas, apple juice) until 3 hours prior to surgery with a maximum of 20 ounces. - No food from midnight until time of surgery and no smoking, or chewing tobacco (or any form of nicotine). No chewing gum, candy or mints.(11:45am) Take only the following medications with a SIP of water on the morning of surgery: ___Atenolol and Tylenol if needed DO NOT STOP ANY OF YOUR OTHER PRESCRIPTION MEDICATIONS PRIOR TO SURGERY EXCEPT THE FOLLOWING Hold all vitamins and supplements for [address] Garcia. Date of last dose is 02/12/25 Medications to discontinue per physician ____HOLD ALL NSAIDS and ASPIRIN for [address] GARCIA Date to take last dose 02/12/[address] Garcia office awaiting to hear from Dr Arnold office on HOLDING XARELTO. GRETCHEN will call Son and let him know Xarelto instructions soon. Pt to have Labs done at [facility] tomorrow, orders in system. Please no make-up, nail albanian, hairspray, perfume, deodorant, or body powder the day of surgery.? No jewelry (including any body piercings) or valuables the day of surgery, leave them at home.? Please take a shower or bath the night before, or the morning of, surgery with an antibacterial soap.? Wear comfortable, loose fitting clothing.? - Jewelry must be removed prior to entering the operating room.? Rings and piercings that are not removed may be cut off. - The hospital will not accept responsibility for valuables.? - Please leave all valuables, including medications, at home the day of surgery. If you are going home after surgery, a licensed cdl bulk driver must drive you home.? - NO public transportation without another adult if you receive anesthesia. - We recommend that an adult stay with you for 24 hours following discharge. - We also recommend that you do not drive, make important decision, drink alcoholic beverages, or take any drugs that were not prescribed by your health care provider for at least 24 hours after your discharge time. Follow any additional instructions given to you from your surgeon. Telephone instructions given to __Fabiano/ Chad and asked if any additional questions and then verbalized understanding. Patient advised to call surgeon office or pre surgery nurse liaison [phone] if any additional questions.
--- OUTSIDE RECORDS SUMMARY | 2025-02-20 00:33 | XMS_ITS | Clinical Summary ---
Author Organization [facility] Address [address] [place] [address] Care Team Providers Care Health Technician Hearing Name Role Phone ShalaDarryl danielle Primary Care Provider [phone] Allergies No known active allergies Medications atenolol [...] (NEURONTIN) 300 mg capsule 2 Active vit C,C-Uh-xxmqa-kristal tein-zeaxan (PreserVision AREDS-2) 250-90-40-1 mg Capsule 2 [...] Encounters Date Type Department Care Team Description 01/07/2025 External Device Data [facility] Provider, Abstract 12/24/2024 External Device Data [facility] Provider, [...] on file Legal Sex Female 11:21 AM B2B OUTSIDE SALES REPRESENTATIVE Gender Identity Not on file Sexual Orientation [...] st Contact Info) Description 05/12/2025 1:00 PM B2B OUTSIDE SALES REPRESENTATIVE Office Visit [facility] Oncology and Hematology - [place] [address] [place] [address] Chavo Arnold MD [address] [place] [address] Health Maintenance Due Date Last [...] PART A AND B GENERIC PAYOR [employer] OF [facility] Care Teams Health Technician Hearing Relationship Specialty Start Date End Date Darryl Vanegas DO [address] [place] [id number] PCP - General Family Practice 02/21/24
--- NOTE | 2025-02-20 06:25 | WPDHPUPDATE1 ---
History and Physical Update Update Date/Time: 02/20/25 06:25 History and Physical has been reviewed, including an updated exam of the patient. There are NO changes in the patient's condition. Risks, benefits, and alternatives have been discussed and questions answered. Patient agrees to proceed with procedure.
== END 2025-02-20 12:58 | disposition home or self-care (01) ==
PROVIDERS: PCP Nurse Practitioner Family; Visit Provider Urology
PROC: 0TBB8ZZ Excision of Bladder, Via Natural or Artificial Opening Endoscopic (ICD-10-PCS; principal; 2025-02-20 14:30)
DX: C67.8 Malignant neoplasm of overlapping sites of bladder (principal); Z53.9 Procedure and treatment not carried out, unspecified reason; Z98.890 Other specified postprocedural states
CPT/HCPCS: 99211; G0463; J9201

== ENCOUNTER 2025-02-28 02:23 | Day surgery (SDC) | payer MEDICARE, OTHER, SELFPAY ==
--- NOTE | 2025-02-24 09:26 | PC.NURSE ---
[facility] has started construction of its new state of the art ER which will open Spring 2026. With this, we anticipate parking may be a challenge for some our surgical patients and families. Parking spaces are limited but are available for all Surgical, obstetrics, and ER patients sharing this lot. If you arrive and find you are having a hard time finding a parking space, please note that we understand the challenges, please drive around the hospital and park near Hospital Entrance 1. When you enter this entrance, you can ask a volunteer to direct or take you back to the surgical waiting area to check in. We appreciate everyone?s understanding of these expected challenges while we build for your future. Report to the Outpatient Waiting Room, entrance under the green pavilion located off [address], at time __1:15 pm on date __02/28/25 . Planned Procedure Time: __3:15 pm .? Time changes happen often and if your time is changed the preop area will call you the afternoon before. - You and your visitor will be asked to self-screen and do not enter if you have any COVID symptoms. Please call surgeon if you need to reschedule. - A mask is optional within the hospital at this time. Patients may have clear liquids (water, carbonated beverages, clear teas, apple juice) until 3 hours prior to surgery ( 12:15 pm) with a maximum of 20 ounces. - No food from midnight until time of surgery and no smoking, or chewing tobacco (or any form of nicotine). No chewing gum, candy or mints. - Take only the following medications with a SIP of water on the morning of surgery: ____ATENOLOL, EYE DROPS DO NOT STOP ANY OF YOUR OTHER PRESCRIPTION MEDICATIONS PRIOR TO SURGERY EXCEPT THE FOLLOWING Hold all vitamins and supplements for 3 days per anesthesiologist.LAST DOSE 02/24/25 Medications to discontinue per physician ___PT STATES HOLD XARELTO 3 DAYS PRE OP PER DR TORREZ Date to take last dose 02/24/25 Please no make-up, nail lithuanian, hairspray, perfume, deodorant, or body powder the day of surgery.? No jewelry (including any body piercings) or valuables the day of surgery, leave them at home.? Please take a shower or bath the night before, or the morning of, surgery with an antibacterial soap.? Wear comfortable, loose fitting clothing.? Children are encouraged to wear pajamas. - Jewelry must be removed prior to entering the operating room.? Rings and piercings that are not removed may be cut off. - The hospital will not accept responsibility for valuables.? - Please leave all valuables, including medications, at home the day of surgery. If you are going home after surgery, a licensed taxi cab driver must drive you home.? - NO public transportation without another adult if you receive anesthesia. - We recommend that an adult stay with you for 24 hours following discharge. - We also recommend that you do not drive, make important decision, drink alcoholic beverages, or take any drugs that were not prescribed by your health care provider for at least 24 hours after your discharge time. For Pediatric surgeries, we recommend two adults accompany the child home. Follow any additional instructions given to you from your surgeon. Telephone instructions given to ___PATIENT AND SON FABIANO and asked if any additional questions and then verbalized understanding. Patient advised to call surgeon office or pre surgery nurse liaison [phone] if any additional questions.
[2025-02-24 09:38] VITALS: BMI 26.6
--- NOTE | 2025-02-26 07:00 | PM.HPGS ---
History of Present Illness History of Present Illness Consent: Risks, benefits, and alternatives have been discussed and questions answered. Patient agrees to proceed with procedure. Chief complaint: bladder CA Narrative: Malia Selby is a 84 year old female: 03/2024: ?CT-abd/pelvis wo/ contrast: unremarkable ?Cysto., bilat. RPG: normal upper tracts ?TURBT: Ta, High-grade ?[Intermediate Risk] ?Plan: ?Surveillance cysto.: - every 3-months x2-years ?* ?every 6-months x2-years ?* ?annually forever ?- cytology with each cysto ?BCG: - consider iBCG ?- may use mBCG x1-year ?Imaging: - every 2-years 07/2024: ?Cysto: normal ?Cytology: normal 10/2024: ?Cysto: normal ?Cytology: inflammation without malignancy 02/2025: 2-3 cm recurrence in the left posterolateral bladder wall and a tiny 1 in the left anterolateral bladder wall Review of Systems Review of Systems: All systems reviewed & are unremarkable except as noted in HPI and below PMFSH Past Medical History Medical History History of pulmonary embolism Hyponatremia Hyponatremia Acute renal failure Pulmonary embolism DVT (deep venous thrombosis) Overweight Osteoarthritis knees Hyperlipidemia HTN (hypertension) Surgical History Surgical History History of appendectomy 2002 Hx of hysterectomy 2002 Family History Family History Father Hypertension Family history of arthritis Other Family history of malignant neoplasm Social History Social History Smoking status: Never smoker Second hand tobacco smoke exposure: No Alcohol intake: never Substance use: never Substance use type: does not use Do You Feel Safe in your Home?: Yes Lack of Transportation: No Lack of Food: Never True Current Housing: I Have Housing Concerned About Future Housing: No Difficulty Paying Gas/Electric Bills: No Difficulty Paying for Meds: No Currently Unemployed: No Education: High School Diploma/GED Difficulty w/ Childcare or Family Care: No Living arrangements: with family Additional living arrangements comments: Daughter Gender identity (if verbalized by the patient): Female Spiritual care concerns: No Meds Home Medications and Allergies Home Medications ?Medication ?Instructions ?Recorded ?Confirmed ?Type acetaminophen 650 mg 650 mg PO DAILY PRN Pain 08/06/19 02/24/25 History tablet,extended release (Arthritis Pain Relief (acetaminophen) ER) sodium chloride 5 % eye ointment 1 applic EACH EYE HS 02/03/21 02/24/25 History (Romi 128) ascorbic acid (vitamin C) 500 mg 500 mg PO DAILY 11/13/23 02/24/25 History capsule vitamin E (dl, acetate) 450 mg 400 mg PO DAILY 11/13/23 02/24/25 History (1,000 unit) capsule sodium chloride 5 % eye drops 1 drp EACH EYE TID 03/18/24 02/24/25 History ferrous sulfate 325 mg (65 mg 325 mg PO DAILY 08/12/24 02/24/25 History iron) tablet rivaroxaban 20 mg tablet 20 mg PO DAILY 08/12/24 02/24/25 History atenolol 50 mg tablet See Rx Instructions .Route 11/14/24 02/24/25 Rx .COMPLEX #180 tabs losartan 50 mg tablet 50 mg PO DAILY #30 tabs 12/09/24 02/24/25 Rx chlorthalidone 25 mg tablet See Rx Instructions .Route 02/04/25 02/24/25 Rx .COMPLEX #90 tabs Allergies Allergy/AdvReac Type Severity Reaction Status Date / Time Ooywbff-JWZ-WyN Reductase Allergy Intermediate Unknown Verified 02/24/25 09:23 Inhibitor (Igpytgj-Jzb-Ssg Reductase Inhibitor) Exam Const: General: no acute distress Resp: Effort & Inspection: normal respiratory effort GI: Inspection: non-distended GI Palp: No abdominal tenderness and No Guarding due to palpation present (GI) Auscultation: normal bowel sounds Assessment and Plan Assessment and plan (1) Cancer of overlapping sites of bladder: Code(s): C67.8 - Malignant neoplasm of overlapping sites of bladder Status: Acute Assessment and Plan: TURBT with Gemcitabine instillation
[2025-02-28] VITALS (9 sets, daily range): BP systolic 160–198; BP diastolic 51–70; PULSE 50–63; RESP 12–16; TEMP 36.4–36.6; O2SAT 98–100
--- NOTE | 2025-02-28 06:29 | WPDHPUPDATE1 ---
History and Physical Update Update Date/Time: 02/28/25 06:29 History and Physical has been reviewed, including an updated exam of the patient. There are NO changes in the patient's condition. Risks, benefits, and alternatives have been discussed and questions answered. Patient agrees to proceed with procedure.
[2025-02-28] MEDS: LACTATED RINGERS 1,000 ML 30 ML IV CONT ×2 (14:00→16:58)
--- NOTE | 2025-02-28 14:08 | WPDANESEPPF ---
Anes - Initial Pre Proc Eval Procedure: Operation Date: 02/28/25 16:15 Proposed Procedures p Trans Urethral Resection Bladder Tumor with Gemcitabine Instillation - Kai Garcia MD Date/Time: 02/28/25 14:08 Surgeon: Kai Garcia MD Pre Op Diagnosis: bladder CA Patient Data Age: 84 Gender: F Height: 1.68 m Weight: 74.8 kg Allergies Allergy/AdvReac Type Severity Reaction Status Date / Time Dkvlwxg-RWT-EsM Reductase Allergy Intermediate Unknown Verified 02/24/25 09:23 Inhibitor (Rrhwcai-Nms-Orf Reductase Inhibitor) Home Medications ?Medication ?Instructions ?Recorded ?Confirmed ?Type acetaminophen 650 mg 650 mg PO DAILY PRN Pain 08/06/19 02/24/25 History tablet,extended release (Arthritis Pain Relief (acetaminophen) ER) sodium chloride 5 % eye ointment 1 applic EACH EYE HS 02/03/21 02/24/25 History (Romi 128) ascorbic acid (vitamin C) 500 mg 500 mg PO DAILY 11/13/23 02/24/25 History capsule vitamin E (dl, acetate) 450 mg 400 mg PO DAILY 11/13/23 02/24/25 History (1,000 unit) capsule sodium chloride 5 % eye drops 1 drp EACH EYE TID 03/18/24 02/24/25 History ferrous sulfate 325 mg (65 mg 325 mg PO DAILY 08/12/24 02/24/25 History iron) tablet rivaroxaban 20 mg tablet 20 mg PO DAILY 08/12/24 02/24/25 History atenolol 50 mg tablet See Rx Instructions .Route 11/14/24 02/24/25 Rx .COMPLEX #180 tabs losartan 50 mg tablet 50 mg PO DAILY #30 tabs 12/09/24 02/24/25 Rx chlorthalidone 25 mg tablet See Rx Instructions .Route 02/04/25 02/24/25 Rx .COMPLEX #90 tabs Patient hx anesthesia problems: none Family hx anesthesia problems: none Results Review: All pre-operative results and documents have been reviewed as part of the pre-operative evaluation. [facility] Past Medical History Medical History History of pulmonary embolism Hyponatremia Hyponatremia Acute renal failure Pulmonary embolism DVT (deep venous thrombosis) Overweight Osteoarthritis knees Hyperlipidemia HTN (hypertension) Surgical History Surgical History History of appendectomy 2002 Hx of hysterectomy 2002 Family History Family History Father Hypertension Family history of arthritis Other Family history of malignant neoplasm Social History Social History Smoking status: Never smoker Second hand tobacco smoke exposure: No Alcohol intake: never Substance use: never Substance use type: does not use Do You Feel Safe in your Home?: Yes Lack of Transportation: No Lack of Food: Never True Current Housing: I Have Housing Concerned About Future Housing: No Difficulty Paying Gas/Electric Bills: No Difficulty Paying for Meds: No Currently Unemployed: No Education: High School Diploma/GED Difficulty w/ Childcare or Family Care: No Living arrangements: with family Additional living arrangements comments: Daughter Gender identity (if verbalized by the patient): Female Spiritual care concerns: No Anes - Eval Final PreProcedure Day of Procedure 02/28/25 14:08 Patient weight: normal Lungs: normal air movement Airway: Mallampati scale class II Neurological: alert and oriented Last oral intake: >/= 8 hours ASA classification: III Emergent: no Anesthetic plan: proceed Anesthesia type and monitoring: general LMA and standard monitoring Results Review: All pre-operative results and documents have been reviewed as part of the pre-operative evaluation. HTN, CKD 3, hx of bladder cancer, hx of PE 2020, AC held for several days. Informed Consent: The patient's anesthetic plan and its attendant risks and benefits were discussed with the patient/family/POA. Questions were solicited and answers provided to the satisfaction of the patient/family/POA.
[2025-02-28] MEDS: ceFAZolin 2 GM in SODIUM CHLORIDE 0.9% IV 50 ML 100 ML IVPB (16:00)
[2025-02-28] MEDS: LIDOCAINE 2% GEL UROJET 10 ML PKG MUCOUS MEM (16:11)
--- NOTE | 2025-02-28 16:12 | S_PTH ---
PATIENT: Malia Selby LOC: [facility] U#:[id number] AGE/SX: 84/F ROOM: RE02/28/[address]: Kai Garcia MD : 1940 BED: DIS: 02/28/2025 SPEC #: [id number] RECD: 03/03/25 07:10 STATUS: DENIZ REQ #: [id number] DOYLE: 02/28/25 16:[address]: Kai Garcia DEPT: [facility] [place] Surgical RECD BY: Bárbara Witt ENTERED: 03/03/25 07:10 SP TYPE: Surgical OTHR DR: Kim Tavera, ROOMS DIRECTOR Tissues: A - Bladder TURBT Procedures: Hematoxylin and Eosin Stain Gross and Microscopic Level 5
[2025-02-28] MEDS: SODIUM CHLORIDE 0.9% IV 23.7 ML, GEMCITABINE HCL 1,000 MG BLADDER ×2 (16:29→16:30)
--- NOTE | 2025-02-28 16:32 | P.OP_ITS ---
Procedure Note - Detailed Date of Procedure 02/28/25 Pre-op Diagnosis Bladder CA Post-op Diagnosis Same Procedure Performed TURBT (medium, 3cm) Surgeon Kai Garcia MD Anesthesia General Description of Procedure Patient brought the operative suite she was prepped draped in routine sterile fashion while in dorsal lithotomy position after the uneventful induction of a general LMA anesthetic. Cystoscopy was undertaken with a 24 F resectoscope. The bladder was very carefully inspected. She has about a 3 cm papillary superficial appearing lesion in the right anterior lateral bladder wall in a similar, but smaller will 1, in the left posterior lateral bladder wall. Each of these is resected with a 24 F loop with an attempt made to include detrusor muscle for pathological evaluation of invasion. The base and periphery were cauterized. This is all done with care to avoid injury to the ureteral or ifices. An 18 F Ferreira catheter is placed for gemcitabine installation. Scopes wires removed she was taken recovery good condition. Drains No Packing No Pathology Yes Complications No immediate complications Condition Stable
--- NOTE | 2025-02-28 16:34 | W.PM.PROC2 ---
Procedure Note - Detailed Date of Procedure 02/28/25 Pre-op Diagnosis Bladder CA Post-op Diagnosis Same Procedure Performed Gemcitabine installation Surgeon Kai Garcia MD Anesthesia General Description of Procedure With the patient in the supine position, a 16F Ferreria catheter is placed using sterile technique. Using a protective facemask, gown and double layer of gloves Gemcitabine 2gm in 100cc saline is administered through the catheter/into the bladder. The catheter is then plugged. Patient was instructed to lie supine x20min, then to roll both the left and right x20 min. each. Total dwell time will be 60 min., after which the bladder will be drained and catheter removed.
[2025-02-28] MEDS: fentaNYL CITRATE INJ (*CRX) 100 MCG/2 ML VIAL 25 MCG IV PUSH ×4 (16:46→17:31)
== END 2025-02-28 18:19 | disposition home or self-care (01) ==
PROVIDERS: PCP Nurse Practitioner Family; Visit Provider Urology
PROC: 0TBB8ZZ Excision of Bladder, Via Natural or Artificial Opening Endoscopic (ICD-10-PCS; CPT 52235; principal; 2025-02-28 16:15)
DX: C67.3 Malignant neoplasm of anterior wall of bladder (principal); C67.2 Malignant neoplasm of lateral wall of bladder; E78.5 Hyperlipidemia, unspecified; I12.9 Hypertensive chronic kidney disease with stage 1 through stage 4 chronic kidney disease, or unspecified chronic kidney disease; N18.30 Chronic kidney disease, stage 3 unspecified; M17.0 Bilateral primary osteoarthritis of knee; E87.1 Hypo-osmolality and hyponatremia; Z79.01 Long term (current) use of anticoagulants; Z98.890 Other specified postprocedural states; Z86.718 Personal history of other venous thrombosis and embolism; Z80.9 Family history of malignant neoplasm, unspecified
CPT/HCPCS: 52235; 51720; 88307; J0690; J0360; J2003; J2405; J2704; J3010; J7120; J9201